=== PATIENT | female | born 1960 | race Caucasian/White ===

== ENCOUNTER 2018-06-18 15:01 | Inpatient (IN) | payer OTHER ==
[2018-06-18 16:01] LABS: ABSOLUTE BASOPHILS # (AUTO) 0.1 10^3/uL (0.0-0.2); ABSOLUTE LYMPHOCYTES (AUTO) 0.7 10^3/uL (0.5-4.7); ABSOLUTE MONOCYTES (AUTO) 0.7 10^3/uL (0.1-1.4); ABSOLUTE NEUT (AUTO) 6.8 10^3/uL (1.7-8.2); BASOPHILS % (AUTO) 0.6 % (0-2); EOSINOPHILS % (AUTO) 0.1 % (0-6); HEMATOCRIT 35.4 % (36.0-47.0); HEMOGLOBIN 12.1 g/dL (12.0-15.5); LYMPHOCYTES % (AUTO) 8.3 % (13-45); MEAN CORPUSCULAR HEMOGLOBIN 29.3 pg (27.0-33.4); MEAN CORPUSCULAR HGB CONC 34.3 g/dL (32.0-36.0); MEAN CORPUSCULAR VOLUME 86 fl (80-97); MONOCYTES % (AUTO) 8.3 % (3-13); PLATELET COUNT 298 10^3/uL (150-450); RED BLOOD COUNT 4.13 10^6/uL (3.72-5.28); RED CELL DISTRIBUTION WIDTH 17.1 % (11.5-14.0); SEGMENTED NEUTROPHILS % (AUTO) 82.7 % (42-78); TOTAL CELLS COUNTED % (AUTO) 100 %; WHITE BLOOD COUNT 8.3 10^3/uL (4.0-10.5)
[2018-06-18 16:18] LABS: ALANINE AMINOTRANSFERASE 58 U/L (9-52); ALBUMIN 3.3 g/dL (3.5-5.0); ALKALINE PHOSPHATASE 118 U/L (38-126); ANION GAP 16 (5-19); ASPARTATE AMINO TRANSFERASE 106 U/L (14-36); BILIRUBIN,DIRECT 0.5 mg/dL (0.0-0.4); BILIRUBIN,TOTAL 0.5 mg/dL (0.2-1.3); BLOOD UREA NITROGEN 18 mg/dL (7-20); CALCIUM 8.2 mg/dL (8.4-10.2); CARBON DIOXIDE 16 mmol/L (22-30); CHLORIDE 111 mmol/L (98-107); GLUCOSE 122 mg/dL (75-110); POTASSIUM 3.4 mmol/L (3.6-5.0); SODIUM 142.8 mmol/L (137-145); TOTAL PROTEIN 6.7 g/dL (6.3-8.2)
[2018-06-18 16:20] LABS: ACETAMINOPHEN < 10 ug/mL (10-30); ALCOHOL < 10 mg/dL (NONE DETECTED)
[2018-06-18 16:30] LABS: NT PRO BNP 336 pg/mL (5-900)
[2018-06-18 16:31] LABS: SALICYLATE 68.3 mg/dL (2.0-20.0)
[2018-06-18 16:32] LABS: TROPONIN I < 0.012 ng/mL
[2018-06-18 16:34] LABS: FREE T4 (FREE THYROXINE) 1.28 ng/dL (0.78-2.19)
[2018-06-18 16:48] LABS: THYROID STIMULATING HORMONE 0.78 uIU/mL (0.47-4.68)
[2018-06-18] MEDS ORDERED: SODIUM BICARBONATE 8.4% INJ 50 MEQ/50 ML DISP.SYRIN ONE (16:57)
--- NOTE | 2018-06-18 17:01 | PSYCHOLOGICAL NOTE ---
Psych Note - Psych Note Date seen by psych provider: 06/18/18 Time seen by psych provider: 16:22 - Chart review at 1620. Evaluation from 1622- 1635. Psych Note: Reason for Consult: Anxiety, Grief, noncompliant with all medications x 3 months Contact Permissions: Unknown. Noted a friend/Volunteer Fire at [facility] Patient is a 57 year old female who presented to the ED today via EMS for nausea and anxiety, was administered Zofran 4MG IV and Benadryl 25MG IV via EMS (friend who is Volunteer at [facility] and helps with taking care of the land), reported she had been living out of her car the past 3 weeks and been off all medications the past 3 months. She reported she quit taking her medications in February 2018. She mentioned the sciatic pain/vertebrate pain (she admitted she was taking a lot of BC Powder to manage the pain, the ringing in her ears was be tter) brought out her emotional pain, she "was holding so much in and did not know, I started spiraling and hit bottom." She reported "I am in touch with reality, I can say my name, add up numbers, recall dates and events and know the president, I am lucid." She acknowledged her son shot and killed himself 4.5 years ago at age 22 on 2014. She commented "that was my only son, I have nothing now." When asked about SI she stated "I have honestly and deeply asked myself that, I don't want to kill myself, I wish God would give me a reason to be alive, I came close, I didn't care, I have never not cared." She admitted "I have thoughts of wanting to join my son, not active SI but passive, like if a train was coming and I was there would I get out of the way I don't know but I would not do something intentional." She identified she was prescribed Citalopram 20MG QD until 4.5 years ago when her son killed himself then it was increased to 40MG QD, Gabapentin 300MG (unknown frequency), Lisinopril and something for under active Thyroid issues (was Synthroid, but did not work, so used something else, thinks it was Thyroxaline). She stated she stopped her medication abruptly in February 2018. She reported she goes to [facility] and [facility] in [place] is pharmacy. She denied previous MH hospitalizations. 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 She stated she has [address] acres [address] land with a cabin that has a brand new bed and a horse trailer so she is not homeless. Patient was alert and oriented to self, person, place, time and situation. Mood was depressed with congruent affect as evidenced by tearful and crying but at appropriate times (talking about the of her son). She denied current SI/HI, stated she often wishes she would join her son, denied active SI, no plan/preparation and no previous attempts. She did not appear to be responding to internal stimuli as evidenced fair eye contact, answering questions appropriately when addressed, staying on topic, carrying on dialogue conversation and being engaged in evaluation. Thought processes were linear. Conversational speech was within normal limits for rate, tone and prosody. Intellectual abilities are estimated to be average. Insight, judgment and impulse control were fair as evidenced by discussing and processing her grief and current situation. Diagnosis: Noncompliant with all medications x 3 months V62.82 (Z63.4) Uncomplicated Bereavement 311 (F32.9) Unspecified Depressive Disorder Medication recommendations made by the psychiatric medical provider, Dr. Jassi MD., includes: Request Thyroid Level Add Effexor 37.5MG kirk for depression/increased energy Add Buspar 5MG twice a day for anxiety/calming effect/depression/sleep Impression/Plan: Recommendation to keep as overnight MH hold for observation, mainly to ensure she tolerated medication well. Starting new psychiatric medications to address depression, anxiety and grief. She denied current SI/HI, past attempts and no observed psychosis. Consulted with Dr. Patel regarding the management and care of patient. ED Physician aware of recommendations and reported patient is being admitted for elevated salicylate levels from taking BC Powders for pain. Please re consult the [facility] Behavioral Health team if needed when patient is ready for discharge. Thank you.
[2018-06-18] MEDS ORDERED: RINGERS SOLUTION,LACTATED 1,000 ML IV ONE (17:11)
--- NOTE | 2018-06-18 17:13 | ER Document Report ---
ED General - General Chief Complaint: Anxiety Stated Complaint: ANXIETY Time Seen by Provider: 06/18/18 15:11 Notes: Patient is a 57-year-old female with history of hypothyroidism, depression, anxiety, hypertension that presents to the emergency department for chief complaint of sciatic pain. Patient was reportedly found walking on the street, partially closed, her feet were covered in dirt, and was brought in by EMS. Patient at this time has pressured speech, and claiming she has back pain rating to her legs, claims a history of sciatica. She states she has been taking her medication for about 3 months, has been living in her car for about 3 weeks. She has been taking BC powders, she states at least 2 packets every 8 hours but sometimes she was taking that more frequently than that every 4 hours for her pain. She has been having tinnitus as a result of this. And some confusion. She denies having any difficulty breathing, chest pain, shortness of breath, abdominal pain, but she has been having nausea and vomiting which she did have when she was taking the BC powders more frequently. Past Medical History: Hypertension, hypothyroidism, depression, anxiety, sciatica Past Surgical History: Denies major surgical history Social History: Denies tobacco, alcohol or drug use. Was a former smoker. Family History: Reviewed and noncontributory for presenting illness Allergies: Reviewed, see documented allergy list. REVIEW OF SYSTEMS: Other than noted above, the 12 point review of systems was reviewed with the patient and were negative, all pertinent findings are included in the HPI. PHYSICAL EXAMINATION: Vital signs reviewed, nursing noted reviewed. GENERAL: Patient is morbidly obese, disheveled, covered in dirt on her feet and legs HEAD: Atraumatic, normocephalic. EYES: Eyes appear normal, extraocular movements intact, sclera anicteric, conjunctiva are normal. ENT: nares patent, oropharynx clear without exudates. Moist mucous membranes. NECK: Normal range of motion, supple without lymphadenopathy LUNGS: Diminished lung sounds throughout, without wheezing, rhonchi or rales., No significant respiratory distress. HEART: Heart rate tachycardic, regular rhythm, no audible murmur. ABDOMEN: Soft, obese, nontender, normoactive bowel sounds. No rebound, guarding, or rigidity. No masses appreciated. EXTREMITIES: Significant bilateral lower extremity edema, to the mid thighs, no significant tenderness to palpation to the feet. NEUROLOGICAL: Patient is somewhat confused, and has a bizarre affect as noted below, moves all extremities spontaneously Motor and sensory grossly intact on exam. PSYCH: Pressured speech, bizarre affect. SKIN: Warm, Dry, normal turgor, venous stasis skin changes noted to the lower extremities bilaterally. Suspected candidal infection under the breast, and abdominal folds and skin of the legs. TRAVEL OUTSIDE OF THE [place] IN LAST 30 DAYS: No Past Medical History - Social History Smoking Status: Never Smoker Family History: Reviewed & Not Pertinent Patient has suicidal ideation: No Patient has homicidal ideation: No - Past Medical History Cardiac Medical History: Reports: Hx Hypercholesterolemia, Hx Hypertension Renal/ Medical History: Denies: Hx Peritoneal Dialysis Psychiatric Medical History: Reports: Hx Depression Physical Exam - Vital signs Vitals: Temp Pulse Resp BP Pulse Ox 99.0 F 160 H 22 H 168/90 H 100 06/18/18 15:38 06/18/18 15:38 06/18/18 15:38 06/18/18 15:38 06/18/18 15:38 Course - Re-evaluation Re-evalutation: Patient seen and examined vital signs reviewed. Laboratory data and imaging were ordered as appropriate for the patient's presenting symptoms and complaint, with consideration of any critical or life threatening conditions that may be associated with their obtained history and exam as noted above. Patient was treated with IV fluid, and started on IV bicarb infusion, Results were reviewed when available and demonstrated severely elevated salicylate level, metabolic acidosis, concerning for chronic salicylate toxicity the patient did have tinnitus, which is consistent with this, and she is somewhat confused, she is protecting her airway, and not lethargic. The patient was re-evaluated and was complaining of some pain, she is given a low dose of fentanyl 25 mcg for her sciatica type pain. Evaluation was most consistent with chronic salicylate toxicity, with high salicylate level, requiring admission to the hospital, with metabolic acidosis Results were discussed with the patient at this point after careful consideration I feel that that patient should be admitted to the hospital. This was discussed with the patient that it is in the best interest for their care to be admitted for further evaluation and management. Patient agreed with this plan of care. A call was placed to the admitted physician, Dr. Kc who graciously accepted the patient onto their service. *Note is created using voice recognition software and may contain spelling, syntax or grammatical errors. Laboratory 06/18/18 06/18/18 06/18/18 15:43 15:43 15:43 WBC 8.3 RBC 4.13 Hgb 12.1 Hct 35.4 L MCV 86 MCH 29.3 MCHC 34.3 RDW 17.1 H Plt Count 298 Seg Neutrophils % 82.7 H Lymphocytes % 8.3 L Monocytes % 8.3 Eosinophils % 0.1 Basophils % 0.6 Absolute Neutrophils 6.8 Absolute Lymphocytes 0.7 Absolute Monocytes 0.7 Absolute Eosinophils 0.0 Absolute Basophils 0.1 Sodium 142.8 Potassium 3.4 L Chloride 111 H Carbon Dioxide 16 L Anion Gap 16 BUN 18 Creatinine 1.19 Est GFR ( Amer) 56 L Est GFR (Non-Af Amer) 46 L Glucose 122 H Calcium 8.2 L Total Bilirubin 0.5 Direct Bilirubin 0.5 H Neonat Total Bilirubin Not Reportable Neonat Direct Bilirubin Not Reportable Neonat Indirect Bili Not Reportable AST 106 H ALT 58 H Alkaline Phosphatase 118 Creatine Kinase Troponin I < 0.012 NT-Pro-B Natriuret Pep 336 Total Protein 6.7 Albumin 3.3 L TSH Free T4 Salicylates 68.3 H* Acetaminophen < 10 L Serum Alcohol < 10 06/18/18 06/18/18 15:43 15:43 WBC RBC Hgb Hct MCV MCH MCHC RDW Plt Count Seg Neutrophils % Lymphocytes % Monocytes % Eosinophils % Basophils % Absolute Neutrophils Absolute Lymphocytes Absolute Monocytes Absolute Eosinophils Absolute Basophils Sodium Potassium Chloride Carbon Dioxide Anion Gap BUN Creatinine Est GFR ( Amer) Est GFR (Non-Af Amer) Glucose Calcium Total Bilirubin Direct Bilirubin Neonat Total Bilirubin Neonat Direct Bilirubin Neonat Indirect Bili AST ALT Alkaline Phosphatase Creatine Kinase 260 H Troponin I NT-Pro-B Natriuret Pep Total Protein Albumin TSH 0.78 Free T4 1.28 Salicylates Acetaminophen Serum Alcohol - Vital Signs Vital signs: Temp Pulse Resp BP Pulse Ox 99.0 F 160 H 22 H 110/54 L 99 06/18/18 15:38 06/18/18 15:38 06/18/18 19:48 06/18/18 19:48 06/18/18 19:48 - Laboratory Result Diagrams: 06/18/18 15:43 06/18/18 19:40 Laboratory results interpreted by me: 06/18/18 06/18/18 06/18/18 15:43 15:43 15:43 Hct 35.4 L RDW 17.1 H Seg Neutrophils % 82.7 H Lymphocytes % 8.3 L Potassium 3.4 L Chloride 111 H Carbon Dioxide 16 L Est GFR ( Amer) 56 L Est GFR (Non-Af Amer) 46 L Glucose 122 H Calcium 8.2 L Direct Bilirubin 0.5 H AST 106 H ALT 58 H Creatine Kinase 260 H Albumin 3.3 L Salicylates 68.3 H* Acetaminophen < 10 L - EKG Interpretation by Me Additional EKG results interpreted by me: EKG demonstrates sinus tachycardia with a ventricular rate of 100 bpm, normal axis, normal intervals, no evidence of acute ischemia in this EKG. Critical Care Note - Critical Care Note Total time excluding time spent on procedures (mins): 35 Comments: Critical care time 5 minutes exclusive from separate billable procedures for a patient requiring complex medical decision making, and high potential for clinical deterioration. In a patient with salicylate toxicity requiring acute management and treatment and admission to the hospital. Time spent obtaining history from patient or surrogate, discussions with consultants, development of treatment plan with patient or surrogate, evaluation of patient's response to treatment, examination of patient, ordering and performing treatments and interventions, ordering and review of laboratory studies, re-evaluation of patient's condition, ordering and review of radiographic studies and review of old charts Discharge - Discharge Clinical Impression: Metabolic acidosis, Toxic metabolic encephalopathy, Hypokalemia Salicylate intoxication Qualifiers: Encounter type: initial encounter Injury intent: accidental or unintentional Qualified Code(s): T39.091A - Poisoning by salicylates, accidental (uninte ntional), initial encounter Condition: Stable Disposition: ADMITTED INPATIENT Admitting Provider: De (Hospitalist) Unit Admitted: [facility]
[2018-06-18] MEDS: DEXTROSE 5%-WATER 1000 ML 1,000 ML with SODIUM BICARBONATE 150 MEQ IV PRN ×2 (17:18)
[2018-06-18] MEDS ORDERED: FENTANYL CITRATE INJ/PF 100 MCG/2 ML AMPUL IV ONE (17:44)
[2018-06-18] MEDS ORDERED: LEVALBUTEROL HCL NEB 1.25 MG/3 ML AMPUL NEB PRN (18:15)
[2018-06-18] MEDS ORDERED: ONDANSETRON 4 MG TAB.RAPDIS PO PRN (18:25)
[2018-06-18] MEDS ORDERED: MAG HYDROX/AL HYDROX/SIMETH SUSP 30 ML UDCUP PO PRN (18:25)
[2018-06-18] MEDS ORDERED: POTASSI CL 20 MEQ/50 ML RIDER 20 MEQ/50 ML RTUPB IV ONE (19:30)
[2018-06-18] MEDS ORDERED: POTASSIUM CHLORIDE 10 MEQ CAPSULE.ER PO ONE (19:37)
[2018-06-18 19:45] LABS: ARTERIAL BLOOD FIO2 ROOM AIR; ARTERIAL BLOOD H2CO3 0.61 mmol/L (1.05-1.35); ARTERIAL BLOOD HCO3 16.9 mmol/L (20-24); ARTERIAL BLOOD O2 SATURATION 98.6 % (94-98); ARTERIAL BLOOD PH 7.54 (7.35-7.45); ARTERIAL BLOOD PO2 112.4 mmHg (80-100); ARTERIAL BLOOD TOTAL CO2 17.5 mmol/L (21-25)
[2018-06-18 19:47] LABS: ARTERIAL BLOOD PCO2 20.3 mmHg (35-45)
--- NOTE | 2018-06-18 19:48 | PDOC H&P ---
History of Present Illness Admission Date/PCP: 06/18/18 17:40 MARILYN RUDD PA-C Patient complains of: salicylate toxicity History of Present Illness: GEOFF ALMEIDA is a 57 year old female who is on line of duty disability from the [employer]. She was found wandering and confused. She has chronic sciatica and has been taking salicylate-containing products long-term. Her salicylate level was 60. She is disheveled and unkempt. She has deteriorated since February. February 14 was the 4-year anniversary of her son's suicide. She states that in the beginning of May she woke up and her legs were numb She could not move them. She had a lot of pain from the sciatica. Her legs were shaking and she felt paralyzed. Her legs would not move. There is nothing that gave her relief. She reports that she had to crab crawl to get into the ambulan ce. She is exhibiting pressured speech and restlessness/agitation. She expresses that she has been overwhelmed. There are times when she feels that she is going to explode from the psychological pressures of her depression. 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 Past Surgical History Past Surgical History: Reports: Herniorrhaphy, Orthopedic Surgery - Right thumb Social History Information Source: Patient Lives with: Alone, Homeless - Possibly homeless Smoking Status: Never Smoker Frequency of Alcohol Use: None Hx Recreational Drug Use: No Drugs: None Hx Prescription Drug Abuse: No - Advance Directive Resuscitation Status: Full Code Family History Family History: CAD, DM, Other - Suicide Parental Family History Reviewed: Yes Children Family History Reviewed: Yes - Son committed suicide Sibling(s) Family History Reviewed.: Yes Review of Systems Constitutional: PRESENT: headache(s), weakness - Especially legs. ABSENT: fever(s) Eyes: ABSENT: visual disturbances Ears: PRESENT: hearing changes - Slightly hard of hearing Nose, Mouth, and Throat: ABSENT: mouth pain, sore throat Cardiovascular: PRESENT: edema. ABSENT: chest pain, palpitations Respiratory: PRESENT: dyspnea. ABSENT: cough, sputum Gastrointestinal: PRESENT: heartburn. ABSENT: abdominal pain, constipation, diarrhea, hematochezia, melena, nausea, vomiting Genitourinary: ABSENT: dysuria, hematuria Musculoskeletal: PRESENT: other - Marked bilateral lower extremity lymphedema Integumentary: PRESENT: erythema - Redness distal legs likely stasis dermatitis from chronic significant lymphedema, lesions - Keratin scaling on lower extremities from chronic severe lymphedema Neurological: PRESENT: numbness - Reports tingling and numbness in her legs, other - Difficult to assess Psychiatric: PRESENT: depression, other - Agitation Endocrine: PRESENT: polyuria - Reports significant urine production. ABSENT: cold intolerance, heat intolerance, polyphagia Hematologic/Lymphatic: ABSENT: easy bruising, lymphadenopathy Allergic/Immunologic: ABSENT: seasonal rhinorrhea Physical Exam Vital Signs: Temp Pulse Resp BP Pulse Ox 99.0 F 160 H 21 H 105/56 L 98 06/18/18 15:38 06/18/18 15:38 06/18/18 18:01 06/18/18 18:01 06/18/18 18:01 General appearance: PRESENT: disheveled, morbidly obese, severe distress - Moderate to severe distress, well-developed Head exam: PRESENT: atraumatic, normocephalic Eye exam: PRESENT: conjunctiva pink, EOMI. ABSENT: scleral icterus Ear exam: PRESENT: normal external ear exam Mouth exam: PRESENT: dry mucosa, tongue midline Neck exam: ABSENT: carotid bruit, JVD, lymphadenopathy, tenderness Respiratory exam: PRESENT: clear to auscultation naz, symmetrical, tachypnea, unlabored. ABSENT: rales, rhonchi, wheezes Cardiovascular exam: PRESENT: RRR, +S1, +S2 GI/Abdominal exam: PRESENT: normal bowel sounds, soft, other - Pendulous abdomen. ABSENT: tenderness Rectal exam: PRESENT: deferred Gentrourinary exam: ABSENT: indwelling catheter Extremities exam: PRESENT: pedal edema - Marked lower extremity chronic lymphedema with associated skin changes Neurological exam: PRESENT: alert, awake, oriented to person, oriented to place, oriented to time, oriented to situation. ABSENT: motor sensory deficit Psychiatric exam: PRESENT: agitated, unusual affect Focused psych exam: PRESENT: pressured speech Skin exam: PRESENT: erythema, rash - Stasis dermatitis, other - Keratin scaling Results Laboratory Results: 06/18/18 15:43 06/18/18 15:43 06/18/18 06/18/18 06/18/18 15:43 15:43 15:43 WBC 8.3 RBC 4.13 Hgb 12.1 Hct 35.4 L MCV 86 MCH 29.3 MCHC 34.3 RDW 17.1 H Plt Count 298 Seg Neutrophils % 82.7 H Lymphocytes % 8.3 L Monocytes % 8.3 Eosinophils % 0.1 Basophils % 0.6 Absolute Neutrophils 6.8 Absolute Lymphocytes 0.7 Absolute Monocytes 0.7 Absolute Eosinophils 0.0 Absolute Basophils 0.1 Sodium 142.8 Potassium 3.4 L Chloride 111 H Carbon Dioxide 16 L Anion Gap 16 BUN 18 Creatinine 1.19 Est GFR ( Amer) 56 L Est GFR (Non-Af Amer) 46 L Glucose 122 H Calcium 8.2 L Total Bilirubin 0.5 AST 106 H ALT 58 H Alkaline Phosphatase 118 Total Protein 6.7 Albumin 3.3 L TSH 0.78 Free T4 1.28 06/18/18 15:43 Troponin I < 0.012 NT-Pro-B Natriuret Pep 336 Assessment and Plan - Diagnosis (1) Salicylate intoxication Qualifiers: Encounter type: initial encounter Injury intent: accidental or unintentional Qualified Code(s): T39.091A - Poisoning by salicylates, accidental (unintentional), initial encounter Is this a current diagnosis for this admission?: Yes Plan: The patient was taking salicylate-containing medications for sciatica with chronic back pain. She developed salicylate toxicity from long-term use. Her salicylate level was 62. She will require admission to the ICU. Bicarbonate drip. Close monitoring of salicylate levels, urine pH and electrolytes. We will titrate the bicarb drip to achieve a urine pH of 7.5-8.0. Once the salicylate level is less than 40 alkalinization can be discontinued. (2) Metabolic acidosis Is this a current diagnosis for this admission?: Yes Plan: Secondary to salicylate toxicity. Bicarb drip and close monitoring of electrolytes. Low serum potassium is expected with the bicarb infusion. (3) Hypokalemia Is this a current diagnosis for this admission?: Yes Plan: Serum potassium on admission was only 3.2. With the use of sodium bicarbonate the serum potassium will drop. I have ordered 20 mEq to be given now and she will likely need aggressive potassium supplementation through the night. (4) Hypertension Qualifiers: Hypertension type: essential hypertension Qualified Code(s): I10 - Essential (primary) hypertension Is this a current diagnosis for this admission?: Yes Plan: I have started losartan 25 mg daily. She does have a history of hypertension but stopped taking medicine months ago. (5) Depression Qualifiers: Depression Type: major depressive disorder Is this a current diagnosis for this admission?: Yes Plan: Please see the psychiatry note. The patient has been extremely depressed since her son committed suicide in 2014 on February 14. The patient began to decline at this anniversary date. On May 15 she decompensated significantly. Psychiatry has recommended starting low-dose Effexor as well as BuSpar. (6) Sciatica Qualifiers: Laterality: bilateral Qualified Code(s): M54.31 - Sciatica, right side; M54.32 - Sciatica, left side Is this a current diagnosis for this admission?: Yes Plan: The patient was taking salicylate-containing medications because of sciatica and leg pain. She was on gabapentin in the past and I have started low-dose gabapentin. She may benefit from duloxetine as it treats depression and chronic pain. For this evening she has IV fentanyl available. Long-term she would benefit from weight loss and physical therapy. (7) Stasis dermatitis of both legs Is this a current diagnosis for this admission?: Yes Plan: For the present we will elevate the legs, treat the keratin scaling and monitor closely. Long-term plans should include weight loss and compression therapy. (8) Lymphedema Is this a current diagnosis for this admission?: Yes Plan: Chronic lymphedema with stasis dermatitis. Improved hygiene, leg elevation and Eucerin to help soften the keratin scaling will be the first steps. No antibiotics are required at this point. At some point, chronic lymphedema therapy with compression would benefit the patient as well. (9) Morbid obesity with BMI of 40.0-44.9, adult Is this a current diagnosis for this admission?: Yes Plan: Long-term the patient will benefit from weight loss. Will help with her cardiac risk factors as well as her chronic sciatica. Recovery from the acute episode takes precedence. - Time Time Spent with patient: 85 minutes Medications reviewed and adjusted accordingly: Yes - Inpatient Certification Based on my medical assessment, after consideration of the patient's comorbidities, presenting symptoms, or acuity I expect that the services needed warrant INPATIENT care.: Yes I certify that my determination is in accordance with my understanding of Medicare's requirements for reasonable and necessary INPATIENT services [42 CFR 412.3e].: Yes Medical Necessity: Need Close Monitoring Due to Risk of Patient Decompensation, Need For IV Fluids, Need For Continuous Telemetry Monitoring, Need for Neurological Checks, Need for Pain Control, Risk of Complication if Not Cared For in Hospital
[2018-06-18 19:51] LABS: VENOUS BLOOD PCO2 25.5 mmHg (35-63); VENOUS BLOOD PH 7.49 (7.30-7.42)
[2018-06-18 20:15] LABS: ANION GAP 13 (5-19); BLOOD UREA NITROGEN 18 mg/dL (7-20); CALCIUM 7.9 mg/dL (8.4-10.2); CARBON DIOXIDE 18 mmol/L (22-30); CHLORIDE 112 mmol/L (98-107); GLUCOSE 117 mg/dL (75-110); POTASSIUM 3.4 mmol/L (3.6-5.0); SODIUM 142.7 mmol/L (137-145)
[2018-06-18 20:19] LABS: APPEARANCE,URINE TURBID; BILIRUBIN,URINE NEGATIVE (NEGATIVE); COLOR,URINE YELLOW; GLUCOSE, URINE NEGATIVE (NEGATIVE); KETONES,URINE TRACE mg/dL (NEGATIVE); LEUKOCYTE ESTERASE,URINE LARGE (NEGATIVE); NITRITE,URINE NEGATIVE (NEGATIVE); PROTEIN,URINE NEGATIVE (NEGATIVE); URINE SPECIFIC GRAVITY 1.012; UROBILINOGEN,URINE NEGATIVE mg/dL (<2.0)
[2018-06-18 20:30] LABS: SALICYLATE 63.8 mg/dL (2.0-20.0)
[2018-06-18] MEDS: HALOPERIDOL LACTATE INJ 5 MG/1 ML VIAL IV PRN (20:30)
[2018-06-18 20:31] LABS: URINE AMPHETAMINES SCREEN NEGATIVE; URINE BARBITURATES SCREEN NEGATIVE; URINE BENZODIAZEPINES SCREEN NEGATIVE; URINE COCAINE SCREEN NEGATIVE; URINE MARIJUANA (THC) SCREEN NEGATIVE; URINE METHADONE SCREEN NEGATIVE; URINE PHENCYCLIDINE SCREEN NEGATIVE
[2018-06-18 21:26] LABS: APPEARANCE,URINE SLIGHTLY-CLOUDY; BILIRUBIN,URINE NEGATIVE (NEGATIVE); COLOR,URINE YELLOW; GLUCOSE, URINE NEGATIVE (NEGATIVE); KETONES,URINE NEGATIVE (NEGATIVE); LEUKOCYTE ESTERASE,URINE NEGATIVE (NEGATIVE); NITRITE,URINE NEGATIVE (NEGATIVE); PROTEIN,URINE NEGATIVE (NEGATIVE); URINE SPECIFIC GRAVITY 1.008; UROBILINOGEN,URINE NEGATIVE mg/dL (<2.0)
[2018-06-18] MEDS: FENTANYL CITRATE INJ/PF 100 MCG/2 ML AMPUL IV PRN (22:00)
[2018-06-18 22:23] LABS: VENOUS BLOOD BASE EXCESS -2.3 mmol/L; VENOUS BLOOD PCO2 26.4 mmHg (35-63); VENOUS BLOOD PH 7.5 (7.30-7.42)
--- NOTE | 2018-06-18 22:30 | Operative Report ---
Nonrecallable Operative Report DATE OF SURGERY: 06/18/18 PREOPERATIVE DIAGNOSIS: 1. Phlebosclerosis. 2. Salicylate overdose POSTOPERATIVE DIAGNOSIS: Same as above OPERATION: 1. Ultrasound-guided central venous puncture. 2. Left IJ central line placement SURGEON: ALISIA LARA ANESTHESIA: Local TISSUE REMOVED OR ALTERED: None COMPLICATIONS: None apparent ESTIMATED BLOOD LOSS: Minimal PROCEDURE: Drains/implants: Left IJ central line at 14 cm. Procedure in detail: After informed consent was obtained from the patient, she was laid in the Trendelenburg position in the intensive care unit. The area of the left neck and chest were prepped and draped in a normal sterile fashion. An ultrasound was used to identify the left internal jugular vein. It was compressible with normal flow. Under direct ultrasonic guidance, the left internal jugular vein was accessed using the supplied needle. Dark venous, n onpulsatile blood was returned in the syringe. The wire was inserted through the needle, into the vein. It passed easily. This was confirmed to be within the lumen of the vein using the ultrasound device. Photodocumentation was obtained. The catheter was then slid over the wire using a modified Seldinger technique. The catheter was sutured to the skin. The catheter was then aspirated and flushed x3 without difficulty. A dressing was placed, and the procedure was concluded. All sponge, instrument, and needle counts were correct x2. Condition: Critical in ICU.
--- NOTE | 2018-06-18 22:38 | EKG REPORT ---
SEVERITY:- OTHERWISE NORMAL ECG - SINUS TACHYCARDIA : Confirmed by: Amira Gallagher 18-Jun-2018 22:36:39
--- NOTE | 2018-06-18 22:49 | RADIOLOGY REPORT (SQ) ---
EXAM DESCRIPTION: XR CHEST 1 VIEW COMPLETED DATE/TME: 06/18/2018 22:04 CLINICAL HISTORY: 57 years, Female, TLC placement COMPARISON: None. NUMBER OF VIEWS: 1 TECHNIQUE: Portable chest LIMITATIONS: None. FINDINGS: Heart size is normal. Central venous catheter with the tip likely in the proximal SVC or brachiocephalic/caval junction. No pneumothorax. Lungs are clear IMPRESSION: Tip of the central line likely in the proximal SVC versus brachiocephalic/caval junction. No pneumothorax copyright 2010 [employer]- All Rights Reserved
[2018-06-18 23:49] LABS: AMORPHOUS SEDIMENT,URINE TRACE /HPF; APPEARANCE,URINE CLEAR; BILIRUBIN,URINE NEGATIVE (NEGATIVE); COLOR,URINE YELLOW; GLUCOSE, URINE NEGATIVE (NEGATIVE); KETONES,URINE NEGATIVE (NEGATIVE); LEUKOCYTE ESTERASE,URINE NEGATIVE (NEGATIVE); NITRITE,URINE NEGATIVE (NEGATIVE); PROTEIN,URINE NEGATIVE (NEGATIVE); URINE SPECIFIC GRAVITY 1.009; UROBILINOGEN,URINE NEGATIVE mg/dL (<2.0)
[2018-06-19] MEDS: BUSPIRONE HCL 10 MG TABLET PO SCH ×3 (00:21→21:36)
[2018-06-19] MEDS: HEPARIN SOD (PORCINE) 5,000 UNIT/ML 1 ML SYRINGE SUBCUT SCH ×4 (00:21→21:36)
[2018-06-19] MEDS: MINERAL OIL/PETROLATUM,WHITE CREAM 114 GM TP SCH ×4 (00:22→17:25)
[2018-06-19 00:54] LABS: VENOUS BLOOD BASE EXCESS -0.7 mmol/L; VENOUS BLOOD HCO3 21.7 mmol/L (20-32); VENOUS BLOOD PCO2 29.8 mmHg (35-63); VENOUS BLOOD PH 7.48 (7.30-7.42)
[2018-06-19 01:01] LABS: APPEARANCE,URINE CLEAR; BILIRUBIN,URINE NEGATIVE (NEGATIVE); COLOR,URINE YELLOW; GLUCOSE, URINE NEGATIVE (NEGATIVE); KETONES,URINE NEGATIVE (NEGATIVE); LEUKOCYTE ESTERASE,URINE NEGATIVE (NEGATIVE); NITRITE,URINE NEGATIVE (NEGATIVE); PROTEIN,URINE NEGATIVE (NEGATIVE); URINE SPECIFIC GRAVITY 1.006; UROBILINOGEN,URINE NEGATIVE mg/dL (<2.0)
[2018-06-19] MEDS ORDERED: SODIUM BICARBONATE 8.4% INJ 50 MEQ/50 ML DISP.SYRIN ONE ×3 (01:10→06:41)
[2018-06-19 01:15] LABS: ANION GAP 10 (5-19); BLOOD UREA NITROGEN 17 mg/dL (7-20); CALCIUM 7.5 mg/dL (8.4-10.2); CARBON DIOXIDE 21 mmol/L (22-30); CHLORIDE 112 mmol/L (98-107); GLUCOSE 104 mg/dL (75-110); SODIUM 142.5 mmol/L (137-145)
[2018-06-19 01:29] LABS: SALICYLATE 58.2 mg/dL (2.0-20.0)
[2018-06-19] MEDS: DEXTROSE 5%-WATER 1000 ML 1,000 ML with SODIUM BICARBONATE 150 MEQ IV PRN ×4 (01:29→06:52)
[2018-06-19] MEDS ORDERED: POTASSI CL 20 MEQ/50 ML RIDER 20 MEQ/50 ML RTUPB IV ONE ×2 (01:35→16:02)
[2018-06-19] MEDS: POTASSIUM CHLORIDE 20 MEQ/50 ML RTU IV SCH ×7 (01:55→18:14)
[2018-06-19 02:44] LABS: APPEARANCE,URINE CLEAR; BILIRUBIN,URINE NEGATIVE (NEGATIVE); COLOR,URINE YELLOW; GLUCOSE, URINE NEGATIVE (NEGATIVE); KETONES,URINE NEGATIVE (NEGATIVE); LEUKOCYTE ESTERASE,URINE NEGATIVE (NEGATIVE); NITRITE,URINE NEGATIVE (NEGATIVE); PROTEIN,URINE NEGATIVE (NEGATIVE); URINE SPECIFIC GRAVITY 1.009; UROBILINOGEN,URINE NEGATIVE mg/dL (<2.0)
[2018-06-19 02:47] LABS: VENOUS BLOOD BASE EXCESS 1.3 mmol/L; VENOUS BLOOD HCO3 24.3 mmol/L (20-32); VENOUS BLOOD PCO2 32.7 mmHg (35-63); VENOUS BLOOD PH 7.49 (7.30-7.42)
[2018-06-19 03:07] LABS: ANION GAP 11 (5-19)
[2018-06-19 04:09] LABS: BLOOD UREA NITROGEN 17 mg/dL (7-20); CALCIUM 7.5 mg/dL (8.4-10.2); CARBON DIOXIDE 22 mmol/L (22-30); CHLORIDE 112 mmol/L (98-107); GLUCOSE 95 mg/dL (75-110); SODIUM 145.1 mmol/L (137-145)
[2018-06-19 05:03] LABS: VENOUS BLOOD BASE EXCESS 1.9 mmol/L; VENOUS BLOOD HCO3 24.4 mmol/L (20-32); VENOUS BLOOD PCO2 31.4 mmHg (35-63); VENOUS BLOOD PH 7.51 (7.30-7.42)
[2018-06-19 05:05] LABS: APPEARANCE,URINE CLEAR; BILIRUBIN,URINE NEGATIVE (NEGATIVE); COLOR,URINE YELLOW; GLUCOSE, URINE NEGATIVE (NEGATIVE); KETONES,URINE NEGATIVE (NEGATIVE); LEUKOCYTE ESTERASE,URINE NEGATIVE (NEGATIVE); NITRITE,URINE NEGATIVE (NEGATIVE); PROTEIN,URINE NEGATIVE (NEGATIVE); UROBILINOGEN,URINE NEGATIVE mg/dL (<2.0)
[2018-06-19 05:29] LABS: ANION GAP 10 (5-19); BLOOD UREA NITROGEN 17 mg/dL (7-20); CALCIUM 7.3 mg/dL (8.4-10.2); CARBON DIOXIDE 24 mmol/L (22-30); CHLORIDE 112 mmol/L (98-107); GLUCOSE 91 mg/dL (75-110); POTASSIUM 3.1 mmol/L (3.6-5.0); SODIUM 146.1 mmol/L (137-145)
[2018-06-19 06:01] LABS: SALICYLATE 54.4 mg/dL (2.0-20.0)
[2018-06-19 06:41] LABS: VENOUS BLOOD BASE EXCESS 4.8 mmol/L; VENOUS BLOOD HCO3 27.2 mmol/L (20-32); VENOUS BLOOD PCO2 32.6 mmHg (35-63); VENOUS BLOOD PH 7.54 (7.30-7.42)
[2018-06-19 06:44] LABS: ABSOLUTE LYMPHOCYTES (AUTO) 1.6 10^3/uL (0.5-4.7); ABSOLUTE MONOCYTES (AUTO) 0.5 10^3/uL (0.1-1.4); ABSOLUTE NEUT (AUTO) 2.3 10^3/uL (1.7-8.2); HEMATOCRIT 29.4 % (36.0-47.0); TOTAL CELLS COUNTED % (AUTO) 100 %
[2018-06-19 06:48] LABS: APPEARANCE,URINE CLEAR; BILIRUBIN,URINE NEGATIVE (NEGATIVE); COLOR,URINE YELLOW; GLUCOSE, URINE NEGATIVE (NEGATIVE); KETONES,URINE NEGATIVE (NEGATIVE); LEUKOCYTE ESTERASE,URINE NEGATIVE (NEGATIVE); NITRITE,URINE NEGATIVE (NEGATIVE); PROTEIN,URINE NEGATIVE (NEGATIVE); URINE SPECIFIC GRAVITY 1.017; UROBILINOGEN,URINE NEGATIVE mg/dL (<2.0)
[2018-06-19 06:52] LABS: BASOPHILS % (AUTO) 0.3 % (0-2); EOSINOPHILS % (AUTO) 0.7 % (0-6); HEMOGLOBIN 10.1 g/dL (12.0-15.5); LYMPHOCYTES % (AUTO) 35.4 % (13-45); MEAN CORPUSCULAR HEMOGLOBIN 29.1 pg (27.0-33.4); MEAN CORPUSCULAR HGB CONC 34.2 g/dL (32.0-36.0); MEAN CORPUSCULAR VOLUME 85 fl (80-97); MONOCYTES % (AUTO) 11.4 % (3-13); PLATELET COUNT 244 10^3/uL (150-450); RED BLOOD COUNT 3.46 10^6/uL (3.72-5.28); RED CELL DISTRIBUTION WIDTH 16.4 % (11.5-14.0); SEGMENTED NEUTROPHILS % (AUTO) 52.2 % (42-78); WHITE BLOOD COUNT 4.4 10^3/uL (4.0-10.5)
[2018-06-19] MEDS: GABAPENTIN 100 MG CAPSULE PO SCH ×3 (06:57→21:36)
[2018-06-19] MEDS: PANTOPRAZOLE SODIUM 40 MG TABLET.DR PO SCH ×2 (06:57→16:19)
[2018-06-19 07:03] LABS: ANION GAP 8 (5-19); BLOOD UREA NITROGEN 16 mg/dL (7-20); CALCIUM 7.2 mg/dL (8.4-10.2); CARBON DIOXIDE 26 mmol/L (22-30); CHLORIDE 111 mmol/L (98-107); GLUCOSE 113 mg/dL (75-110); POTASSIUM 3.2 mmol/L (3.6-5.0)
[2018-06-19 07:14] LABS: SALICYLATE 51.4 mg/dL (2.0-20.0)
[2018-06-19 08:16] LABS: VENOUS BLOOD BASE EXCESS 4.6 mmol/L; VENOUS BLOOD HCO3 27.5 mmol/L (20-32); VENOUS BLOOD PCO2 34.5 mmHg (35-63); VENOUS BLOOD PH 7.52 (7.30-7.42)
[2018-06-19 08:19] LABS: APPEARANCE,URINE CLEAR; BILIRUBIN,URINE NEGATIVE (NEGATIVE); COLOR,URINE YELLOW; GLUCOSE, URINE NEGATIVE (NEGATIVE); KETONES,URINE TRACE mg/dL (NEGATIVE); LEUKOCYTE ESTERASE,URINE NEGATIVE (NEGATIVE); NITRITE,URINE NEGATIVE (NEGATIVE); PROTEIN,URINE NEGATIVE (NEGATIVE); URINE SPECIFIC GRAVITY 1.018; UROBILINOGEN,URINE NEGATIVE mg/dL (<2.0)
[2018-06-19 09:40] LABS: ANION GAP 7 (5-19); BLOOD UREA NITROGEN 17 mg/dL (7-20); CALCIUM 7.1 mg/dL (8.4-10.2); CARBON DIOXIDE 27 mmol/L (22-30); CHLORIDE 110 mmol/L (98-107); GLUCOSE 120 mg/dL (75-110); POTASSIUM 3.2 mmol/L (3.6-5.0); SODIUM 143.7 mmol/L (137-145)
--- NOTE | 2018-06-19 09:42 | EKG REPORT ---
SEVERITY:- NORMAL ECG - SINUS RHYTHM : Confirmed on behalf of: Amira Gallagher 19-Jun-2018 09:42:17
[2018-06-19 09:51] LABS: ARTERIAL BLOOD H2CO3 0.79 mmol/L (1.05-1.35); ARTERIAL BLOOD HCO3 27.6 mmol/L (20-24); ARTERIAL BLOOD O2 SATURATION 98.7 % (94-98); ARTERIAL BLOOD PCO2 26.4 mmHg (35-45); ARTERIAL BLOOD PO2 106.9 mmHg (80-100); ARTERIAL BLOOD TOTAL CO2 28.4 mmol/L (21-25)
[2018-06-19 09:54] LABS: ARTERIAL BLOOD FIO2 ROOM AIR
[2018-06-19 09:59] LABS: SALICYLATE 48.4 mg/dL (2.0-20.0)
[2018-06-19 10:00] LABS: ARTERIAL BLOOD PH 7.64 (7.35-7.45)
[2018-06-19 10:21] LABS: VENOUS BLOOD BASE EXCESS 6.9 mmol/L; VENOUS BLOOD HCO3 28.9 mmol/L (20-32); VENOUS BLOOD PCO2 32.2 mmHg (35-63); VENOUS BLOOD PH 7.57 (7.30-7.42)
[2018-06-19 10:27] LABS: APPEARANCE,URINE CLEAR; BILIRUBIN,URINE NEGATIVE (NEGATIVE); COLOR,URINE YELLOW; GLUCOSE, URINE NEGATIVE (NEGATIVE); KETONES,URINE TRACE mg/dL (NEGATIVE); LEUKOCYTE ESTERASE,URINE NEGATIVE (NEGATIVE); NITRITE,URINE NEGATIVE (NEGATIVE); PROTEIN,URINE NEGATIVE (NEGATIVE); URINE SPECIFIC GRAVITY 1.017; UROBILINOGEN,URINE NEGATIVE mg/dL (<2.0)
[2018-06-19 10:35] LABS: ANION GAP 8 (5-19); BLOOD UREA NITROGEN 16 mg/dL (7-20); CALCIUM 7.1 mg/dL (8.4-10.2); CARBON DIOXIDE 27 mmol/L (22-30); CHLORIDE 109 mmol/L (98-107); GLUCOSE 129 mg/dL (75-110); POTASSIUM 3.3 mmol/L (3.6-5.0); SODIUM 143.6 mmol/L (137-145)
[2018-06-19] MEDS: LOSARTAN POTASSIUM 25 MG TABLET PO SCH (10:41)
[2018-06-19] MEDS: FENTANYL CITRATE INJ/PF 100 MCG/2 ML AMPUL IV PRN (10:42)
[2018-06-19] MEDS: VENLAFAXINE HCL 37.5 MG CAP.SR.24H PO SCH (10:45)
[2018-06-19 10:47] LABS: SALICYLATE 45.6 mg/dL (2.0-20.0)
[2018-06-19] MEDS ORDERED: DEXTROSE 5%-WATER 1000 ML 1,000 ML with SODIUM BICARBONATE 150 MEQ IV PRN ×2 (11:30)
[2018-06-19 12:23] LABS: VENOUS BLOOD BASE EXCESS 5.8 mmol/L; VENOUS BLOOD HCO3 28.3 mmol/L (20-32); VENOUS BLOOD PCO2 33.4 mmHg (35-63); VENOUS BLOOD PH 7.55 (7.30-7.42)
[2018-06-19 12:32] LABS: APPEARANCE,URINE CLEAR; BILIRUBIN,URINE NEGATIVE (NEGATIVE); COLOR,URINE YELLOW; GLUCOSE, URINE NEGATIVE (NEGATIVE); KETONES,URINE NEGATIVE (NEGATIVE); LEUKOCYTE ESTERASE,URINE NEGATIVE (NEGATIVE); NITRITE,URINE NEGATIVE (NEGATIVE); PROTEIN,URINE NEGATIVE (NEGATIVE); URINE SPECIFIC GRAVITY 1.018; UROBILINOGEN,URINE NEGATIVE mg/dL (<2.0)
[2018-06-19 12:48] LABS: ANION GAP 6 (5-19); BLOOD UREA NITROGEN 17 mg/dL (7-20); CALCIUM 7.1 mg/dL (8.4-10.2); CARBON DIOXIDE 29 mmol/L (22-30); CHLORIDE 108 mmol/L (98-107); GLUCOSE 121 mg/dL (75-110); POTASSIUM 3.6 mmol/L (3.6-5.0)
[2018-06-19 13:03] LABS: SALICYLATE 41.6 mg/dL (2.0-20.0)
[2018-06-19 14:16] LABS: VENOUS BLOOD PCO2 36.2 mmHg (35-63); VENOUS BLOOD PH 7.52 (7.30-7.42)
[2018-06-19 14:34] LABS: APPEARANCE,URINE CLEAR; BILIRUBIN,URINE NEGATIVE (NEGATIVE); COLOR,URINE YELLOW; GLUCOSE, URINE NEGATIVE (NEGATIVE); KETONES,URINE NEGATIVE (NEGATIVE); LEUKOCYTE ESTERASE,URINE NEGATIVE (NEGATIVE); NITRITE,URINE NEGATIVE (NEGATIVE); PROTEIN,URINE NEGATIVE (NEGATIVE); URINE SPECIFIC GRAVITY 1.019; UROBILINOGEN,URINE NEGATIVE mg/dL (<2.0)
--- NOTE | 2018-06-19 14:36 | PDOC PROGRESS REPORT ---
Subjective Progress Note for:: 06/19/18 Subjective:: This is 57 years old female patient with past medical history of hypertension, hyperlipidemia, hypothyroidism, morbid obesity, depression and sciatica brought to his chief complaint of altered mental status. Reportedly patient was found wandering and confused. She has history of chronic sciatica for which she has been taking Goody powders which contains salicylate. Toxicology results shows markedly elevated salicylate level. Patient admitted to ICU and started on bicarb and potassium replacement. Her salicylate level is trending down. This morning ABGs done in 2 through spiritual 7.64 PCO2 of 36.4, PO2 of 106 and bicarb of 27.6. I seen patient resting in bed comfortably. She is awake alert and oriented. Reason For Visit: SALICYLATE TOXICITY Physical Exam Vital Signs: Temp Pulse Resp BP Pulse Ox 99.9 F 88 16 120/58 L 90 L 06/19/18 14:00 06/19/18 14:00 06/19/18 14:00 06/19/18 14:00 06/19/18 14:00 Intake & Output 06/18/18 06/19/18 06/20/18 06:59 06:59 06:59 Intake Total 3011 1163 Output Total 725 820 Balance 2286 343 Weight 140.3 kg General appearance: PRESENT: no acute distress Head exam: PRESENT: atraumatic Eye exam: PRESENT: conjunctiva pink Neck exam: ABSENT: carotid bruit, JVD, lymphadenopathy, thyromegaly Respiratory exam: PRESENT: clear to auscultation naz. ABSENT: rales, rhonchi, wheezes Cardiovascular exam: PRESENT: RRR. ABSENT: diastolic murmur, rubs, systolic murmur Neurological exam: PRESENT: alert, awake, oriented to time, oriented to situation Results Laboratory Results: 06/19/18 06:28 06/18/18 06/18/18 06/18/18 15:43 15:43 15:43 WBC 8.3 RBC 4.13 Hgb 12.1 Hct 35.4 L MCV 86 MCH 29.3 MCHC 34.3 RDW 17.1 H Plt Count 298 Seg Neutrophils % 82.7 H Lymphocytes % 8.3 L Monocytes % 8.3 Eosinophils % 0.1 Basophils % 0.6 Absolute Neutrophils 6.8 Absolute Lymphocytes 0.7 Absolute Monocytes 0.7 Absolute Eosinophils 0.0 Absolute Basophils 0.1 Carbonic Acid HCO3/H2CO3 Ratio ABG pH ABG pCO2 ABG pO2 ABG HCO3 ABG O2 Saturation ABG Base Excess VBG pH VBG pCO2 VBG HCO3 VBG Base Excess FiO2 Sodium 142.8 Potassium 3.4 L Chloride 111 H Carbon Dioxide 16 L Anion Gap 16 BUN 18 Creatinine 1.19 Est GFR ( Amer) 56 L Est GFR (Non-Af Amer) 46 L Glucose 122 H Calcium 8.2 L Magnesium Total Bilirubin 0.5 AST 106 H ALT 58 H Alkaline Phosphatase 118 Total Protein 6.7 Albumin 3.3 L TSH 0.78 Free T4 1.28 Urine Color Urine Appearance Urine pH Ur Specific [place] Urine Protein Urine Glucose (UA) Urine Ketones Urine Blood Urine Nitrite Ur Leukocyte Esterase Urine WBC (Auto) Urine RBC (Auto) 06/18/18 06/18/18 06/18/18 18:39 19:40 19:40 WBC RBC Hgb Hct MCV MCH MCHC RDW Plt Count Seg Neutrophils % Lymphocytes % Monocytes % Eosinophils % Basophils % Absolute Neutrophils Absolute Lymphocytes Absolute Monocytes Absolute Eosinophils Absolute Basophils Carbonic Acid 0.61 L HCO3/H2CO3 Ratio 27:1 ABG pH 7.54 H ABG pCO2 20.3 L* ABG pO2 112.4 H ABG HCO3 16.9 L ABG O2 Saturation 98.6 H ABG Base Excess -4.0 VBG pH 7.49 H VBG pCO2 25.5 L VBG HCO3 19.0 L VBG Base Excess -3.0 FiO2 ROOM AIR Sodium 142.7 Potassium 3.4 L Chloride 112 H Carbon Dioxide 18 L Anion Gap 13 BUN 18 Creatinine 1.20 Est GFR ( Amer) 56 L Est GFR (Non-Af Amer) 46 L Glucose 117 H Calcium 7.9 L Magnesium Total Bilirubin AST ALT Alkaline Phosphatase Total Protein Albumin TSH Free T4 Urine Color Urine Appearance Urine pH Ur Specific [place] Urine Protein Urine Glucose (UA) Urine Ketones Urine Blood Urine Nitrite Ur Leukocyte Esterase Urine WBC (Auto) Urine RBC (Auto) 06/18/18 06/18/18 06/18/18 20:06 21:13 22:10 WBC RBC Hgb Hct MCV MCH MCHC RDW Plt Count Seg Neutrophils % Lymphocytes % Monocytes % Eosinophils % Basophils % Absolute Neutrophils Absolute Lymphocytes Absolute Monocytes Absolute Eosinophils Absolute Basophils Carbonic Acid HCO3/H2CO3 Ratio ABG pH ABG pCO2 ABG pO2 ABG HCO3 ABG O2 Saturation ABG Base Excess VBG pH 7.50 H VBG pCO2 26.4 L VBG HCO3 20.0 VBG Base Excess -2.3 FiO2 Sodium Potassium Chloride Carbon Dioxide Anion Gap BUN Creatinine Est GFR ( Amer) Est GFR (Non-Af Amer) Glucose Calcium Magnesium Total Bilirubin AST ALT Alkaline Phosphatase Total Protein Albumin TSH Free T4 Urine Color YELLOW YELLOW Urine Appearance TURBID SLIGHTLY-CLOUDY Urine pH 5.0 5.0 Ur Specific [place] 1.012 1.008 Urine Protein NEGATIVE NEGATIVE Urine Glucose (UA) NEGATIVE NEGATIVE Urine Ketones TRACE H NEGATIVE Urine Blood LARGE H LARGE H Urine Nitrite NEGATIVE NEGATIVE Ur Leukocyte Esterase LARGE H NEGATIVE Urine WBC (Auto) 62 1 Urine RBC (Auto) 30 12 06/18/18 06/19/18 06/19/18 22:19 00:00 00:00 WBC RBC Hgb Hct MCV MCH MCHC RDW Plt Count Seg Neutrophils % Lymphocytes % Monocytes % Eosinophils % Basophils % Absolute Neutrophils Absolute Lymphocytes Absolute Monocytes Absolute Eosinophils Absolute Basophils Carbonic Acid HCO3/H2CO3 Ratio ABG pH ABG pCO2 ABG pO2 ABG HCO3 ABG O2 Saturation ABG Base Excess VBG pH VBG pCO2 VBG HCO3 VBG Base Excess FiO2 Sodium 142.5 Potassium 3.0 L* Chloride 112 H Carbon Dioxide 21 L Anion Gap 10 BUN 17 Creatinine 1.10 Est GFR ( Amer) > 60 Est GFR (Non-Af Amer) 51 L Glucose 104 Calcium 7.5 L Magnesium Total Bilirubin AST ALT Alkaline Phosphatase Total Protein Albumin TSH Free T4 Urine Color YELLOW YELLOW Urine Appearance CLEAR CLEAR Urine pH 5.0 5.0 Ur Specific [place] 1.009 1.006 Urine Protein NEGATIVE NEGATIVE Urine Glucose (UA) NEGATIVE NEGATIVE Urine Ketones NEGATIVE NEGATIVE Urine Blood MODERATE H MODERATE H Urine Nitrite NEGATIVE NEGATIVE Ur Leukocyte Esterase NEGATIVE NEGATIVE Urine WBC (Auto) 1 0 Urine RBC (Auto) 14 9 06/19/18 06/19/18 06/19/18 00:00 02:30 02:30 WBC RBC Hgb Hct MCV MCH MCHC RDW Plt Count Seg Neutrophils % Lymphocytes % Monocytes % Eosinophils % Basophils % Absolute Neutrophils Absolute Lymphocytes Absolute Monocytes Absolute Eosinophils Absolute Basophils Carbonic Acid HCO3/H2CO3 Ratio ABG pH ABG pCO2 ABG pO2 ABG HCO3 ABG O2 Saturation ABG Base Excess VBG pH 7.48 H VBG pCO2 29.8 L VBG HCO3 21.7 VBG Base Excess -0.7 FiO2 Sodium 145.1 H Potassium 3.0 L* Chloride 112 H Carbon Dioxide 22 Anion Gap 11 BUN 17 Creatinine 1.02 Est GFR ( Amer) > 60 Est GFR (Non-Af Amer) 55 L Glucose 95 Calcium 7.5 L Magnesium Total Bilirubin AST ALT Alkaline Phosphatase Total Protein Albumin TSH Free T4 Urine Color YELLOW Urine Appearance CLEAR Urine pH 5.0 Ur Specific [place] 1.009 Urine Protein NEGATIVE Urine Glucose (UA) NEGATIVE Urine Ketones NEGATIVE Urine Blood MODERATE H Urine Nitrite NEGATIVE Ur Leukocyte Esterase NEGATIVE Urine WBC (Auto) 0 Urine RBC (Auto) 8 06/19/18 06/19/18 06/19/18 02:30 04:30 04:30 WBC RBC Hgb Hct MCV MCH MCHC RDW Plt Count Seg Neutrophils % Lymphocytes % Monocytes % Eosinophils % Basophils % Absolute Neutrophils Absolute Lymphocytes Absolute Monocytes Absolute Eosinophils Absolute Basophils Carbonic Acid HCO3/H2CO3 Ratio ABG pH ABG pCO2 ABG pO2 ABG HCO3 ABG O2 Saturation ABG Base Excess VBG pH 7.49 H VBG pCO2 32.7 L VBG HCO3 24.3 VBG Base Excess 1.3 FiO2 Sodium 146.1 H Potassium 3.1 L Chloride 112 H Carbon Dioxide 24 Anion Gap 10 BUN 17 Creatinine 1.16 Est GFR ( Amer) 58 L Est GFR (Non-Af Amer) 48 L Glucose 91 Calcium 7.3 L Magnesium 2.4 H Total Bilirubin AST ALT Alkaline Phosphatase Total Protein Albumin TSH Free T4 Urine Color YELLOW Urine Appearance CLEAR Urine pH 5.0 Ur Specific [place] 1.010 Urine Protein NEGATIVE Urine Glucose (UA) NEGATIVE Urine Ketones NEGATIVE Urine Blood MODERATE H Urine Nitrite NEGATIVE Ur Leukocyte Esterase NEGATIVE Urine WBC (Auto) 0 Urine RBC (Auto) 13 06/19/18 06/19/18 06/19/18 04:30 06:28 06:28 WBC 4.4 RBC 3.46 L Hgb 10.1 L Hct 29.4 L MCV 85 MCH 29.1 MCHC 34.2 RDW 16.4 H Plt Count 244 Seg Neutrophils % 52.2 Lymphocytes % 35.4 Monocytes % 11.4 Eosinophils % 0.7 Basophils % 0.3 Absolute Neutrophils 2.3 Absolute Lymphocytes 1.6 Absolute Monocytes 0.5 Absolute Eosinophils 0.0 Absolute Basophils 0.0 Carbonic Acid HCO3/H2CO3 Ratio ABG pH ABG pCO2 ABG pO2 ABG HCO3 ABG O2 Saturation ABG Base Excess VBG pH 7.51 H VBG pCO2 31.4 L VBG HCO3 24.4 VBG Base Excess 1.9 FiO2 Sodium 145.0 Potassium 3.2 L Chloride 111 H Carbon Dioxide 26 Anion Gap 8 BUN 16 Creatinine 1.10 Est GFR ( Amer) > 60 Est GFR (Non-Af Amer) 51 L Glucose 113 H Calcium 7.2 L Magnesium Total Bilirubin AST ALT Alkaline Phosphatase Total Protein Albumin TSH Free T4 Urine Color Urine Appearance Urine pH Ur Specific [place] Urine Protein Urine Glucose (UA) Urine Ketones Urine Blood Urine Nitrite Ur Leukocyte Esterase Urine WBC (Auto) Urine RBC (Auto) 06/19/18 06/19/18 06/19/18 06:28 06:28 07:58 WBC RBC Hgb Hct MCV MCH MCHC RDW Plt Count Seg Neutrophils % Lymphocytes % Monocytes % Eosinophils % Basophils % Absolute Neutrophils Absolute Lymphocytes Absolute Monocytes Absolute Eosinophils Absolute Basophils Carbonic Acid HCO3/H2CO3 Ratio ABG pH ABG pCO2 ABG pO2 ABG HCO3 ABG O2 Saturation ABG Base Excess VBG pH 7.54 H VBG pCO2 32.6 L VBG HCO3 27.2 VBG Base Excess 4.8 FiO2 Sodium 143.7 Potassium 3.2 L Chloride 110 H Carbon Dioxide 27 Anion Gap 7 BUN 17 Creatinine 1.12 Est GFR ( Amer) > 60 Est GFR (Non-Af Amer) 50 L Glucose 120 H Calcium 7.1 L Magnesium Total Bilirubin AST ALT Alkaline Phosphatase Total Protein Albumin TSH Free T4 Urine Color YELLOW Urine Appearance CLEAR Urine pH 5.0 Ur Specific [place] 1.017 Urine Protein NEGATIVE Urine Glucose (UA) NEGATIVE Urine Ketones NEGATIVE Urine Blood MODERATE H Urine Nitrite NEGATIVE Ur Leukocyte Esterase NEGATIVE Urine WBC (Auto) 2 Urine RBC (Auto) 28 06/19/18 06/19/18 06/19/18 07:58 07:58 09:40 WBC RBC Hgb Hct MCV MCH MCHC RDW Plt Count Seg Neutrophils % Lymphocytes % Monocytes % Eosinophils % Basophils % Absolute Neutrophils Absolute Lymphocytes Absolute Monocytes Absolute Eosinophils Absolute Basophils Carbonic Acid 0.79 L HCO3/H2CO3 Ratio 34:1 ABG pH 7.64 H* ABG pCO2 26.4 L ABG pO2 106.9 H ABG HCO3 27.6 H ABG O2 Saturation 98.7 H ABG Base Excess 7.0 VBG pH 7.52 H VBG pCO2 34.5 L VBG HCO3 27.5 VBG Base Excess 4.6 FiO2 ROOM AIR Sodium Potassium Chloride Carbon Dioxide Anion Gap BUN Creatinine Est GFR ( Amer) Est GFR (Non-Af Amer) Glucose Calcium Magnesium Total Bilirubin AST ALT Alkaline Phosphatase Total Protein Albumin TSH Free T4 Urine Color YELLOW Urine Appearance CLEAR Urine pH 6.0 Ur Specific [place] 1.018 Urine Protein NEGATIVE Urine Glucose (UA) NEGATIVE Urine Ketones TRACE H Urine Blood MODERATE H Urine Nitrite NEGATIVE Ur Leukocyte Esterase NEGATIVE Urine WBC (Auto) 1 Urine RBC (Auto) 41 06/19/18 06/19/18 06/19/18 10:04 10:04 10:04 WBC RBC Hgb Hct MCV MCH MCHC RDW Plt Count Seg Neutrophils % Lymphocytes % Monocytes % Eosinophils % Basophils % Absolute Neutrophils Absolute Lymphocytes Absolute Monocytes Absolute Eosinophils Absolute Basophils Carbonic Acid HCO3/H2CO3 Ratio ABG pH ABG pCO2 ABG pO2 ABG HCO3 ABG O2 Saturation ABG Base Excess VBG pH 7.57 H VBG pCO2 32.2 L VBG HCO3 28.9 VBG Base Excess 6.9 FiO2 Sodium 143.6 Potassium 3.3 L Chloride 109 H Carbon Dioxide 27 Anion Gap 8 BUN 16 Creatinine 1.10 Est GFR ( Amer) > 60 Est GFR (Non-Af Amer) 51 L Glucose 129 H Calcium 7.1 L Magnesium Total Bilirubin AST ALT Alkaline Phosphatase Total Protein Albumin TSH Free T4 Urine Color YELLOW Urine Appearance CLEAR Urine pH 6.0 Ur Specific [place] 1.017 Urine Protein NEGATIVE Urine Glucose (UA) NEGATIVE Urine Ketones TRACE H Urine Blood MODERATE H Urine Nitrite NEGATIVE Ur Leukocyte Esterase NEGATIVE Urine WBC (Auto) 1 Urine RBC (Auto) 37 06/19/18 06/19/18 06/19/18 12:02 12:02 12:02 WBC RBC Hgb Hct MCV MCH MCHC RDW Plt Count Seg Neutrophils % Lymphocytes % Monocytes % Eosinophils % Basophils % Absolute Neutrophils Absolute Lymphocytes Absolute Monocytes Absolute Eosinophils Absolute Basophils Carbonic Acid HCO3/H2CO3 Ratio ABG pH ABG pCO2 ABG pO2 ABG HCO3 ABG O2 Saturation ABG Base Excess VBG pH 7.55 H VBG pCO2 33.4 L VBG HCO3 28.3 VBG Base Excess 5.8 FiO2 Sodium 143.0 Potassium 3.6 Chloride 108 H Carbon Dioxide 29 Anion Gap 6 BUN 17 Creatinine 1.02 Est GFR ( Amer) > 60 Est GFR (Non-Af Amer) 55 L Glucose 121 H Calcium 7.1 L Magnesium Total Bilirubin AST ALT Alkaline Phosphatase Total Protein Albumin TSH Free T4 Urine Color YELLOW Urine Appearance CLEAR Urine pH 7.0 Ur Specific [place] 1.018 Urine Protein NEGATIVE Urine Glucose (UA) NEGATIVE Urine Ketones NEGATIVE Urine Blood SMALL H Urine Nitrite NEGATIVE Ur Leukocyte Esterase NEGATIVE Urine WBC (Auto) 2 Urine RBC (Auto) 41 06/19/18 14:00 WBC RBC Hgb Hct MCV MCH MCHC RDW Plt Count Seg Neutrophils % Lymphocytes % Monocytes % Eosinophils % Basophils % Absolute Neutrophils Absolute Lymphocytes Absolute Monocytes Absolute Eosinophils Absolute Basophils Carbonic Acid HCO3/H2CO3 Ratio ABG pH ABG pCO2 ABG pO2 ABG HCO3 ABG O2 Saturation ABG Base Excess VBG pH 7.52 H VBG pCO2 36.2 VBG HCO3 29.0 VBG Base Excess 6.0 FiO2 Sodium Potassium Chloride Carbon Dioxide Anion Gap BUN Creatinine Est GFR ( Amer) Est GFR (Non-Af Amer) Glucose Calcium Magnesium Total Bilirubin AST ALT Alkaline Phosphatase Total Protein Albumin TSH Free T4 Urine Color Urine Appearance Urine pH Ur Specific [place] Urine Protein Urine Glucose (UA) Urine Ketones Urine Blood Urine Nitrite Ur Leukocyte Esterase Urine WBC (Auto) Urine RBC (Auto) 06/18/18 06/18/18 15:43 15:43 Creatine Kinase 260 H Troponin I < 0.012 NT-Pro-B Natriuret Pep 336 Impressions: Chest X-Ray 06/18/18 22:04 IMPRESSION: Tip of the central line likely in the proximal SVC versus brachiocephalic/caval junction. No pneumothorax copyright 2011 [email or web address] All Rights Reserved Assessment and Plan - Diagnosis (1) Respiratory alkalosis Is this a current diagnosis for this admission?: Yes Plan: I will taper down the rate of bicarb drip. Repeat ABG in a.m. (2) Metabolic acidosis Is this a current diagnosis for this admission?: Yes Plan: Corrected. (3) Salicylate toxicity Is this a current diagnosis for this admission?: Yes Plan: This is unintentional chronic toxicity due to taking Goody powder for chronic sciatica. We will continue the bicarb drip at the lower rate. (4) Hypokalemia Is this a current diagnosis for this admission?: Yes Plan: Resolved (5) Hypothyroidism Qualifiers: Hypothyroidism type: acquired Qualified Code(s): E03.9 - Hypothyroidism, unspecified Is this a current diagnosis for this admission?: Yes Plan: Continue Synthroid (6) Morbid obesity with BMI of 50.0-59.9, adult Is this a current diagnosis for this admission?: Yes Plan: Lifestyle modification advised. (7) Depression Is this a current diagnosis for this admission?: Yes Plan: Patient reports this she has been depressed since she lost her son due to suicide about 4 years ago. Patient needs outpatient psychiatric follow-up. (8) Lymphedema Is this a current diagnosis for this admission?: Yes Plan: Stable
[2018-06-19 14:39] LABS: ANION GAP 8 (5-19); BLOOD UREA NITROGEN 16 mg/dL (7-20); CARBON DIOXIDE 28 mmol/L (22-30); CHLORIDE 106 mmol/L (98-107); GLUCOSE 136 mg/dL (75-110); POTASSIUM 3.1 mmol/L (3.6-5.0); SODIUM 141.7 mmol/L (137-145)
[2018-06-19] MEDS: NORMAL SALINE 1000 ML 1,000 ML IV PRN ×2 (14:45→23:48)
[2018-06-19 15:08] LABS: SALICYLATE 38.5 mg/dL (2.0-20.0)
[2018-06-19 16:19] LABS: VENOUS BLOOD BASE EXCESS 5.7 mmol/L; VENOUS BLOOD HCO3 28.2 mmol/L (20-32); VENOUS BLOOD PH 7.55 (7.30-7.42)
[2018-06-19 16:32] LABS: APPEARANCE,URINE CLEAR; BILIRUBIN,URINE NEGATIVE (NEGATIVE); COLOR,URINE YELLOW; GLUCOSE, URINE NEGATIVE (NEGATIVE); KETONES,URINE NEGATIVE (NEGATIVE); LEUKOCYTE ESTERASE,URINE NEGATIVE (NEGATIVE); NITRITE,URINE NEGATIVE (NEGATIVE); PROTEIN,URINE NEGATIVE (NEGATIVE)
[2018-06-19 16:35] LABS: ANION GAP 7 (5-19); BLOOD UREA NITROGEN 17 mg/dL (7-20); CARBON DIOXIDE 28 mmol/L (22-30); CHLORIDE 107 mmol/L (98-107); GLUCOSE 96 mg/dL (75-110); POTASSIUM 3.2 mmol/L (3.6-5.0); SODIUM 141.7 mmol/L (137-145)
[2018-06-19 16:48] LABS: SALICYLATE 36.3 mg/dL (2.0-20.0)
[2018-06-19 18:25] LABS: VENOUS BLOOD BASE EXCESS 3.9 mmol/L; VENOUS BLOOD HCO3 27.7 mmol/L (20-32); VENOUS BLOOD PCO2 38.8 mmHg (35-63); VENOUS BLOOD PH 7.47 (7.30-7.42)
[2018-06-19 18:31] LABS: APPEARANCE,URINE CLEAR; BILIRUBIN,URINE NEGATIVE (NEGATIVE); COLOR,URINE YELLOW; GLUCOSE, URINE NEGATIVE (NEGATIVE); KETONES,URINE NEGATIVE (NEGATIVE); LEUKOCYTE ESTERASE,URINE NEGATIVE (NEGATIVE); NITRITE,URINE NEGATIVE (NEGATIVE); PROTEIN,URINE NEGATIVE (NEGATIVE); URINE SPECIFIC GRAVITY 1.018; UROBILINOGEN,URINE NEGATIVE mg/dL (<2.0)
[2018-06-19 19:08] LABS: ANION GAP 7 (5-19); BLOOD UREA NITROGEN 17 mg/dL (7-20); CARBON DIOXIDE 28 mmol/L (22-30); CHLORIDE 107 mmol/L (98-107); GLUCOSE 82 mg/dL (75-110); POTASSIUM 3.4 mmol/L (3.6-5.0); SODIUM 141.7 mmol/L (137-145)
[2018-06-19 19:19] LABS: CALCIUM 6.6 mg/dL (8.4-10.2); SALICYLATE 34.1 mg/dL (2.0-20.0)
[2018-06-19 23:25] LABS: ANION GAP 8 (5-19); BLOOD UREA NITROGEN 16 mg/dL (7-20); CARBON DIOXIDE 26 mmol/L (22-30); CHLORIDE 108 mmol/L (98-107); GLUCOSE 72 mg/dL (75-110); POTASSIUM 3.7 mmol/L (3.6-5.0); SODIUM 141.5 mmol/L (137-145)
[2018-06-19 23:38] LABS: CALCIUM 6.6 mg/dL (8.4-10.2)
[2018-06-20] MEDS: MINERAL OIL/PETROLATUM,WHITE CREAM 114 GM TP SCH ×5 (00:03→21:05)
[2018-06-20] MEDS ORDERED: CALCIUM GLUCONATE 1,000 MG in DEXTROSE 5%-WATER 50 ML IV ONE (00:40)
[2018-06-20] MEDS ORDERED: CALCIUM GLUCONATE 1000 MG/10 ML INJ IV ONE (00:40)
[2018-06-20] MEDS: FENTANYL CITRATE INJ/PF 100 MCG/2 ML AMPUL IV PRN ×3 (01:22→14:58)
[2018-06-20 06:03] LABS: ABSOLUTE EOSINOPHILS # (AUTO) 0.1 10^3/uL (0.0-0.6); ABSOLUTE LYMPHOCYTES (AUTO) 2.4 10^3/uL (0.5-4.7); ABSOLUTE MONOCYTES (AUTO) 0.6 10^3/uL (0.1-1.4); ABSOLUTE NEUT (AUTO) 2.2 10^3/uL (1.7-8.2); BASOPHILS % (AUTO) 0.5 % (0-2); EOSINOPHILS % (AUTO) 1.8 % (0-6); LYMPHOCYTES % (AUTO) 44.9 % (13-45); MEAN CORPUSCULAR HEMOGLOBIN 29.1 pg (27.0-33.4); MEAN CORPUSCULAR HGB CONC 33.5 g/dL (32.0-36.0); MEAN CORPUSCULAR VOLUME 87 fl (80-97); MONOCYTES % (AUTO) 10.6 % (3-13); PLATELET COUNT 246 10^3/uL (150-450); RED BLOOD COUNT 3.45 10^6/uL (3.72-5.28); RED CELL DISTRIBUTION WIDTH 17.2 % (11.5-14.0); SEGMENTED NEUTROPHILS % (AUTO) 42.2 % (42-78); TOTAL CELLS COUNTED % (AUTO) 100 %; WHITE BLOOD COUNT 5.2 10^3/uL (4.0-10.5)
[2018-06-20 06:10] LABS: APPEARANCE,URINE CLEAR; ARTERIAL BLOOD BASE EXCESS -0.4 mmol/L; ARTERIAL BLOOD H2CO3 0.89 mmol/L (1.05-1.35); ARTERIAL BLOOD O2 SATURATION 98.2 % (94-98); ARTERIAL BLOOD PCO2 29.5 mmHg (35-45); ARTERIAL BLOOD PH 7.49 (7.35-7.45); ARTERIAL BLOOD PO2 104.9 mmHg (80-100); ARTERIAL BLOOD TOTAL CO2 22.9 mmol/L (21-25); BILIRUBIN,URINE NEGATIVE (NEGATIVE); COLOR,URINE YELLOW; GLUCOSE, URINE NEGATIVE (NEGATIVE); KETONES,URINE NEGATIVE (NEGATIVE); LEUKOCYTE ESTERASE,URINE NEGATIVE (NEGATIVE); NITRITE,URINE NEGATIVE (NEGATIVE); PROTEIN,URINE NEGATIVE (NEGATIVE); URINE SPECIFIC GRAVITY 1.013; UROBILINOGEN,URINE NEGATIVE mg/dL (<2.0)
[2018-06-20] MEDS: GABAPENTIN 100 MG CAPSULE PO SCH ×3 (06:10→21:11)
[2018-06-20] MEDS: HEPARIN SOD (PORCINE) 5,000 UNIT/ML 1 ML SYRINGE SUBCUT SCH ×3 (06:10→21:11)
[2018-06-20] MEDS: PANTOPRAZOLE SODIUM 40 MG TABLET.DR PO SCH (06:10)
[2018-06-20 06:19] LABS: ANION GAP 6 (5-19); BLOOD UREA NITROGEN 15 mg/dL (7-20); CALCIUM 7.5 mg/dL (8.4-10.2); CARBON DIOXIDE 27 mmol/L (22-30); CHLORIDE 110 mmol/L (98-107); POTASSIUM 3.7 mmol/L (3.6-5.0); SODIUM 143.2 mmol/L (137-145)
[2018-06-20 06:31] LABS: ARTERIAL BLOOD FIO2 RA
[2018-06-20 06:47] LABS: GLUCOSE 67 mg/dL (75-110)
[2018-06-20 06:48] LABS: SALICYLATE 24.3 mg/dL (2.0-20.0)
[2018-06-20] MEDS: NORMAL SALINE 1000 ML 1,000 ML IV PRN ×2 (08:56→20:15)
[2018-06-20] MEDS: LOSARTAN POTASSIUM 25 MG TABLET PO SCH (09:00)
[2018-06-20] MEDS: VENLAFAXINE HCL 37.5 MG CAP.SR.24H PO SCH (09:00)
[2018-06-20] MEDS: BUSPIRONE HCL 10 MG TABLET PO SCH ×2 (09:00→21:11)
--- NOTE | 2018-06-20 16:09 | PDOC PROGRESS REPORT ---
Subjective Progress Note for:: 06/20/18 Subjective:: I seen patient resting in bed comfortably. She is awake alert and oriented. She reports that her tinnitus and hearing loss has been improving. Her blood salicylate level dropped to 24. I discontinued her bicarb drip. She is downgraded to medical floor. Reason For Visit: SALICYLATE TOXICITY Physical Exam Vital Signs: Temp Pulse Resp BP Pulse Ox 99.3 F 75 14 130/69 H 95 06/20/18 08:00 06/20/18 08:00 06/20/18 14:03 06/20/18 14:03 06/20/18 14:03 Intake & Output 06/19/18 06/20/18 06/21/18 06:59 06:59 06:59 Intake Total 3011 3093 1873 Output Total 725 1810 275 Balance 2286 1283 1598 Weight 140.3 kg 144.6 kg 144.6 kg General appearance: PRESENT: morbidly obese Eye exam: PRESENT: conjunctiva pink Neck exam: ABSENT: carotid bruit, JVD, lymphadenopathy, thyromegaly Respiratory exam: PRESENT: clear to auscultation naz. ABSENT: rales, rhonchi, wheezes Cardiovascular exam: PRESENT: RRR. ABSENT: diastolic murmur, rubs, systolic murmur GI/Abdominal exam: PRESENT: normal bowel sounds, soft. ABSENT: distended, guarding, mass, organolmegaly, rebound, tenderness Neurological exam: PRESENT: alert, awake, oriented to time, oriented to situation Results Laboratory Results: 06/20/18 05:25 06/20/18 05:25 06/19/18 06/19/18 06/19/18 16:06 16:06 16:06 WBC RBC Hgb Hct MCV MCH MCHC RDW Plt Count Seg Neutrophils % Lymphocytes % Monocytes % Eosinophils % Basophils % Absolute Neutrophils Absolute Lymphocytes Absolute Monocytes Absolute Eosinophils Absolute Basophils Carbonic Acid HCO3/H2CO3 Ratio ABG pH ABG pCO2 ABG pO2 ABG HCO3 ABG O2 Saturation ABG Base Excess VBG pH 7.55 H VBG pCO2 33.0 L VBG HCO3 28.2 VBG Base Excess 5.7 FiO2 Sodium 141.7 Potassium 3.2 L Chloride 107 Carbon Dioxide 28 Anion Gap 7 BUN 17 Creatinine 1.11 Est GFR ( Amer) > 60 Est GFR (Non-Af Amer) 50 L Glucose 96 Calcium 7.0 L* Ionized Calcium [place] Urine Color YELLOW Urine Appearance CLEAR Urine pH 6.0 Ur Specific [place] 1.020 Urine Protein NEGATIVE Urine Glucose (UA) NEGATIVE Urine Ketones NEGATIVE Urine Blood SMALL H Urine Nitrite NEGATIVE Ur Leukocyte Esterase NEGATIVE Urine WBC (Auto) 10 Urine RBC (Auto) 44 06/19/18 06/19/18 06/19/18 18:08 18:08 18:08 WBC RBC Hgb Hct MCV MCH MCHC RDW Plt Count Seg Neutrophils % Lymphocytes % Monocytes % Eosinophils % Basophils % Absolute Neutrophils Absolute Lymphocytes Absolute Monocytes Absolute Eosinophils Absolute Basophils Carbonic Acid HCO3/H2CO3 Ratio ABG pH ABG pCO2 ABG pO2 ABG HCO3 ABG O2 Saturation ABG Base Excess VBG pH 7.47 H VBG pCO2 38.8 VBG HCO3 27.7 VBG Base Excess 3.9 FiO2 Sodium 141.7 Potassium 3.4 L Chloride 107 Carbon Dioxide 28 Anion Gap 7 BUN 17 Creatinine 1.00 Est GFR ( Amer) > 60 Est GFR (Non-Af Amer) 57 L Glucose 82 Calcium 6.6 L* Ionized Calcium [place] Urine Color YELLOW Urine Appearance CLEAR Urine pH 7.0 Ur Specific [place] 1.018 Urine Protein NEGATIVE Urine Glucose (UA) NEGATIVE Urine Ketones NEGATIVE Urine Blood SMALL H Urine Nitrite NEGATIVE Ur Leukocyte Esterase NEGATIVE Urine WBC (Auto) 1 Urine RBC (Auto) 35 06/19/18 06/19/18 06/19/18 19:48 21:21 23:22 WBC RBC Hgb Hct MCV MCH MCHC RDW Plt Count Seg Neutrophils % Lymphocytes % Monocytes % Eosinophils % Basophils % Absolute Neutrophils Absolute Lymphocytes Absolute Monocytes Absolute Eosinophils Absolute Basophils Carbonic Acid HCO3/H2CO3 Ratio ABG pH ABG pCO2 ABG pO2 ABG HCO3 ABG O2 Saturation ABG Base Excess VBG pH VBG pCO2 VBG HCO3 VBG Base Excess FiO2 Sodium 141.5 Potassium 3.7 3.5 L Chloride 108 H Carbon Dioxide 26 Anion Gap 8 BUN 16 Creatinine 1.07 Est GFR ( Amer) > 60 Est GFR (Non-Af Amer) 52 L Glucose 72 L Calcium 6.6 L* Ionized Calcium [place] 0.96 L Urine Color Urine Appearance Urine pH Ur Specific [place] Urine Protein Urine Glucose (UA) Urine Ketones Urine Blood Urine Nitrite Ur Leukocyte Esterase Urine WBC (Auto) Urine RBC (Auto) 06/20/18 06/20/18 06/20/18 05:25 05:25 05:25 WBC 5.2 RBC 3.45 L Hgb 10.0 L Hct 30.0 L MCV 87 MCH 29.1 MCHC 33.5 RDW 17.2 H Plt Count 246 Seg Neutrophils % 42.2 Lymphocytes % 44.9 Monocytes % 10.6 Eosinophils % 1.8 Basophils % 0.5 Absolute Neutrophils 2.2 Absolute Lymphocytes 2.4 Absolute Monocytes 0.6 Absolute Eosinophils 0.1 Absolute Basophils 0.0 Carbonic Acid 0.89 L HCO3/H2CO3 Ratio 24:1 ABG pH 7.49 H ABG pCO2 29.5 L ABG pO2 104.9 H ABG HCO3 22.0 ABG O2 Saturation 98.2 H ABG Base Excess -0.4 VBG pH VBG pCO2 VBG HCO3 VBG Base Excess FiO2 RA Sodium 143.2 Potassium 3.7 Chloride 110 H Carbon Dioxide 27 Anion Gap 6 BUN 15 Creatinine 1.08 Est GFR ( Amer) > 60 Est GFR (Non-Af Amer) 52 L Glucose 67 L Calcium 7.5 L Ionized Calcium [place] Urine Color Urine Appearance Urine pH Ur Specific [place] Urine Protein Urine Glucose (UA) Urine Ketones Urine Blood Urine Nitrite Ur Leukocyte Esterase Urine WBC (Auto) Urine RBC (Auto) 06/20/18 05:25 WBC RBC Hgb Hct MCV MCH MCHC RDW Plt Count Seg Neutrophils % Lymphocytes % Monocytes % Eosinophils % Basophils % Absolute Neutrophils Absolute Lymphocytes Absolute Monocytes Absolute Eosinophils Absolute Basophils Carbonic Acid HCO3/H2CO3 Ratio ABG pH ABG pCO2 ABG pO2 ABG HCO3 ABG O2 Saturation ABG Base Excess VBG pH VBG pCO2 VBG HCO3 VBG Base Excess FiO2 Sodium Potassium Chloride Carbon Dioxide Anion Gap BUN Creatinine Est GFR ( Amer) Est GFR (Non-Af Amer) Glucose Calcium Ionized Calcium [place] Urine Color YELLOW Urine Appearance CLEAR Urine pH 6.0 Ur Specific [place] 1.013 Urine Protein NEGATIVE Urine Glucose (UA) NEGATIVE Urine Ketones NEGATIVE Urine Blood MODERATE H Urine Nitrite NEGATIVE Ur Leukocyte Esterase NEGATIVE Urine WBC (Auto) 1 Urine RBC (Auto) 17 06/18/18 06/18/18 15:43 15:43 Creatine Kinase 260 H Troponin I < 0.012 NT-Pro-B Natriuret Pep 336 Impressions: Chest X-Ray 06/18/18 22:04 IMPRESSION: Tip of the central line likely in the proximal SVC versus brachiocephalic/caval junction. No pneumothorax copyright 2010 [employer]- All Rights Reserved Assessment and Plan - Diagnosis (1) Respiratory alkalosis Is this a current diagnosis for this admission?: Yes Plan: Improving (2) Metabolic acidosis Is this a current diagnosis for this admission?: Yes Plan: Resolving (3) Salicylate toxicity Is this a current diagnosis for this admission?: Yes Plan: Resolving (4) Hypokalemia Is this a current diagnosis for this admission?: Yes (5) Hypothyroidism Qualifiers: Hypothyroidism type: acquired Qualified Code(s): E03.9 - Hypothyroidism, unspecified Is this a current diagnosis for this admission?: Yes Plan: Continue Synthroid (6) Morbid obesity with BMI of 50.0-59.9, adult Is this a current diagnosis for this admission?: Yes Plan: Lifestyle modification advised. (7) Depression Is this a current diagnosis for this admission?: Yes Plan: Patient reports this she has been depressed since she lost her son due to suicide about 4 years ago. Patient needs outpatient psychiatric follow-up. (8) Lymphedema Is this a current diagnosis for this admission?: Yes Plan: Stable
[2018-06-21] MEDS: HEPARIN SOD (PORCINE) 5,000 UNIT/ML 1 ML SYRINGE SUBCUT SCH ×3 (05:04→22:08)
[2018-06-21] MEDS: GABAPENTIN 100 MG CAPSULE PO SCH ×3 (05:04→22:07)
[2018-06-21] MEDS: NORMAL SALINE 1000 ML 1,000 ML IV PRN ×2 (05:04→17:46)
[2018-06-21 05:54] LABS: ABSOLUTE EOSINOPHILS # (AUTO) 0.1 10^3/uL (0.0-0.6); ABSOLUTE LYMPHOCYTES (AUTO) 1.7 10^3/uL (0.5-4.7); ABSOLUTE MONOCYTES (AUTO) 0.5 10^3/uL (0.1-1.4); ABSOLUTE NEUT (AUTO) 2.4 10^3/uL (1.7-8.2); BASOPHILS % (AUTO) 0.4 % (0-2); HEMATOCRIT 30.2 % (36.0-47.0); HEMOGLOBIN 10.2 g/dL (12.0-15.5); LYMPHOCYTES % (AUTO) 36.6 % (13-45); MEAN CORPUSCULAR HEMOGLOBIN 29.4 pg (27.0-33.4); MEAN CORPUSCULAR HGB CONC 33.7 g/dL (32.0-36.0); MEAN CORPUSCULAR VOLUME 87 fl (80-97); MONOCYTES % (AUTO) 10.7 % (3-13); PLATELET COUNT 231 10^3/uL (150-450); RED BLOOD COUNT 3.46 10^6/uL (3.72-5.28); RED CELL DISTRIBUTION WIDTH 17.2 % (11.5-14.0); SEGMENTED NEUTROPHILS % (AUTO) 50.3 % (42-78); TOTAL CELLS COUNTED % (AUTO) 100 %; WHITE BLOOD COUNT 4.7 10^3/uL (4.0-10.5)
[2018-06-21] MEDS: FENTANYL CITRATE INJ/PF 100 MCG/2 ML AMPUL IV PRN ×3 (09:15→22:24)
[2018-06-21] MEDS: BUSPIRONE HCL 10 MG TABLET PO SCH ×2 (09:16→22:07)
[2018-06-21] MEDS: LOSARTAN POTASSIUM 25 MG TABLET PO SCH (09:16)
[2018-06-21] MEDS: VENLAFAXINE HCL 37.5 MG CAP.SR.24H PO SCH (09:16)
[2018-06-21] MEDS: MINERAL OIL/PETROLATUM,WHITE CREAM 114 GM TP SCH ×3 (09:16→17:22)
--- NOTE | 2018-06-21 15:15 | PDOC PROGRESS REPORT ---
Subjective Progress Note for:: 06/21/18 Subjective:: Patient seen resting in bed comfortably. She is not in pain or distress. She is eating well and she tolerates well. No nausea vomiting or fever. Reason For Visit: SALICYLATE TOXICITY Physical Exam Vital Signs: Temp Pulse Resp BP Pulse Ox 98.8 F 77 16 109/39 L 98 06/21/18 11:38 06/21/18 11:38 06/21/18 11:38 06/21/18 11:38 06/21/18 11:38 Intake & Output 06/20/18 06/21/18 06/22/18 06:59 06:59 06:59 Intake Total 3093 4235 266 Output Total 1810 935 300 Balance 1283 3300 -34 Weight 144.6 kg 148.4 kg General appearance: PRESENT: morbidly obese Head exam: PRESENT: atraumatic, normocephalic Eye exam: PRESENT: conjunctiva pink Neck exam: ABSENT: carotid bruit, JVD, lymphadenopathy, thyromegaly Respiratory exam: PRESENT: clear to auscultation naz. ABSENT: rales, rhonchi, wheezes Cardiovascular exam: PRESENT: RRR. ABSENT: diastolic murmur, rubs, systolic murmur GI/Abdominal exam: PRESENT: normal bowel sounds, soft. ABSENT: distended, guarding, mass, organolmegaly, rebound, tenderness Neurological exam: PRESENT: alert, altered Results Laboratory Results: 06/21/18 05:14 06/20/18 05:25 06/21/18 05:14 WBC 4.7 RBC 3.46 L Hgb 10.2 L Hct 30.2 L MCV 87 MCH 29.4 MCHC 33.7 RDW 17.2 H Plt Count 231 Seg Neutrophils % 50.3 Lymphocytes % 36.6 Monocytes % 10.7 Eosinophils % 2.0 Basophils % 0.4 Absolute Neutrophils 2.4 Absolute Lymphocytes 1.7 Absolute Monocytes 0.5 Absolute Eosinophils 0.1 Absolute Basophils 0.0 06/18/18 06/18/18 15:43 15:43 Creatine Kinase 260 H Troponin I < 0.012 NT-Pro-B Natriuret Pep 336 Impressions: Chest X-Ray 06/18/18 22:04 IMPRESSION: Tip of the central line likely in the proximal SVC versus brachiocephalic/caval junction. No pneumothorax copyright 2011 [employer]- All Rights Reserved Assessment and Plan - Diagnosis (1) Respiratory alkalosis Is this a current diagnosis for this admission?: Yes Plan: Improving (2) Metabolic acidosis Is this a current diagnosis for this admission?: Yes Plan: Resolving (3) Salicylate toxicity Is this a current diagnosis for this admission?: Yes Plan: Resolving (4) Hypokalemia Is this a current diagnosis for this admission?: Yes Plan: Resolved (5) Hypothyroidism Qualifiers: Hypothyroidism type: acquired Qualified Code(s): E03.9 - Hypothyroidism, unspecified Is this a current diagnosis for this admission?: Yes Plan: Continue Synthroid (6) Morbid obesity with BMI of 50.0-59.9, adult Is this a current diagnosis for this admission?: Yes Plan: Lifestyle modification advised. (7) Depression Is this a current diagnosis for this admission?: Yes Plan: Patient reports this she has been depressed since she lost her son due to suicide about 4 years ago. Patient needs outpatient psychiatric follow-up. (8) Lymphedema Is this a current diagnosis for this admission?: Yes
[2018-06-22] MEDS: FENTANYL CITRATE INJ/PF 100 MCG/2 ML AMPUL IV PRN ×3 (04:49→23:05)
[2018-06-22] MEDS: HEPARIN SOD (PORCINE) 5,000 UNIT/ML 1 ML SYRINGE SUBCUT SCH ×3 (05:03→22:42)
[2018-06-22] MEDS: GABAPENTIN 100 MG CAPSULE PO SCH ×3 (05:03→22:42)
[2018-06-22] MEDS: NORMAL SALINE 1000 ML 1,000 ML IV PRN ×2 (05:22→16:12)
[2018-06-22] MEDS: MINERAL OIL/PETROLATUM,WHITE CREAM 114 GM TP SCH ×5 (05:59→22:41)
[2018-06-22] MEDS: LOSARTAN POTASSIUM 25 MG TABLET PO SCH (11:05)
[2018-06-22] MEDS: VENLAFAXINE HCL 37.5 MG CAP.SR.24H PO SCH (11:06)
[2018-06-22] MEDS: BUSPIRONE HCL 10 MG TABLET PO SCH ×2 (11:06→22:41)
--- NOTE | 2018-06-22 14:35 | PDOC PROGRESS REPORT ---
Subjective Progress Note for:: 06/22/18 Subjective:: I seen patient resting in bed comfortably. She complains of sciatica pain on her right gluteal area. Otherwise patient is afebrile no nausea vomiting. She is eating well and tolerates well her hearing has much improved. Since patient is deconditioned and debilitated she qualifies for less than 30 days rehab placement. Patient has been working with a physical therapist who recommended correction facility placement. Reason For Visit: SALICYLATE TOXICITY Physical Exam Vital Signs: Temp Pulse Resp BP Pulse Ox 98.8 F 76 16 115/59 L 98 06/22/18 08:29 06/22/18 12:20 06/22/18 12:20 06/22/18 08:29 06/22/18 12:20 Intake & Output 06/21/18 06/22/18 06/23/18 06:59 06:59 06:59 Intake Total 4235 2835 360 Output Total 935 301 800 Balance 3300 2534 -440 Weight 148.4 kg 132.7 kg General appearance: PRESENT: no acute distress Eye exam: PRESENT: conjunctiva pink Neck exam: ABSENT: carotid bruit, JVD, lymphadenopathy, thyromegaly Respiratory exam: PRESENT: clear to auscultation naz. ABSENT: rales, rhonchi, wheezes Cardiovascular exam: PRESENT: RRR. ABSENT: diastolic murmur, rubs, systolic murmur GI/Abdominal exam: PRESENT: normal bowel sounds, soft. ABSENT: distended, gu arding, mass, organolmegaly, rebound, tenderness Neurological exam: PRESENT: alert, awake, oriented to time, oriented to situation Results Laboratory Results: 06/21/18 05:14 06/20/18 05:25 06/18/18 06/18/18 15:43 15:43 Creatine Kinase 260 H Troponin I < 0.012 NT-Pro-B Natriuret Pep 336 Impressions: Chest X-Ray 06/18/18 22:04 IMPRESSION: Tip of the central line likely in the proximal SVC versus brachiocephalic/caval junction. No pneumothorax copyright 2010 [employer]- All Rights Reserved Assessment and Plan - Diagnosis (1) Debility and deconditioning Is this a current diagnosis for this admission?: Yes Plan: Patient qualifies for less than 30 days rehab placement. (2) Respiratory alkalosis Is this a current diagnosis for this admission?: Yes (3) Metabolic acidosis Is this a current diagnosis for this admission?: Yes Plan: Resolving (4) Salicylate toxicity Is this a current diagnosis for this admission?: Yes Plan: Resolving (5) Hypokalemia Is this a current diagnosis for this admission?: Yes Plan: Resolved (6) Hypothyroidism Qualifiers: Hypothyroidism type: acquired Qualified Code(s): E03.9 - Hypothyroidism, unspecified Is this a current diagnosis for this admission?: Yes Plan: Continue Synthroid (7) Morbid obesity with BMI of 50.0-59.9, adult Is this a current diagnosis for this admission?: Yes Plan: Lifestyle modification advised. (8) Depression Is this a current diagnosis for this admission?: Yes Plan: Patient reports this she has been depressed since she lost her son due to suicide about 4 years ago. Patient needs outpatient psychiatric follow-up. (9) Lymphedema Is this a current diagnosis for this admission?: Yes Plan: Stable
[2018-06-22] MEDS: HALOPERIDOL LACTATE INJ 5 MG/1 ML VIAL IV PRN (23:12)
[2018-06-22] MEDS ORDERED: HALOPERIDOL LACTATE INJ 5 MG/1 ML VIAL ONE (23:21)
[2018-06-22] MEDS ORDERED: HALOPERIDOL LACTATE INJ 5 MG/1 ML VIAL IV ONE (23:45)
[2018-06-22] MEDS: ACETAMINOPHEN 325 MG TABLET PO PRN (23:51)
[2018-06-23] MEDS: GABAPENTIN 100 MG CAPSULE PO SCH ×3 (06:36→22:58)
[2018-06-23] MEDS: HEPARIN SOD (PORCINE) 5,000 UNIT/ML 1 ML SYRINGE SUBCUT SCH ×3 (06:37→22:58)
[2018-06-23] MEDS: VENLAFAXINE HCL 37.5 MG CAP.SR.24H PO SCH (10:31)
[2018-06-23] MEDS: BUSPIRONE HCL 10 MG TABLET PO SCH ×2 (10:31→22:58)
[2018-06-23] MEDS: LOSARTAN POTASSIUM 25 MG TABLET PO SCH (10:31)
[2018-06-23] MEDS: MINERAL OIL/PETROLATUM,WHITE CREAM 114 GM TP SCH ×4 (10:32→22:58)
[2018-06-23] MEDS: NORMAL SALINE 1000 ML 1,000 ML IV PRN ×2 (10:33→22:57)
[2018-06-23] MEDS: FENTANYL CITRATE INJ/PF 100 MCG/2 ML AMPUL IV PRN ×2 (12:58→17:46)
--- NOTE | 2018-06-23 14:33 | PDOC PROGRESS REPORT ---
Subjective Progress Note for:: 06/23/18 Subjective:: Patient seen resting in bed comfortably she is awake alert oriented. She complains of pain on her right hip when she participate with physical therapy. Patient has been started on fentanyl patch and oxycodone. Reason For Visit: SALICYLATE TOXICITY Physical Exam Vital Signs: Temp Pulse Resp BP Pulse Ox 98.4 F 72 16 119/58 L 98 06/23/18 11:58 06/23/18 11:58 06/23/18 11:58 06/23/18 11:58 06/23/18 11:58 Intake & Output 06/22/18 06/23/18 06/24/18 06:59 06:59 06:59 Intake Total 2835 2830 Output Total 301 2470 Balance 2534 360 Weight 132.7 kg 133.5 kg General appearance: PRESENT: morbidly obese Respiratory exam: PRESENT: clear to auscultation naz. ABSENT: rales, rhonchi, w heezes Cardiovascular exam: PRESENT: RRR. ABSENT: diastolic murmur, rubs, systolic murmur Neurological exam: PRESENT: alert, awake, oriented to time, oriented to situation Results Laboratory Results: 06/21/18 05:14 06/20/18 05:25 06/18/18 06/18/18 15:43 15:43 Creatine Kinase 260 H Troponin I < 0.012 NT-Pro-B Natriuret Pep 336 Impressions: Chest X-Ray 06/18/18 22:04 IMPRESSION: Tip of the central line likely in the proximal SVC versus brachiocephalic/caval junction. No pneumothorax copyright 2011 [employer]- All Rights Reserved Assessment and Plan - Diagnosis (1) Debility and deconditioning Is this a current diagnosis for this admission?: Yes Plan: Patient qualifies for less than 30 days rehab placement. (2) Respiratory alkalosis Is this a current diagnosis for this admission?: Yes Plan: Improving (3) Metabolic acidosis Is this a current diagnosis for this admission?: Yes Plan: Resolving (4) Salicylate toxicity Is this a current diagnosis for this admission?: Yes Plan: Resolving (5) Hypokalemia Is this a current diagnosis for this admission?: Yes Plan: Resolved (6) Hypothyroidism Qualifiers: Hypothyroidism type: acquired Qualified Code(s): E03.9 - Hypothyroidism, unspecified Is this a current diagnosis for this admission?: Yes Plan: Continue Synthroid (7) Morbid obesity with BMI of 50.0-59.9, adult Is this a current diagnosis for this admission?: Yes Plan: Lifestyle modification advised. (8) Depression Is this a current diagnosis for this admission?: Yes Plan: Patient reports this she has been depressed since she lost her son due to suicide about 4 years ago. Patient needs outpatient psychiatric follow-up. (9) Lymphedema Is this a current diagnosis for this admission?: Yes Plan: Stable
[2018-06-23] MEDS ORDERED: FENTANYL 75 MCG/HR PATCH.TD72 TD SCH (15:00)
[2018-06-23] MEDS: OXYCODONE HCL IR 5 MG TABLET PO PRN (17:46)
[2018-06-23] MEDS ORDERED: FENTANYL 50 MCG/HR PATCH.TD72 TD SCH (22:00)
[2018-06-24] MEDS: OXYCODONE HCL IR 5 MG TABLET PO PRN ×3 (00:24→21:51)
[2018-06-24] MEDS: FENTANYL CITRATE INJ/PF 100 MCG/2 ML AMPUL IV PRN ×2 (00:25→04:54)
[2018-06-24] MEDS: GABAPENTIN 100 MG CAPSULE PO SCH ×3 (05:01→21:51)
[2018-06-24] MEDS: HEPARIN SOD (PORCINE) 5,000 UNIT/ML 1 ML SYRINGE SUBCUT SCH ×3 (05:01→21:53)
[2018-06-24] MEDS: KETOROLAC TROMETHAMINE INJ/PF 30 MG/1 ML SDV IV PRN ×2 (05:34→20:46)
[2018-06-24] MEDS: HALOPERIDOL LACTATE INJ 5 MG/1 ML VIAL IV PRN ×2 (05:34→20:53)
[2018-06-24 06:40] LABS: ARTERIAL BLOOD BASE EXCESS 2.6 mmol/L; ARTERIAL BLOOD H2CO3 1.28 mmol/L (1.05-1.35); ARTERIAL BLOOD HCO3 27.3 mmol/L (20-24); ARTERIAL BLOOD O2 SATURATION 96.4 % (94-98); ARTERIAL BLOOD PCO2 42.5 mmHg (35-45); ARTERIAL BLOOD PH 7.43 (7.35-7.45); ARTERIAL BLOOD PO2 83.2 mmHg (80-100); ARTERIAL BLOOD TOTAL CO2 28.6 mmol/L (21-25)
[2018-06-24 06:50] LABS: ARTERIAL BLOOD FIO2 21%
[2018-06-24] MEDS: VENLAFAXINE HCL 37.5 MG CAP.SR.24H PO SCH (09:44)
[2018-06-24] MEDS: LOSARTAN POTASSIUM 25 MG TABLET PO SCH (09:44)
[2018-06-24] MEDS: MINERAL OIL/PETROLATUM,WHITE CREAM 114 GM TP SCH ×4 (09:45→21:53)
[2018-06-24] MEDS: BUSPIRONE HCL 10 MG TABLET PO SCH ×2 (09:45→21:51)
[2018-06-24] MEDS: NORMAL SALINE 1000 ML 1,000 ML IV PRN ×2 (13:44→18:37)
--- NOTE | 2018-06-24 14:32 | PDOC PROGRESS REPORT ---
Subjective Progress Note for:: 06/24/18 Subjective:: No acute event overnight. Patient reports this her pain well controlled with fentanyl patch and as needed Percocet. Reason For Visit: SALICYLATE TOXICITY Physical Exam Vital Signs: Temp Pulse Resp BP Pulse Ox 98.3 F 84 16 128/62 H 90 L 06/24/18 12:00 06/24/18 12:00 06/24/18 12:00 06/24/18 12:00 06/24/18 12:00 Intake & Output 06/23/18 06/24/18 06/25/18 06:59 06:59 06:59 Intake Total 2830 2662 1000 Output Total 2470 870 Balance 360 1792 1000 Weight 133.5 kg 133.4 kg General appearance: PRESENT: no acute distress Respiratory exam: PRESENT: clear to auscultation naz. ABSENT: rales, rhonchi, wheezes Cardiovascular exam: PRESENT: RRR. ABSENT: diastolic murmur, rubs, systolic murmur Neurological exam: PRESENT: alert, awake, oriented to time, oriented to situation Results Laboratory Results: 06/21/18 05:14 06/20/18 05:25 06/24/18 06:25 Carbonic Acid 1.28 HCO3/H2CO3 Ratio 21:1 ABG pH 7.43 ABG pCO2 42.5 ABG pO2 83.2 ABG HCO3 27.3 H ABG O2 Saturation 96.4 ABG Base Excess 2.6 FiO2 21% 06/18/18 06/18/18 15:43 15:43 Creatine Kinase 260 H Troponin I < 0.012 NT-Pro-B Natriuret Pep 336 Impressions: Chest X-Ray 06/18/18 22:04 IMPRESSION: Tip of the central line likely in the proximal SVC versus brachiocephalic/caval junction. No pneumothorax copyright 2010 [employer]- All Rights Reserved Assessment and Plan - Diagnosis (1) Debility and deconditioning Is this a current diagnosis for this admission?: Yes Plan: Patient qualifies for less than 30 days rehab placement. (2) Respiratory alkalosis Is this a current diagnosis for this admission?: Yes Plan: Improving (3) Metabolic acidosis Is this a current diagnosis for this admission?: Yes Plan: Resolving (4) Salicylate toxicity Is this a current diagnosis for this admission?: Yes Plan: Resolving (5) Hypokalemia Is this a current diagnosis for this admission?: Yes Plan: Resolved (6) Hypothyroidism Qualifiers: Hypothyroidism type: acquired Qualified Code(s): E03.9 - Hypothyroidism, unspecified Is this a current diagnosis for this admission?: Yes Plan: Continue Synthroid (7) Morbid obesity with BMI of 50.0-59.9, adult Is this a current diagnosis for this admission?: Yes Plan: Lifestyle modification advised. (8) Depression Is this a current diagnosis for this admission?: Yes Plan: Patient reports this she has been depressed since she lost her son due to suicide about 4 years ago. Patient needs outpatient psychiatric follow-up. (9) Lymphedema Is this a current diagnosis for this admission?: Yes Plan: Stable
[2018-06-25] MEDS: FENTANYL CITRATE INJ/PF 100 MCG/2 ML AMPUL IV PRN ×3 (01:36→16:53)
[2018-06-25] MEDS: HALOPERIDOL LACTATE INJ 5 MG/1 ML VIAL IV PRN (02:56)
[2018-06-25] MEDS: NORMAL SALINE 1000 ML 1,000 ML IV PRN ×2 (06:12→16:55)
[2018-06-25] MEDS: OXYCODONE HCL IR 5 MG TABLET PO PRN ×3 (06:14→18:00)
[2018-06-25] MEDS: GABAPENTIN 100 MG CAPSULE PO SCH ×3 (06:15→22:19)
[2018-06-25] MEDS: HEPARIN SOD (PORCINE) 5,000 UNIT/ML 1 ML SYRINGE SUBCUT SCH ×3 (06:15→22:21)
[2018-06-25] MEDS: BUSPIRONE HCL 10 MG TABLET PO SCH ×2 (09:54→22:19)
[2018-06-25] MEDS: VENLAFAXINE HCL 37.5 MG CAP.SR.24H PO SCH (09:54)
[2018-06-25] MEDS: LOSARTAN POTASSIUM 25 MG TABLET PO SCH (09:55)
[2018-06-25] MEDS: MINERAL OIL/PETROLATUM,WHITE CREAM 114 GM TP SCH ×4 (09:56→22:19)
[2018-06-25] MEDS ORDERED: FENTANYL 50 MCG/HR PATCH.TD72 TD SCH (10:00)
--- NOTE | 2018-06-25 10:01 | PDOC PROGRESS REPORT ---
Subjective Progress Note for:: 06/25/18 Subjective:: Patient seen lying in bed supine. She reports this her pain is controlled and she rates it at 1-2 out of 10. Reason For Visit: SALICYLATE TOXICITY Physical Exam Vital Signs: Temp Pulse Resp BP Pulse Ox 99.6 F 87 17 127/66 H 95 06/25/18 07:41 06/25/18 07:41 06/25/18 07:41 06/25/18 07:41 06/25/18 07:41 Intake & Output 06/24/18 06/25/18 06/26/18 06:59 06:59 06:59 Intake Total 2662 3742 Output Total 870 950 Balance 1792 2792 Weight 133.4 kg 133.5 kg General appearance: PRESENT: morbidly obese Neck exam: ABSENT: carotid bruit, JVD, lymphadenopathy, thyromegaly Respiratory exam: PRESENT: clear to auscultation naz. ABSENT: rales, rhonchi, wheezes Cardiovascular exam: PRESENT: RRR. ABSENT: diastolic murmur, rubs, systolic murmur GI/Abdominal exam: PRESENT: normal bowel sounds, soft. ABSENT: distended, guarding, mass, organolmegaly, rebound, tenderness Neurological exam: PRESENT: alert, awake, oriented to time, oriented to situation Results Laboratory Results: 06/21/18 05:14 06/20/18 05:25 06/18/18 06/18/18 15:43 15:43 Creatine Kinase 260 H Troponin I < 0.012 NT-Pro-B Natriuret Pep 336 Impressions: Chest X-Ray 06/18/18 22:04 IMPRESSION: Tip of the central line likely in the proximal SVC versus brachiocephalic/caval junction. No pneumothorax copyright 2010 [employer]- All Rights Reserved Assessment and Plan - Diagnosis (1) Debility and deconditioning Is this a current diagnosis for this admission?: Yes Plan: Patient qualifies for less than 30 days rehab placement. (2) Respiratory alkalosis Is this a current diagnosis for this admission?: Yes Plan: Improving (3) Metabolic acidosis Is this a current diagnosis for this admission?: Yes Plan: Resolving (4) Salicylate toxicity Is this a current diagnosis for this admission?: Yes Plan: Resolving (5) Hypokalemia Is this a current diagnosis for this admission?: Yes Plan: Resolved (6) Hypothyroidism Qualifiers: Hypothyroidism type: acquired Qualified Code(s): E03.9 - Hypothyroidism, unspecified Is this a current diagnosis for this admission?: Yes Plan: Continue Synthroid (7) Morbid obesity with BMI of 50.0-59.9, adult Is this a current diagnosis for this admission?: Yes Plan: Lifestyle modification advised. (8) Depression Is this a current diagnosis for this admission?: Yes Plan: Patient reports this she has been depressed since she lost her son due to suicide about 4 years ago. Patient needs outpatient psychiatric follow-up. (9) Lymphedema Is this a current diagnosis for this admission?: Yes Plan: Stable
[2018-06-25] MEDS ORDERED: FENTANYL 75 MCG/HR PATCH.TD72 TD SCH (11:00)
[2018-06-25] MEDS: ACETAMINOPHEN 325 MG TABLET PO PRN (18:50)
[2018-06-25] MEDS: KETOROLAC TROMETHAMINE INJ/PF 30 MG/1 ML SDV IV PRN (19:57)
[2018-06-25] MEDS: FENTANYL 75 MCG/HR PATCH.TD72 TD SCH (22:19)
[2018-06-26] MEDS: OXYCODONE HCL IR 5 MG TABLET PO PRN ×3 (00:03→22:49)
[2018-06-26] MEDS: ACETAMINOPHEN 325 MG TABLET PO PRN ×2 (02:36→16:39)
[2018-06-26] MEDS: KETOROLAC TROMETHAMINE INJ/PF 30 MG/1 ML SDV IV PRN ×2 (02:36→19:31)
[2018-06-26] MEDS: NORMAL SALINE 1000 ML 1,000 ML IV PRN (02:39)
[2018-06-26] MEDS: HEPARIN SOD (PORCINE) 5,000 UNIT/ML 1 ML SYRINGE SUBCUT SCH ×3 (06:33→23:46)
[2018-06-26] MEDS: GABAPENTIN 100 MG CAPSULE PO SCH ×3 (06:33→22:49)
[2018-06-26] MEDS: LOSARTAN POTASSIUM 25 MG TABLET PO SCH (09:21)
[2018-06-26] MEDS: BUSPIRONE HCL 10 MG TABLET PO SCH ×2 (09:21→22:49)
[2018-06-26] MEDS: VENLAFAXINE HCL 37.5 MG CAP.SR.24H PO SCH (09:21)
[2018-06-26] MEDS: MINERAL OIL/PETROLATUM,WHITE CREAM 114 GM TP SCH ×4 (09:22→22:50)
--- NOTE | 2018-06-26 13:46 | PDOC PROGRESS REPORT ---
Subjective Subjective:: This is 57 years old female patient with past medical history of hypertension, hyperlipidemia, hypothyroidism, morbid obesity, depression and sciatica brought to his chief complaint of altered mental status. Reportedly patient was found wandering and confused. She has history of chronic sciatica for which she has been taking Goody powders which contains salicylate. Toxicology results shows markedly elevated salicylate level. Patient admitted to ICU and started on bicarb and potassium replacement. Her salicylate level is trending down. Her salicylate level gradually tapered down to 40. At this point her bicarb drip discontinued and later patient downgraded to medical floor. Currently patient is out of metabolic acidosis. Her tinnitus and decreased hearing has improved markedly. This patient is debilitated and deconditioned this she qualifies for less than 30 days Reason For Visit: SALICYLATE TOXICITY Physical Exam Vital Signs: Temp Pulse Resp BP Pulse Ox 100.6 F H 85 20 145/73 H 95 06/26/18 11:20 06/26/18 11:20 06/26/18 11:20 06/26/18 11:20 06/26/18 11:20 Intake & Output 06/25/18 06/26/18 06/27/18 06:59 06:59 06:59 Intake Total 3742 2353 0 Output Total 950 2300 150 Balance 2792 53 -150 Weight 133.5 kg 134.2 kg General appearance: PRESENT: no acute distress Eye exam: PRESENT: conjunctiva pink Neck exam: ABSENT: carotid bruit, JVD, lymphadenopathy, thyromegaly Respiratory exam: PRESENT: clear to auscultation naz. ABSENT: rales, rhonchi, wheezes Cardiovascular exam: PRESENT: RRR. ABSENT: diastolic murmur, rubs, systolic murmur GI/Abdominal exam: PRESENT: normal bowel sounds, soft. ABSENT: distended, guarding, mass, organolmegaly, rebound, tenderness Neurological exam: PRESENT: alert, awake, oriented to time, oriented to situation Results Laboratory Results: 06/21/18 05:14 06/20/18 05:25 06/18/18 06/18/18 15:43 15:43 Creatine Kinase 260 H Troponin I < 0.012 NT-Pro-B Natriuret Pep 336 Impressions: Chest X-Ray 06/18/18 22:04 IMPRESSION: Tip of the central line likely in the proximal SVC versus brachiocephalic/caval junction. No pneumothorax copyright 2010 [employer]- All Rights Reserved Assessment and Plan - Diagnosis (1) Debility and deconditioning Is this a current diagnosis for this admission?: Yes Plan: Patient qualifies for less than 30 days rehab placement. (2) Respiratory alkalosis Is this a current diagnosis for this admission?: Yes Plan: Improving (3) Metabolic acidosis Is this a current diagnosis for this admission?: Yes Plan: Resolving (4) Salicylate toxicity Is this a current diagnosis for this admission?: Yes Plan: Resolving (5) Hypokalemia Is this a current diagnosis for this admission?: Yes Plan: Resolved (6) Hypothyroidism Qualifiers: Hypothyroidism type: acquired Qualified Code(s): E03.9 - Hypothyroidism, unspecified Is this a current diagnosis for this admission?: Yes Plan: Continue Synthroid (7) Morbid obesity with BMI of 50.0-59.9, adult Is this a current diagnosis for this admission?: Yes Plan: Lifestyle modification advised. (8) Depression Is this a current diagnosis for this admission?: Yes Plan: Patient reports this she has been depressed since she lost her son due to suicide about 4 years ago. Patient needs outpatient psychiatric follow-up. (9) Lymphedema Is this a current diagnosis for this admission?: Yes Plan: Stable
[2018-06-27] MEDS: HEPARIN SOD (PORCINE) 5,000 UNIT/ML 1 ML SYRINGE SUBCUT SCH ×3 (06:37→22:13)
[2018-06-27] MEDS: GABAPENTIN 100 MG CAPSULE PO SCH ×3 (06:37→22:13)
[2018-06-27] MEDS: ACETAMINOPHEN 325 MG TABLET PO PRN ×2 (08:19→22:14)
[2018-06-27] MEDS: NORMAL SALINE 1000 ML 1,000 ML IV PRN ×2 (08:22→17:41)
[2018-06-27] MEDS: KETOROLAC TROMETHAMINE INJ/PF 30 MG/1 ML SDV IV PRN (08:26)
[2018-06-27] MEDS: BUSPIRONE HCL 10 MG TABLET PO SCH ×2 (10:21→22:13)
[2018-06-27] MEDS: LOSARTAN POTASSIUM 25 MG TABLET PO SCH (10:21)
[2018-06-27] MEDS: VENLAFAXINE HCL 37.5 MG CAP.SR.24H PO SCH (10:21)
[2018-06-27] MEDS: MINERAL OIL/PETROLATUM,WHITE CREAM 114 GM TP SCH ×4 (11:35→22:13)
[2018-06-27 15:20] LABS: AMORPHOUS SEDIMENT,URINE TRACE /HPF; APPEARANCE,URINE TURBID; BILIRUBIN,URINE NEGATIVE (NEGATIVE); COLOR,URINE AMBER; GLUCOSE, URINE NEGATIVE (NEGATIVE); KETONES,URINE NEGATIVE (NEGATIVE); LEUKOCYTE ESTERASE,URINE LARGE (NEGATIVE); NITRITE,URINE NEGATIVE (NEGATIVE); PROTEIN,URINE 100 mg/dL (NEGATIVE); UROBILINOGEN,URINE NEGATIVE mg/dL (<2.0)
--- NOTE | 2018-06-27 16:42 | PDOC PROGRESS REPORT ---
Subjective Progress Note for:: 06/27/18 Subjective:: No adverse events overnight. No new complaints. Vital signs been stable. Eating and drinking without difficulty. She says that she has some pain when she works with physical therapy but that she was able to sit up on the edge of the bed for the first time recently. Reason For Visit: SALICYLATE TOXICITY Physical Exam Vital Signs: Temp Pulse Resp BP Pulse Ox 98.7 F 81 16 104/51 L 97 06/27/18 15:10 06/27/18 15:10 06/27/18 15:10 06/27/18 15:10 06/27/18 15:10 Intake & Output 06/26/18 06/27/18 06/28/18 06:59 06:59 06:59 Intake Total 2353 1780 120 Output Total 2300 750 400 Balance 53 1030 -280 Weight 134.2 kg 132.8 kg General appearance: PRESENT: no acute distress, cooperative, disheveled, morbidly obese Respiratory exam: PRESENT: clear to auscultation naz, symmetrical, unlabored. ABSENT: accessory muscle use, crackles, prolonged expiratory phas, rhonchi, tachypnea, wheezes Cardiovascular exam: PRESENT: RRR, +S1, +S2 Pulses: PRESENT: normal carotid pulses Vascular exam: PRESENT: normal capillary refill GI/Abdominal exam: PRESENT: normal bowel sounds, soft. ABSENT: distended, guarding, rebound, tenderness Extremities exam: ABSENT: clubbing, pedal edema Musculoskeletal exam: PRESENT: normal inspection. ABSENT: deformity Neurological exam: PRESENT: alert, awake, oriented to person, oriented to place, oriented to time, oriented to situation Psychiatric exam: PRESENT: appropriate affect, normal mood Skin exam: PRESENT: dry, warm Results Laboratory Results: 06/21/18 05:14 06/20/18 05:25 06/27/18 14:45 Urine Color ROBERT Urine Appearance TURBID Urine pH 9.0 Ur Specific [place] 1.010 Urine Protein 100 H Urine Glucose (UA) NEGATIVE Urine Ketones NEGATIVE Urine Blood LARGE H Urine Nitrite NEGATIVE Ur Leukocyte Esterase LARGE H Urine WBC (Auto) >182 Urine RBC (Auto) >182 06/18/18 06/18/18 15:43 15:43 Creatine Kinase 260 H Troponin I < 0.012 NT-Pro-B Natriuret Pep 336 Impressions: Chest X-Ray 06/18/18 22:04 IMPRESSION: Tip of the central line likely in the proximal SVC versus brachiocephalic/caval junction. No pneumothorax copyright 2011 [employer]- All Rights Reserved Assessment and Plan - Diagnosis (1) Salicylate toxicity Is this a current diagnosis for this admission?: Yes Plan: Resolved (2) Debility and deconditioning Is this a current diagnosis for this admission?: Yes Plan: She will be getting physical therapy. Currently awaiting insurance authorization for SNF placement. (3) Morbid obesity with BMI of 40.0-44.9, adult Is this a current diagnosis for this admission?: Yes Plan: Strongly encouraged lifestyle modification - Time Time Spent with patient: 15-24 minutes
[2018-06-27] MEDS: OXYCODONE HCL IR 5 MG TABLET PO PRN (22:13)
[2018-06-28] MEDS: OXYCODONE HCL IR 5 MG TABLET PO PRN ×2 (04:16→18:49)
[2018-06-28] MEDS: NORMAL SALINE 1000 ML 1,000 ML IV PRN ×3 (04:17→22:38)
[2018-06-28] MEDS: HEPARIN SOD (PORCINE) 5,000 UNIT/ML 1 ML SYRINGE SUBCUT SCH ×3 (05:21→22:37)
[2018-06-28] MEDS: KETOROLAC TROMETHAMINE INJ/PF 30 MG/1 ML SDV IV PRN (05:21)
[2018-06-28] MEDS: GABAPENTIN 100 MG CAPSULE PO SCH ×3 (05:21→22:37)
[2018-06-28 06:57] LABS: ABSOLUTE EOSINOPHILS # (AUTO) 0.1 10^3/uL (0.0-0.6); ABSOLUTE LYMPHOCYTES (AUTO) 1.4 10^3/uL (0.5-4.7); ABSOLUTE MONOCYTES (AUTO) 0.7 10^3/uL (0.1-1.4); ABSOLUTE NEUT (AUTO) 5.9 10^3/uL (1.7-8.2); BASOPHILS % (AUTO) 0.5 % (0-2); EOSINOPHILS % (AUTO) 1.2 % (0-6); HEMATOCRIT 32.2 % (36.0-47.0); HEMOGLOBIN 10.7 g/dL (12.0-15.5); LYMPHOCYTES % (AUTO) 17.1 % (13-45); MEAN CORPUSCULAR HEMOGLOBIN 28.9 pg (27.0-33.4); MEAN CORPUSCULAR HGB CONC 33.3 g/dL (32.0-36.0); MEAN CORPUSCULAR VOLUME 87 fl (80-97); MONOCYTES % (AUTO) 9.1 % (3-13); PLATELET COUNT 193 10^3/uL (150-450); RED BLOOD COUNT 3.71 10^6/uL (3.72-5.28); RED CELL DISTRIBUTION WIDTH 16.6 % (11.5-14.0); SEGMENTED NEUTROPHILS % (AUTO) 72.1 % (42-78); TOTAL CELLS COUNTED % (AUTO) 100 %; WHITE BLOOD COUNT 8.2 10^3/uL (4.0-10.5)
[2018-06-28 07:16] LABS: ALANINE AMINOTRANSFERASE 28 U/L (9-52); ALBUMIN 2.6 g/dL (3.5-5.0); ALKALINE PHOSPHATASE 74 U/L (38-126); ANION GAP 7 (5-19); ASPARTATE AMINO TRANSFERASE 42 U/L (14-36); BILIRUBIN,DIRECT 0.3 mg/dL (0.0-0.4); BILIRUBIN,TOTAL 0.6 mg/dL (0.2-1.3); BLOOD UREA NITROGEN 14 mg/dL (7-20); CALCIUM 8.9 mg/dL (8.4-10.2); CARBON DIOXIDE 27 mmol/L (22-30); CHLORIDE 108 mmol/L (98-107); GLUCOSE 92 mg/dL (75-110); POTASSIUM 3.9 mmol/L (3.6-5.0); SODIUM 141.8 mmol/L (137-145); TOTAL PROTEIN 5.6 g/dL (6.3-8.2)
[2018-06-28] MEDS: BUSPIRONE HCL 10 MG TABLET PO SCH ×2 (09:44→22:36)
[2018-06-28] MEDS: ACETAMINOPHEN 325 MG TABLET PO PRN ×2 (09:44→22:37)
[2018-06-28] MEDS: LOSARTAN POTASSIUM 25 MG TABLET PO SCH (09:44)
[2018-06-28] MEDS: VENLAFAXINE HCL 37.5 MG CAP.SR.24H PO SCH (09:44)
[2018-06-28] MEDS: MINERAL OIL/PETROLATUM,WHITE CREAM 114 GM TP SCH ×4 (09:45→22:37)
--- NOTE | 2018-06-28 17:54 | PDOC PROGRESS REPORT ---
Subjective Progress Note for:: 06/28/18 Subjective:: No adverse events overnight. No new complaints. Vital signs been stable. She always looks comfortable whenever I come into the room, but she also then begins to perseverate on her pain and that is why she cannot do as much with physical therapy. She cannot localize her pain, saying that she "hurts all over." She does not want to be turned in bed, saying that she is comfortable laying flat on her back. Reason For Visit: SALICYLATE TOXICITY Physical Exam Vital Signs: Temp Pulse Resp BP Pulse Ox 98.3 F 70 16 135/94 H 97 06/28/18 15:44 06/28/18 15:44 06/28/18 15:44 06/28/18 15:44 06/28/18 15:44 Intake & Output 06/27/18 06/28/18 06/29/18 06:59 06:59 06:59 Intake Total 1780 2592 923 Output Total 750 3325 Balance 1030 -733 923 Weight 132.8 kg 130.1 kg General appearance: PRESENT: no acute distress, cooperative, disheveled, morbidly obese Respiratory exam: PRESENT: clear to auscultation naz, symmetrical, unlabored. ABSENT: accessory muscle use, crackles, prolonged expiratory phas, rhonchi, tachypnea, wheezes Cardiovascular exam: PRESENT: RRR, +S1, +S2 Pulses: PRESENT: normal carotid pulses Vascular exam: PRESENT: normal capillary refill GI/Abdominal exam: PRESENT: normal bowel sounds, soft. ABSENT: distended, guarding, rebound, tenderness Extremities exam: ABSENT: clubbing, pedal edema Musculoskeletal exam: PRESENT: normal inspection. ABSENT: deformity Neurological exam: PRESENT: alert, awake, oriented to person, oriented to place, oriented to time, oriented to situation Psychiatric exam: PRESENT: appropriate affect, normal mood Skin exam: PRESENT: dry, warm Results Laboratory Results: 06/28/18 06:16 06/28/18 06:16 06/28/18 06/28/18 06:16 06:16 WBC 8.2 RBC 3.71 L Hgb 10.7 L Hct 32.2 L MCV 87 MCH 28.9 MCHC 33.3 RDW 16.6 H Plt Count 193 Seg Neutrophils % 72.1 Lymphocytes % 17.1 Monocytes % 9.1 Eosinophils % 1.2 Basophils % 0.5 Absolute Neutrophils 5.9 Absolute Lymphocytes 1.4 Absolute Monocytes 0.7 Absolute Eosinophils 0.1 Absolute Basophils 0.0 Sodium 141.8 Potassium 3.9 Chloride 108 H Carbon Dioxide 27 Anion Gap 7 BUN 14 Creatinine 0.67 Est GFR ( Amer) > 60 Est GFR (Non-Af Amer) > 60 Glucose 92 Calcium 8.9 Total Bilirubin 0.6 AST 42 H ALT 28 Alkaline Phosphatase 74 Total Protein 5.6 L Albumin 2.6 L 06/18/18 06/18/18 15:43 15:43 Creatine Kinase 260 H Troponin I < 0.012 NT-Pro-B Natriuret Pep 336 Impressions: Chest X-Ray 06/18/18 22:04 IMPRESSION: Tip of the central line likely in the proximal SVC versus brachiocephalic/caval junction. No pneumothorax copyright 2011 [employer]- All Rights Reserved Assessment and Plan - Diagnosis (1) Salicylate toxicity Is this a current diagnosis for this admission?: Yes Plan: Resolved. Her last check level 1 week ago was nearly normal and she has not had any salicylates during that time. (2) Debility and deconditioning Is this a current diagnosis for this admission?: Yes Plan: She will continue getting physical therapy while here. Currently awaiting insurance authorization for SNF placement. I am told that this is likely to happen tomorrow. (3) Morbid obesity with BMI of 40.0-44.9, adult Is this a current diagnosis for this admission?: Yes Plan: Strongly encouraged lifestyle modification, mainly focusing on dietary intervention and increasing her physical activity capability. - Time Time Spent with patient: 15-24 minutes
[2018-06-28] MEDS: FENTANYL 75 MCG/HR PATCH.TD72 TD SCH (22:36)
[2018-06-29] MEDS: OXYCODONE HCL IR 5 MG TABLET PO PRN ×3 (01:17→17:56)
[2018-06-29] MEDS: HEPARIN SOD (PORCINE) 5,000 UNIT/ML 1 ML SYRINGE SUBCUT SCH ×2 (05:05→13:00)
[2018-06-29] MEDS: ACETAMINOPHEN 325 MG TABLET PO PRN ×3 (05:07→19:55)
[2018-06-29] MEDS: GABAPENTIN 100 MG CAPSULE PO SCH ×2 (05:07→13:00)
[2018-06-29] MEDS: BUSPIRONE HCL 10 MG TABLET PO SCH (10:21)
[2018-06-29] MEDS: VENLAFAXINE HCL 37.5 MG CAP.SR.24H PO SCH (10:21)
[2018-06-29] MEDS: NORMAL SALINE 1000 ML 1,000 ML IV PRN (10:22)
[2018-06-29] MEDS: LOSARTAN POTASSIUM 25 MG TABLET PO SCH (10:22)
[2018-06-29] MEDS: MINERAL OIL/PETROLATUM,WHITE CREAM 114 GM TP SCH ×3 (10:23→19:50)
[2018-06-29 12:50] VITALS: BP 147/65
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
[2018-06-29] MEDS ORDERED: LORAZEPAM 1 MG TABLET ONE (20:15)
[2018-06-29] MEDS ORDERED: LORAZEPAM 1 MG TABLET PO ONE (20:30)
== END 2018-06-29 20:25 | DRG 918 ==
LOC: ER 15:01 → EH 17:40 → ICU 20:13 → 4S 06-21 11:26
PROVIDERS: ADMIT Hospitalist; ATTEND Hospitalist
PROC: 02HV33Z Insertion of Infusion Device into Superior Vena Cava, Percutaneous Approach (ICD-10-PCS; principal; 2018-06-18)
PROC: B548ZZA Ultrasonography of Superior Vena Cava, Guidance (ICD-10-PCS; 2018-06-18)
PROC: 3E0F73Z Introduction of Anti-inflammatory into Respiratory Tract, Via Natural or Artificial Opening (ICD-10-PCS; 2018-06-21)
DX: T39.091A Poisoning by salicylates, accidental (unintentional), initial encounter (principal); E87.2 Acidosis; E87.3 Alkalosis; Z68.41 Body mass index [BMI] 40.0-44.9, adult; Y92.9 Unspecified place or not applicable; E66.01 Morbid (severe) obesity due to excess calories; E78.5 Hyperlipidemia, unspecified; I11.0 Hypertensive heart disease with heart failure; E03.9 Hypothyroidism, unspecified; F32.9 Major depressive disorder, single episode, unspecified; I87.2 Venous insufficiency (chronic) (peripheral); E87.6 Hypokalemia; I10 Essential (primary) hypertension; M54.32 Sciatica, left side; M54.31 Sciatica, right side; I87.8 Other specified disorders of veins; Z60.2 Problems related to living alone; Z83.3 Family history of diabetes mellitus; Z82.49 Family history of ischemic heart disease and other diseases of the circulatory system
CPT/HCPCS: 36415; 36600; 71045; 80048; 80053; 80307; 81001; 82040; 82330; 82550; 82803; 83735; 83880; 84132; 84439; 84443; 84484; 85025; 93005; 93010; 99291; A9270-GY; C1751; J0610; J1630; J1644; J1885; J3010; J3480; J3490; J7030; J7060; J7120

== ENCOUNTER 2018-07-29 14:16 | Inpatient (IN) | payer OTHER ==
[~2018-07-29 14:16] MED LIST: GLYCOPYRROLATE 1 MG/5 ML VIAL ONE; NEOSTIGMINE METHYLSULFATE 10 MG/10 ML VIAL ONE; ROCURONIUM BROMIDE INJ 50 MG/5 ML VIAL IV ONE
[2018-07-29 15:34] LABS: INTERNATIONAL RATION (INR) 1.07; PROTHROMBIN TIME 14.4 SEC (11.4-15.4)
[2018-07-29 15:37] LABS: HEMATOCRIT 32.3 % (36.0-47.0); HEMOGLOBIN 10.7 g/dL (12.0-15.5); MEAN CORPUSCULAR HEMOGLOBIN 28.4 pg (27.0-33.4); MEAN CORPUSCULAR VOLUME 86 fl (80-97); PLATELET COUNT 491 10^3/uL (150-450); RED BLOOD COUNT 3.75 10^6/uL (3.72-5.28); RED CELL DISTRIBUTION WIDTH 18.7 % (11.5-14.0); WHITE BLOOD COUNT 28.6 10^3/uL (4.0-10.5)
[2018-07-29 15:40] LABS: ALANINE AMINOTRANSFERASE 8 U/L (9-52); ALBUMIN 3.4 g/dL (3.5-5.0); ALKALINE PHOSPHATASE 297 U/L (38-126); ANION GAP 14 (5-19); ASPARTATE AMINO TRANSFERASE 75 U/L (14-36); BILIRUBIN,DIRECT 0.9 mg/dL (0.0-0.4); BILIRUBIN,TOTAL 1.3 mg/dL (0.2-1.3); BLOOD UREA NITROGEN 37 mg/dL (7-20); CARBON DIOXIDE 22 mmol/L (22-30); CHLORIDE 96 mmol/L (98-107); GLUCOSE 110 mg/dL (75-110); POTASSIUM 5.2 mmol/L (3.6-5.0); SODIUM 132.1 mmol/L (137-145); TOTAL PROTEIN 8.5 g/dL (6.3-8.2)
[2018-07-29 15:42] LABS: ACETAMINOPHEN < 10 ug/mL (10-30); SALICYLATE < 1.0 mg/dL (2.0-20.0)
[2018-07-29 15:46] LABS: CALCIUM 12.9 mg/dL (8.4-10.2)
[2018-07-29 15:56] LABS: ABSOLUTE LYMPHOCYTES# (MANUAL) 5.7 10^3/uL (0.5-4.7); BASOPHILS % (MANUAL) 0 % (0-2); EOSINOPHILS % (MANUAL) 1 % (0-6); LYMPHOCYTES % (MANUAL) 20 % (13-45); MONOCYTES % (MANUAL) 7 % (3-13); SEGMENTED NEUTROPHILS % (MAN) 72 % (42-78); TOTAL CELLS COUNTED 100
[2018-07-29 15:57] LABS: ANISOCYTOSIS 2+; PLATELET COMMENT ADEQUATE; POLYCHROMASIA 1+; TOXIC GRANULATION 2+
[2018-07-29] MEDS ORDERED: VANCOMYCIN HCL INJ 1000 MG VIAL IV ONE (16:01)
[2018-07-29] MEDS ORDERED: PIPERACILLIN/TAZOBACTAM 3.375 GM VIAL IV ONE (16:01)
[2018-07-29] MEDS: NORMAL SALINE 1000 ML 1,000 ML IV PRN ×3 (16:07→21:45)
--- NOTE | 2018-07-29 16:09 | RADIOLOGY REPORT (SQ) ---
EXAM DESCRIPTION: CHEST SINGLE VIEW COMPLETED DATE/TIME: 07/29/2018 3:58 pm REASON FOR STUDY: altered mental status COMPARISON: 06/18/2018 EXAM PARAMETERS: NUMBER OF VIEWS: One view. TECHNIQUE: Single frontal radiographic view of the chest acquired. RADIATION DOSE: NA LIMITATIONS: None. FINDINGS: LUNGS AND PLEURA: No opacities, masses or pneumothorax. No pleural effusion. MEDIASTINUM AND HILAR STRUCTURES: No masses. Contour normal. HEART AND VASCULAR STRUCTURES: Heart normal in size. Normal vasculature. BONES: No acute findings. HARDWARE: None in the chest. OTHER: No other significant finding. IMPRESSION: NO ACUTE RADIOGRAPHIC FINDING IN THE CHEST. TECHNICAL DOCUMENTATION: JOB ID: [id number] [employer]- All Rights Reserved Reading location - IP/workstation name: [email or web address]
--- NOTE | 2018-07-29 16:12 | RADIOLOGY REPORT (SQ) ---
EXAM DESCRIPTION: FOOT BILATERAL 3 VIEWS COMPLETED DATE/TIME: 07/29/2018 3:58 pm REASON FOR STUDY: ulcerations over lateral feet COMPARISON: None. NUMBER OF VIEWS: Four views TECHNIQUE: AP, lateral, oblique and Noriega radiographic images acquired of the right and left foot. LIMITATIONS: Suboptimal patient positioning. FINDINGS: MINERALIZATION: Normal. BONES: There is a minimally displaced comminuted fracture of the base of the proximal phalanx of the right 5th digit with possible intra-articular extension. No additional fracture is seen. Mild bilat eral 1st MTP joint space narrowing with dorsal osteophytes. Dorsal is osseous overgrowth of the mid feet. No erosions of the left foot. Possible small erosions of the posterior calcaneus seen on the Noriega view. JOINTS: No effusions. SOFT TISSUES: Soft tissue defect overlying the posterior right calcaneus. Soft tissue irregularity w ith localized foci of gas overlying the plantar surface of the proximal 5th metatarsal. Bilateral di ffuse soft tissue swelling. No dissecting subcutaneous gas. No radiopaque foreign body. OTHER: No other significant finding. IMPRESSION: 1. Suboptimal exam due to patient positioning. Age indeterminate minimally displaced fracture of the proximal phalanx of the right 5th digit. 2. Possible osseous erosions of the posterior right calcaneus underlying the patient's known soft tis malachi ulcer concerning for active osteitis. 3. Soft tissue ulcer overlying the proximal left 5th metatarsal without definite radiographic finding s to suggest active osteitis. TECHNICAL DOCUMENTATION: JOB ID: [id number] [employer]- All Rights Reserved Reading location - IP/workstation name: [email or web address]
[2018-07-29] MEDS ORDERED: NORMAL SALINE 1000 ML 1,000 ML IV ONE (16:20)
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
--- NOTE | 2018-07-29 16:32 | ER Document Report ---
ED General - General Stated Complaint: POSSIBLE SEPSIS Time Seen by Provider: 07/29/18 15:12 TRAVEL OUTSIDE OF THE [place] IN LAST 30 DAYS: No - HPI Notes: Patient is a 57-year-old female brought to the emergency department for evalu ation. She was recently hospitalized, sent to a rehab facility, but demanded to be discharged. She states that since then she is been living in her van. She is been unable to walk. She admits she has been urinating and soiling on herself, unable to move out of it. She comes in to the emergency department for evaluation. On initial arrival, per nursing she was extremely disheveled, with maggots in all of her wounds, on bilateral feet and particularly her left buttock. At the time of my examination she has been cleaned, wounds have been cleaned to the best of our ability here in the ED. The patient has severe sciatica, has had chronic difficulty with sensation to bilateral lower extrem ities. She states that unless we stretch her leg, "aggravating her sciatica", she really is not having significant pain. She has been trying to keep herself nourished with Ensure drinks. No known fevers. - Related Data Allergies/Adverse Reactions: No Known Drug Allergies Allergy (Verified 06/19/18 04:03) Past Medical History - General Information source: Patient - Social History Smoking Status: Never Smoker Family History: Reviewed & Not Pertinent - Past Medical History Cardiac Medical History: Reports: Hx Hypercholesterolemia, Hx Hypertension Endocrine Medical History: Reports: Hx Hypothyroidism Renal/ Medical History: Denies: Hx Peritoneal Dialysis Musculoskeletal Medical History: Reports Other - Sciatica Psychiatric Medical History: Reports: Hx Depression Past Surgical History: Reports: Hx Herniorrhaphy, Hx Orthopedic Surgery - Right thumb Review of Systems - Review of Systems Constitutional: See HPI EENT: No symptoms reported Cardiovascular: No symptoms reported Respiratory: No symptoms reported Gastrointestinal: No symptoms reported Genitourinary: No symptoms reported Musculoskeletal: See HPI Skin: See HPI Neurological/Psychological: No symptoms reported Physical Exam - Vital signs Vitals: Temp Pulse Resp BP Pulse Ox 98.8 F 133 H 22 H 137/83 H 97 07/29/18 15:00 07/29/18 15:00 07/29/18 15:00 07/29/18 15:00 07/29/18 15:00 Notes: Initial vital signs reveal a temp of 98.3, blood pressure 114/67, heart rate 137, 97% on room air - Notes Notes: This is a morbidly obese 57-year-old female who appears her stated age in no acute distress. Head is normocephalic and atraumatic. Pupils are equal round, reactive to light. Oral mucosa is moist. Heart is tachycardic with normal S1- S2. Lungs are clear to oscillation bilaterally. Abdomen is obese, soft, nontender. Lower extremities reveals chronic skin changes and lymphedema. She has significant skin breakdown with necrotic and gangrenous appearing tissue to the lateral aspects of both feet. I believe I can visualize the calcaneus on the right. She has a further extensive wound over her left buttock, approximately 20 cm long by 4 cm wide and 6 to 8 cm deep. She has maggots in all wounds. Patient is awake and alert, has severe pain on any sort of movement of the lower extremities. Moves bilateral upper extremity spontaneously. Sensation is intact to the upper extremities, markedly diminished to lower. Course - Re-evaluation Re-evalutation: 07/29/18 16:36 Patient presents to the emergency department for evaluation. Her wounds were thoroughly cleansed here. She was placed on a front desk monitor. Laboratory investigations were obtained, as well as images of her chest and bilateral feet. Foot x-ray shows most likely signs of osteomyelitis. Laboratory investigations reveal a marked leukocytosis, elevated lactic. She does have severe sepsis. She is medicated here with Zosyn and vancomycin. She is given IV fluids. I consulted Dr. Valle, who asked that she have a Sheest catheter placed, kept n.p.o., and he will take her to the OR. I spoke with Dr. Soriano, he will admit the patient for further care. - Vital Signs Vital signs: Temp Pulse Resp BP Pulse Ox 98.6 F 133 H 24 H 128/83 H 100 07/29/18 17:01 07/29/18 15:00 07/29/18 19:01 07/29/18 19:01 07/29/18 19:01 - Laboratory Result Diagrams: 07/29/18 13:50 07/29/18 13:50 Laboratory results interpreted by me: 07/29/18 07/29/18 07/29/18 13:50 13:50 13:50 WBC 28.6 H Hgb 10.7 L Hct 32.3 L RDW 18.7 H Plt Count 491 H Abs Neuts (Manual) 20.6 H Abs Lymphs (Manual) 5.7 H Abs Monocytes (Manual) 2.0 H ESR 116 H VBG pH VBG pCO2 Sodium 132.1 L Potassium 5.2 H Chloride 96 L BUN 37 H Est GFR (Non-Af Amer) 58 L Lactic Acid Calcium 12.9 H* Direct Bilirubin 0.9 H AST 75 H ALT 8 L Alkaline Phosphatase 297 H C-Reactive Protein Total Protein 8.5 H Albumin 3.4 L TSH Urine Blood Ur Leukocyte Esterase Salicylates < 1.0 L Acetaminophen < 10 L 07/29/18 07/29/18 07/29/18 13:50 13:50 15:30 WBC Hgb Hct RDW Plt Count Abs Neuts (Manual) Abs Lymphs (Manual) Abs Monocytes (Manual) ESR VBG pH VBG pCO2 Sodium Potassium Chloride BUN Est GFR (Non-Af Amer) Lactic Acid 4.2 H Calcium Direct Bilirubin AST ALT Alkaline Phosphatase C-Reactive Protein 70.6 H Total Protein Albumin TSH 6.16 H Urine Blood Ur Leukocyte Esterase Salicylates Acetaminophen 07/29/18 07/29/18 16:22 16:22 WBC Hgb Hct RDW Plt Count Abs Neuts (Manual) Abs Lymphs (Manual) Abs Monocytes (Manual) ESR VBG pH 7.51 H VBG pCO2 32.6 L Sodium Potassium Chloride BUN Est GFR (Non-Af Amer) Lactic Acid Calcium Direct Bilirubin AST ALT Alkaline Phosphatase C-Reactive Protein Total Protein Albumin TSH Urine Blood MODERATE H Ur Leukocyte Esterase LARGE H Salicylates Acetaminophen - Diagnostic Test Radiology reviewed: Reports reviewed Radiology results interpreted by me: 07/29/18 16:37 Chest X-Ray 07/29/18 15:16 IMPRESSION: NO ACUTE RADIOGRAPHIC FINDING IN THE CHEST. Foot X-Ray 07/29/18 15:30 IMPRESSION: 1. Suboptimal exam due to patient positioning. Age indeterminate minimally displaced fracture of the proximal phalanx of the right 5th digit. 2. Possible osseous erosions of the posterior right calcaneus underlying the patient's known soft tissue ulcer concerning for active osteitis. 3. Soft tissue ulcer overlying the proximal left 5th metatarsal without definite radiographic findings to suggest active osteitis. Discharge - Discharge Clinical Impression: Acute osteomyelitis of right calcaneus, Osteomyelitis of fifth toe of left foot, Severe sepsis Decubitus ulcer of left buttock Qualifiers: Pressure injury stage: stage 4 Qualified Code(s): L89.324 - Pressure ulcer of left buttock, stage 4 Condition: Stable Disposition: ADMITTED INPATIENT Admitting Provider: Christie (Hospitalist) Unit Admitted: [facility]
[2018-07-29 16:48] LABS: VENOUS BLOOD HCO3 25.4 mmol/L (20-32); VENOUS BLOOD PCO2 32.6 mmHg (35-63); VENOUS BLOOD PH 7.51 (7.30-7.42)
[2018-07-29 16:55] LABS: APPEARANCE,URINE CLOUDY; BILIRUBIN,URINE NEGATIVE (NEGATIVE); COLOR,URINE AMBER; GLUCOSE, URINE NEGATIVE (NEGATIVE); KETONES,URINE NEGATIVE (NEGATIVE); LEUKOCYTE ESTERASE,URINE LARGE (NEGATIVE); NITRITE,URINE NEGATIVE (NEGATIVE); PROTEIN,URINE NEGATIVE (NEGATIVE); URINE SPECIFIC GRAVITY 1.011; UROBILINOGEN,URINE NEGATIVE mg/dL (<2.0)
[2018-07-29] MEDS ORDERED: MORPHINE SULFATE 10 MG/ML INJ IV PRN ×2 (17:08→20:19)
[2018-07-29] MEDS ORDERED: PROMETHAZINE HCL 25 MG TABLET PO PRN (17:12)
[2018-07-29] MEDS ORDERED: ACETAMINOPHEN 325 MG TABLET PO PRN (17:12)
[2018-07-29] MEDS ORDERED: TEMAZEPAM 7.5 MG CAPSULE PO PRN (17:12)
[2018-07-29] MEDS ORDERED: ONDANSETRON HCL INJ/PF 4 MG/2 ML SDV IV PRN (17:12)
[2018-07-29] MEDS ORDERED: IPRATROPIUM/ALBUTEROL 0.5-2.5 MG/3 ML AMPUL NEB PRN (17:12)
[2018-07-29] MEDS ORDERED: VANCOMYCIN HCL 0 MG in DEXTROSE 5%-WATER 250 ML IV NR (17:15)
[2018-07-29] MEDS ORDERED: FOLIC ACID/VITAMIN B COMP W-C CAPSULE PO ONE (17:30)
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
--- NOTE | 2018-07-29 17:45 | EKG REPORT ---
SEVERITY:- ABNORMAL ECG - SINUS TACHYCARDIA 119/MIN. PROBABLE INFERIOR INFARCT, OLD : Confirmed by: Celestine Hale MD 29-Jul-2018 17:44:16
[2018-07-29] MEDS ORDERED: MIDAZOLAM 2 MG/2 ML INJ ONE (19:19)
[2018-07-29] MEDS ORDERED: FENTANYL CITRATE INJ/PF 250 MCG/5 ML AMPULE ONE (19:19)
[2018-07-29] MEDS ORDERED: PROPOFOL INJ 200 MG/20 ML VIAL IV ONE (19:20)
[2018-07-29 19:32] LABS: URINE AMPHETAMINES SCREEN NEGATIVE; URINE BARBITURATES SCREEN NEGATIVE; URINE BENZODIAZEPINES SCREEN NEGATIVE; URINE COCAINE SCREEN NEGATIVE; URINE MARIJUANA (THC) SCREEN NEGATIVE; URINE METHADONE SCREEN NEGATIVE; URINE PHENCYCLIDINE SCREEN NEGATIVE
[2018-07-29] MEDS ORDERED: ONDANSETRON HCL INJ/PF 4 MG/2 ML SDV ONE (19:35)
[2018-07-29] MEDS ORDERED: PROMETHAZINE HCL INJ 25 MG/1 ML VIAL IV PRN (20:19)
[2018-07-29] MEDS ORDERED: MEPERIDINE HCL/PF INJ 25 MG/1 ML DISP.SYRIN IV PRN (20:19)
[2018-07-29] MEDS ORDERED: FENTANYL CITRATE INJ/PF 100 MCG/2 ML AMPUL IV PRN ×3 (20:19)
[2018-07-29] MEDS ORDERED: DIPHENHYDRAMINE HCL 50 MG/ML VIAL IV PRN (20:19)
[2018-07-29] MEDS ORDERED: HYDROMORPHONE HCL INJ/PF 2 MG/ML AMPULE ONE (20:29)
--- NOTE | 2018-07-29 21:15 | Operative Report ---
Operative Report DATE OF SURGERY: 07/29/18 PREOPERATIVE DIAGNOSIS: 1. Sepsis. 2. Morbid obesity. 3. Diabetes mellitus. 4. Necrotic stage IV decubiti of the left posterior thigh, left foot, and right foot POSTOPERATIVE DIAGNOSIS: Same with osteomyelitis of the right fifth toe, right heel OPERATION: 1. Toe trimming of 10 toes. 2. Extensive debridement right foot plantar surface necrotic skin, necrotic subcutaneous tissue, necrotic fascia; approximately 25 g of tissue removed. 3. Extensive debridement left foot plantar surface including skin, subcutaneous tissue, and fascia, approximately 25 g. 4. Extensive debridement of left thigh decubitus stage IV including skin and subcutaneous tissue SURGEON: KESHIA ZHANG ANESTHESIA: GA TISSUE REMOVED OR ALTERED: See below; skin, subcutaneous tissue, fascia COMPLICATIONS: None ESTIMATED BLOOD LOSS: 200 cc INTRAOPERATIVE FINDINGS: See below PROCEDURE: Patient was moved from the bed to the main operating room, general anesthesia was induced. Legs were prepped and draped in sterile fashion. Surgical plan surgical timeout were conducted The findings were significant for necrotic plantar wounds, stage IV decubiti. Right foot debrided first. Heavy scissors were used to trim the hypertrophic toenails 1 through 5; using knife, scissors, and curette, approximately tissue was removed from the plantar surface of the right foot including the right heel, lateral aspect of the right foot, lateral aspect, as well as the base of the right fifth metatarsal. There is fascia which was sharply debrided with heavy scissors as well. Approximately 25 g of tissue was removed. Pulse lavage irrigation was performed approximately 1/2 L. Electrocautery used to control bleeding. This was a thorough but not complete debridement of all nonviable tissue. The identical procedures performed on the left side. Approximately 25 to 30 g of tissue removed from the plantar surface, heel, and lateral aspect of the foot. All 5 toenails were also debrided. Instruments used including knife, scissors. The level of dissection was taken down to the fascial fascia the plantar surface of the foot. Cautery was used to control bleeding. Xeroform 4 x 4's and Kerlix used to dress both feet. The patient was then rolled in the right lateral decubitus position left posterior thigh exposed, prepped with Betadine, and then sharply debrided of skin, subcutaneous tissue down to a depth of 5 cm; approximately 10 g of fat and skin were excisionally debrided with scissors, #10 blade. Wound irrigated pulse lavaged with a liter of saline, bleeders cauterized and Kerlix dressing packed into the wound. Patient was rolled back in the supine position, rolled onto the stretcher, and then extubated She was taken recovery in stable condition in condition.
[2018-07-29] MEDS ORDERED: VANCOMYCIN HCL INJ 1000 MG VIAL ONE ×2 (22:52→22:59)
[2018-07-29] MEDS: GABAPENTIN 100 MG CAPSULE PO SCH (22:55)
[2018-07-29] MEDS: BUSPIRONE HCL 10 MG TABLET PO SCH (22:55)
[2018-07-29] MEDS: VANCOMYCIN HCL 1,500 MG in DEXTROSE 5%-WATER 250 ML IV SCH (22:58)
[2018-07-29] MEDS ORDERED: PIPERACILLIN/TAZOBACTAM 4.5 GM VIAL IV ONE (23:23)
[2018-07-29] MEDS ORDERED: FOLIC ACID/VITAMIN B COMP W-C CAPSULE ONE (23:23)
[2018-07-29] MEDS: PIPERACILLIN SODIUM/TAZOBACTAM 4.5 GM in NORMAL SALINE 100 ML IV SCH (23:33)
[2018-07-30] MEDS: PIPERACILLIN SODIUM/TAZOBACTAM 4.5 GM in NORMAL SALINE 100 ML IV SCH ×4 (01:07→17:20)
[2018-07-30] MEDS ORDERED: PIPERACILLIN/TAZOBACTAM 4.5 GM VIAL IV ONE (01:25)
[2018-07-30] MEDS: PANTOPRAZOLE SODIUM 40 MG TABLET.DR PO SCH ×2 (05:52→17:02)
[2018-07-30] MEDS: HEPARIN SOD (PORCINE) 5,000 UNIT/ML 1 ML SYRINGE SUBCUT SCH ×3 (05:52→21:11)
[2018-07-30] MEDS: GABAPENTIN 100 MG CAPSULE PO SCH ×3 (05:52→21:10)
[2018-07-30 06:12] LABS: HEMATOCRIT 28.9 % (36.0-47.0); HEMOGLOBIN 9.5 g/dL (12.0-15.5); MEAN CORPUSCULAR HEMOGLOBIN 28.3 pg (27.0-33.4); MEAN CORPUSCULAR HGB CONC 32.7 g/dL (32.0-36.0); MEAN CORPUSCULAR VOLUME 87 fl (80-97); PLATELET COUNT 303 10^3/uL (150-450); RED BLOOD COUNT 3.34 10^6/uL (3.72-5.28); RED CELL DISTRIBUTION WIDTH 17.8 % (11.5-14.0); WHITE BLOOD COUNT 23.4 10^3/uL (4.0-10.5)
[2018-07-30 06:20] LABS: ANION GAP 7 (5-19); BLOOD UREA NITROGEN 31 mg/dL (7-20); CARBON DIOXIDE 24 mmol/L (22-30); CHLORIDE 104 mmol/L (98-107); GLUCOSE 75 mg/dL (75-110); PHOSPHORUS 3.5 mg/dL (2.5-4.5); POTASSIUM 4.4 mmol/L (3.6-5.0); SODIUM 134.5 mmol/L (137-145)
[2018-07-30 07:00] LABS: ABSOLUTE LYMPHOCYTES# (MANUAL) 1.9 10^3/uL (0.5-4.7); ABSOLUTE MONOCYTES # (MANUAL) 0.7 10^3/uL (0.1-1.4); BAND NEUTROPHILS % (MANUAL) 2 % (3-5); BASOPHILS % (MANUAL) 0 % (0-2); EOSINOPHILS % (MANUAL) 1 % (0-6); LYMPHOCYTES % (MANUAL) 8 % (13-45); METAMYELOCYTES % (MANUAL) 1 % (0); MONOCYTES % (MANUAL) 3 % (3-13); PLATELET COMMENT ADEQUATE; SEGMENTED NEUTROPHILS % (MAN) 85 % (42-78); TOTAL CELLS COUNTED 100
[2018-07-30 07:02] LABS: TOXIC GRANULATION 2+
[2018-07-30 07:03] LABS: ANISOCYTOSIS 2+; POIKILOCYTOSIS SLIGHT
[2018-07-30] MEDS ORDERED: DOCUSATE SODIUM 100 MG/10 ML UDC PO SCH (10:00)
[2018-07-30] MEDS: VENLAFAXINE HCL 37.5 MG CAP.SR.24H PO SCH (10:24)
[2018-07-30] MEDS: BUSPIRONE HCL 10 MG TABLET PO SCH ×2 (10:24→21:10)
[2018-07-30] MEDS: NORMAL SALINE 1000 ML 1,000 ML IV PRN (10:27)
[2018-07-30] MEDS: VANCOMYCIN HCL 1,000 MG in DEXTROSE 5%-WATER 250 ML IV SCH ×2 (11:26→21:27)
--- NOTE | 2018-07-30 12:54 | PDOC PROGRESS REPORT ---
Subjective Progress Note for:: 07/30/18 Subjective:: Patient sleeping Reason For Visit: SEPSIS Physical Exam Vital Signs: Temp Pulse Resp BP Pulse Ox 98.0 F 103 H 18 110/61 97 07/30/18 08:22 07/30/18 08:22 07/30/18 08:22 07/30/18 08:22 07/30/18 08:22 Intake & Output 07/29/18 07/30/18 07/31/18 06:59 06:59 06:59 Intake Total 6367 200 Output Total 975 600 Balance 5392 -400 Weight 129.7 kg Musculoskeletal exam: PRESENT: other - Minimal bloody drainage from the feet dressing; minimal drainage from left posterior thigh dressing Results Laboratory Results: 07/30/18 05:03 07/30/18 05:03 07/29/18 07/29/18 07/29/18 13:50 13:50 13:50 WBC 28.6 H RBC 3.75 Hgb 10.7 L Hct 32.3 L MCV 86 MCH 28.4 MCHC 33.0 RDW 18.7 H Plt Count 491 H Seg Neutrophils % Not Reportable Lymphocytes % Not Reportable Monocytes % Not Reportable Eosinophils % Not Reportable Basophils % Not Reportable Absolute Neutrophils Not Reportable Absolute Lymphocytes Not Reportable Absolute Monocytes Not Reportable Absolute Eosinophils Not Reportable Absolute Basophils Not Reportable VBG pH VBG pCO2 VBG HCO3 VBG Base Excess Sodium 132.1 L Potassium 5.2 H Chloride 96 L Carbon Dioxide 22 Anion Gap 14 BUN 37 H Creatinine 0.98 Est GFR ( Amer) > 60 Est GFR (Non-Af Amer) 58 L Glucose 110 Lactic Acid Calcium 12.9 H* Phosphorus Magnesium Total Bilirubin 1.3 AST 75 H ALT 8 L Alkaline Phosphatase 297 H Ammonia C-Reactive Protein 70.6 H Total Protein 8.5 H Albumin 3.4 L TSH PTH Intact Urine Color Urine Appearance Urine pH Ur Specific [place] Urine Protein Urine Glucose (UA) Urine Ketones Urine Blood Urine Nitrite Ur Leukocyte Esterase Urine WBC (Auto) Urine RBC (Auto) 07/29/18 07/29/18 07/29/18 13:50 15:30 16:22 WBC RBC Hgb Hct MCV MCH MCHC RDW Plt Count Seg Neutrophils % Lymphocytes % Monocytes % Eosinophils % Basophils % Absolute Neutrophils Absolute Lymphocytes Absolute Monocytes Absolute Eosinophils Absolute Basophils VBG pH 7.51 H VBG pCO2 32.6 L VBG HCO3 25.4 VBG Base Excess 3.0 Sodium Potassium Chloride Carbon Dioxide Anion Gap BUN Creatinine Est GFR ( Amer) Est GFR (Non-Af Amer) Glucose Lactic Acid 4.2 H Calcium Phosphorus Magnesium Total Bilirubin AST ALT Alkaline Phosphatase Ammonia C-Reactive Protein Total Protein Albumin TSH 6.16 H PTH Intact Urine Color Urine Appearance Urine pH Ur Specific [place] Urine Protein Urine Glucose (UA) Urine Ketones Urine Blood Urine Nitrite Ur Leukocyte Esterase Urine WBC (Auto) Urine RBC (Auto) 07/29/18 07/29/18 07/29/18 16:22 18:07 18:07 WBC RBC Hgb Hct MCV MCH MCHC RDW Plt Count Seg Neutrophils % Lymphocytes % Monocytes % Eosinophils % Basophils % Absolute Neutrophils Absolute Lymphocytes Absolute Monocytes Absolute Eosinophils Absolute Basophils VBG pH VBG pCO2 VBG HCO3 VBG Base Excess Sodium Potassium Chloride Carbon Dioxide Anion Gap BUN Creatinine Est GFR ( Amer) Est GFR (Non-Af Amer) Glucose Lactic Acid 3.1 H Calcium Phosphorus Magnesium Total Bilirubin AST ALT Alkaline Phosphatase Ammonia C-Reactive Protein Total Protein Albumin TSH PTH Intact 6.2 L Urine Color ROBERT Urine Appearance CLOUDY Urine pH 6.0 Ur Specific [place] 1.011 Urine Protein NEGATIVE Urine Glucose (UA) NEGATIVE Urine Ketones NEGATIVE Urine Blood MODERATE H Urine Nitrite NEGATIVE Ur Leukocyte Esterase LARGE H Urine WBC (Auto) >182 Urine RBC (Auto) 10 07/29/18 07/29/18 07/30/18 18:07 22:48 05:03 WBC RBC Hgb Hct MCV MCH MCHC RDW Plt Count Seg Neutrophils % Lymphocytes % Monocytes % Eosinophils % Basophils % Absolute Neutrophils Absolute Lymphocytes Absolute Monocytes Absolute Eosinophils Absolute Basophils VBG pH VBG pCO2 VBG HCO3 VBG Base Excess Sodium Potassium Chloride Carbon Dioxide Anion Gap BUN Creatinine Est GFR ( Amer) Est GFR (Non-Af Amer) Glucose Lactic Acid 1.7 1.5 Calcium Phosphorus Magnesium Total Bilirubin AST ALT Alkaline Phosphatase Ammonia < 8.7 L C-Reactive Protein Total Protein Albumin TSH PTH Intact Urine Color Urine Appearance Urine pH Ur Specific [place] Urine Protein Urine Glucose (UA) Urine Ketones Urine Blood Urine Nitrite Ur Leukocyte Esterase Urine WBC (Auto) Urine RBC (Auto) 07/30/18 07/30/18 05:03 05:03 WBC 23.4 H RBC 3.34 L Hgb 9.5 L Hct 28.9 L MCV 87 MCH 28.3 MCHC 32.7 RDW 17.8 H Plt Count 303 Seg Neutrophils % Not Reportable Lymphocytes % Not Reportable Monocytes % Not Reportable Eosinophils % Not Reportable Basophils % Not Reportable Absolute Neutrophils Not Reportable Absolute Lymphocytes Not Reportable Absolute Monocytes Not Reportable Absolute Eosinophils Not Reportable Absolute Basophils Not Reportable VBG pH VBG pCO2 VBG HCO3 VBG Base Excess Sodium 134.5 L Potassium 4.4 Chloride 104 Carbon Dioxide 24 Anion Gap 7 BUN 31 H Creatinine 0.88 Est GFR ( Amer) > 60 Est GFR (Non-Af Amer) > 60 Glucose 75 Lactic Acid Calcium 11.0 H Phosphorus 3.5 Magnesium 2.4 H Total Bilirubin AST ALT Alkaline Phosphatase Ammonia C-Reactive Protein Total Protein Albumin TSH PTH Intact Urine Color Urine Appearance Urine pH Ur Specific [place] Urine Protein Urine Glucose (UA) Urine Ketones Urine Blood Urine Nitrite Ur Leukocyte Esterase Urine WBC (Auto) Urine RBC (Auto) Impressions: Chest X-Ray 07/29/18 15:16 IMPRESSION: NO ACUTE RADIOGRAPHIC FINDING IN THE CHEST. Foot X-Ray 07/29/18 15:30 IMPRESSION: 1. Suboptimal exam due to patient positioning. Age indeterminate minimally di splaced fracture of the proximal phalanx of the right 5th digit. 2. Possible osseous erosions of the posterior right calcaneus underlying the patient's known soft tissue ulcer concerning for active osteitis. 3. Soft tissue ulcer overlying the proximal left 5th metatarsal without definite radiographic findings to suggest active osteitis. Assessment & Plan - Diagnosis (1) Decubitus ulcer, stage IV Is this a current diagnosis for this admission?: Yes Plan: Impression: Patient is 1 day status post extensive debridement of left posterior thigh, bilateral feet stage IV decubiti, hemodynamically stable. Persisting leukocytosis. Cultures pending. On broad-spectrum intravenous antibiotics. Recommendations: 1. I discussed dressing changes with nursing staff; orders written 2. We will reinspect wounds tomorrow morning. 3. This is a pathetic situation; 57-year-old morbidly obese white female with multiple acute and chronic medical problems who is homeless, and immobile. The likelihood of healing of the feet is extremely low, especially the right foot with exposed tendon and right fifth metatarsal head, and fifth toe cartilage exposure. (2) Morbid obesity Is this a current diagnosis for this admission?: Yes (3) Sepsis Qualifiers: Sepsis type: sepsis due to unspecified organism Qualified Code(s): A41.9 - Sepsis, unspecified organism Is this a current diagnosis for this admission?: Yes (4) Infestation by insect Is this a current diagnosis for this admission?: Yes (6) Depression Qualifiers: Depression Type: major depressive disorder Is this a current diagnosis for this admission?: Yes (7) Hypertension Qualifiers: Hypertension type: essential hypertension Qualified Code(s): I10 - Essential (primary) hypertension Is this a current diagnosis for this admission?: Yes
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
[2018-07-30] MEDS: MORPHINE SULFATE 10 MG/ML INJ IV PRN (14:04)
[2018-07-30] MEDS ORDERED: NORMAL SALINE 1000 ML 1,000 ML with POTASSIUM CHLORIDE 20 MEQ, MAGNESIUM SULFATE 8 MEQ,... IV PRN ×5 (17:00)
[2018-07-30] MEDS: FOLIC ACID/VITAMIN B COMP W-C CAPSULE PO SCH (17:02)
[2018-07-31] MEDS: PIPERACILLIN SODIUM/TAZOBACTAM 4.5 GM in NORMAL SALINE 100 ML IV SCH ×4 (00:47→18:43)
[2018-07-31] MEDS: PANTOPRAZOLE SODIUM 40 MG TABLET.DR PO SCH ×2 (05:34→16:26)
[2018-07-31] MEDS: HEPARIN SOD (PORCINE) 5,000 UNIT/ML 1 ML SYRINGE SUBCUT SCH ×3 (05:34→22:42)
[2018-07-31] MEDS: GABAPENTIN 100 MG CAPSULE PO SCH ×3 (05:35→22:43)
[2018-07-31 05:46] LABS: MEAN CORPUSCULAR HEMOGLOBIN 28.4 pg (27.0-33.4); MEAN CORPUSCULAR HGB CONC 32.5 g/dL (32.0-36.0); MEAN CORPUSCULAR VOLUME 87 fl (80-97); PLATELET COUNT 276 10^3/uL (150-450); RED BLOOD COUNT 2.75 10^6/uL (3.72-5.28); RED CELL DISTRIBUTION WIDTH 18.4 % (11.5-14.0); WHITE BLOOD COUNT 14.4 10^3/uL (4.0-10.5)
[2018-07-31 05:53] LABS: HEMOGLOBIN 7.8 g/dL (12.0-15.5)
[2018-07-31 06:04] LABS: ABSOLUTE LYMPHOCYTES# (MANUAL) 1.3 10^3/uL (0.5-4.7); ABSOLUTE MONOCYTES # (MANUAL) 0.3 10^3/uL (0.1-1.4); BAND NEUTROPHILS % (MANUAL) 1 % (3-5); BASOPHILS % (MANUAL) 0 % (0-2); EOSINOPHILS % (MANUAL) 3 % (0-6); LYMPHOCYTES % (MANUAL) 9 % (13-45); MONOCYTES % (MANUAL) 2 % (3-13); SEGMENTED NEUTROPHILS % (MAN) 82 % (42-78); TOTAL CELLS COUNTED 100
[2018-07-31 06:05] LABS: TOXIC GRANULATION 1+
[2018-07-31 06:06] LABS: ANISOCYTOSIS 2+; HYPOCHROMASIA SLIGHT; PLATELET COMMENT ADEQUATE; POLYCHROMASIA SLIGHT
[2018-07-31 06:09] LABS: METAMYELOCYTES % (MANUAL) 3 % (0)
[2018-07-31 06:11] LABS: ANION GAP 6 (5-19); BLOOD UREA NITROGEN 18 mg/dL (7-20); CALCIUM 9.9 mg/dL (8.4-10.2); CARBON DIOXIDE 23 mmol/L (22-30); CHLORIDE 107 mmol/L (98-107); GLUCOSE 84 mg/dL (75-110); PHOSPHORUS 2.8 mg/dL (2.5-4.5)
[2018-07-31 06:20] LABS: POTASSIUM 3.3 mmol/L (3.6-5.0)
[2018-07-31] MEDS ORDERED: POTASSIUM CHLORIDE 10 MEQ CAPSULE.ER PO ONE (08:00)
[2018-07-31] MEDS ORDERED: FUROSEMIDE INJ/PF 20 MG/2 ML SDV IV PRN (09:07)
[2018-07-31] MEDS ORDERED: DIPHENHYDRAMINE HCL 50 MG/ML VIAL IV PRN (09:15)
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
[2018-07-31] MEDS: MORPHINE SULFATE 10 MG/ML INJ IV PRN ×2 (10:36→14:52)
[2018-07-31] MEDS: VANCOMYCIN HCL 1,000 MG in DEXTROSE 5%-WATER 250 ML IV SCH (10:41)
[2018-07-31] MEDS: BUSPIRONE HCL 10 MG TABLET PO SCH ×2 (10:41→22:43)
[2018-07-31] MEDS: VENLAFAXINE HCL 37.5 MG CAP.SR.24H PO SCH (10:42)
--- NOTE | 2018-07-31 10:42 | PDOC PROGRESS REPORT ---
Subjective Progress Note for:: 07/31/18 Subjective:: pains long ulcer sites on both feet and left hip Reason For Visit: SEPSIS Physical Exam Vital Signs: Temp Pulse Resp BP Pulse Ox 98.0 F 114 H 16 140/67 H 96 07/31/18 05:05 07/31/18 09:13 07/31/18 09:13 07/31/18 05:05 07/31/18 09:13 Intake & Output 07/30/18 07/31/18 08/01/18 06:59 06:59 06:59 Intake Total 6367 2900 Output Total 975 1500 Balance 5392 1400 Weight 129.7 kg 129.9 kg Exam: Deep Right heel ulcer with small area of necrosis Left foot ulcer along lateral foot extending to heel area with some aeas of necrosis, no abscess. Left hip deep ulcer with small area of necrosis. Most of the wound looks clean Results Laboratory Results: 07/31/18 04:48 07/31/18 04:48 07/31/18 07/31/18 07/31/18 04:48 04:48 07:24 WBC 14.4 H RBC 2.75 L Hgb 7.8 L Hct 24.0 L MCV 87 MCH 28.4 MCHC 32.5 RDW 18.4 H Plt Count 276 Seg Neutrophils % Not Reportable Lymphocytes % Not Reportable Monocytes % Not Reportable Eosinophils % Not Reportable Basophils % Not Reportable Absolute Neutrophils Not Reportable Absolute Lymphocytes Not Reportable Absolute Monocytes Not Reportable Absolute Eosinophils Not Reportable Absolute Basophils Not Reportable Sodium 136.0 L Potassium 3.3 L D Chloride 107 Carbon Dioxide 23 Anion Gap 6 BUN 18 Creatinine 0.77 Est GFR ( Amer) > 60 Est GFR (Non-Af Amer) > 60 Glucose 84 Calcium 9.9 Phosphorus 2.8 Magnesium 2.2 Blood Type O POSITIVE Antibody Screen NEGATIVE Impressions: Chest X-Ray 07/29/18 15:16 IMPRESSION: NO ACUTE RADIOGRAPHIC FINDING IN THE CHEST. Foot X-Ray 07/29/18 15:30 IMPRESSION: 1. Suboptimal exam due to patient positioning. Age indeterminate minimally displaced fracture of the proximal phalanx of the right 5th digit. 2. Possible osseous erosions of the posterior right calcaneus underlying the patient's known soft tissue ulcer concerning for active osteitis. 3. Soft tissue ulcer overlying the proximal left 5th metatarsal without definite radiographic findings to suggest active osteitis. Assessment & Plan - Time Time Spent with patient: 15-24 minutes - Inpatient Certification Medical Necessity: Need for Pain Control, Need for IV Antibiotics, Need for Surgery, Risk of Complication if Not Cared For in Hospital - Plan Summary Plan Summary: Needs extensive nursing care and PT Continue wet to dry dressings 2x/day Continue IV antibiotics Will likely need wound [facility] tx for all 3 wounds Need Rehab
[2018-07-31] MEDS: DOCUSATE SODIUM 100 MG CAPSULE PO SCH (10:43)
[2018-07-31 13:37] LABS: HEPATITIS A AB IGM Negative (Negative); HEPATITIS B CORE AB IGM Negative (Negative); HEPATITS B SURFACE ANTIGEN Negative (Negative)
[2018-07-31 13:53] LABS: PATH REVIEW PATHOLOGIST REVIEWED
[2018-07-31 14:00] LABS: HEPATITIS C VIRUS ANTIBODY 0.2 s/co ratio (0.0-0.9)
[2018-07-31 14:18] LABS: FREE T4 (FREE THYROXINE) 1.97 ng/dL (0.78-2.19)
[2018-07-31 14:46] LABS: FREE T3 2.58 pg/mL (2.77-5.27)
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
[2018-07-31] MEDS: FOLIC ACID/VITAMIN B COMP W-C CAPSULE PO SCH (16:26)
--- NOTE | 2018-07-31 16:48 | RADIOLOGY REPORT (SQ) ---
EXAM DESCRIPTION: PICC INSERTION; FLUORO/CV PLACEMENT; U/S GUIDE FOR VASCULAR ACCESS COMPLETED DATE/TIME: 07/31/2018 4:09 pm REASON FOR STUDY: prison antiobic theorpy; IV ABX COMPARISON: AP chest 07/29/2018 FLUOROSCOPY TIME: 28 seconds 2 no fluoroscopic and 1 ultrasound images saved to PACS. TECHNIQUE: Fluoroscopic and ultrasound guided PICC placement. LIMITATIONS: None. PROCEDURE: After written consent and assessment were obtained, the patient was brought into the fluo roscopy room and placed supine on the table. Ultrasound evaluation of potential access sites were per formed. After successfully identifying a patent left basilic vein, the left arm was prepped and drape d in a sterile fashion along with the ultrasound probe. The entry site was anesthetized with 1% lidoc sarita. A 21 gauge 7 cm needle was advanced through the skin and into the basilic vein under live ultra sound guidance. An ultrasound image was saved to PACS confirming access site. A .018 guide wire was then inserted through the needle and into the venous system. The needle was then removed and an 11 b lade scalpel was used to make a 1cm skin incision. A 5 fr peel-away sheath was advanced over the wir e and into the venous system. A measurement was then made using the existing wire and live fluoroscop ic guidance. The wire was then removed and trimmed. The PICC was advanced through the peel-away sheat h and into the venous system. The peel-away sheath was removed and the catheter was adhered to the pa tients arm with a stat lock. The catheter was then aspirated and flushed and a sterile bandage was pl aced over the access site. A fluoroscopic spot image was saved to PACS confirming the catheter tip w ithin the superior vena cava. IMPRESSION: SUCCESSFUL PLACEMENT OF A 5 FR DUAL LUMEN 28 CM PICC IN THE LEFT BASILIC VEIN. COMMENT: Patient medication list reviewed: Yes- Quality ID# [id number]:Eligible professional attests to doc umenting in the medical record they obtained, updated, or reviewed the patient's current medications. . Quality ID 145: Final reports for procedures using fluoroscopy that document radiation exposure [place], or exposure time and number of fluorographic images (if radiation exposure indices are not avail able) Quality ID #76: The patient was prepped and draped using maximum sterile barrier technique including cap, mask, sterile gown, sterile gloves, a large sterile sheet, hand hygiene, and 2% Chlorhexidine fo r cutaneous antisepsis. When ultrasound is used, sterile ultrasound techniques are followed requiring sterile gel and sterile probes. TECHNICAL DOCUMENTATION: JOB ID: [id number] [employer]- All Rights Reserved rev-07/01 Reading location - IP/workstation name: [facility] - [facility]
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
--- NOTE | 2018-07-31 16:48 | RADIOLOGY REPORT (SQ) ---
EXAM DESCRIPTION: PICC INSERTION; FLUORO/CV PLACEMENT; U/S GUIDE FOR VASCULAR ACCESS COMPLETED DATE/TIME: 07/31/2018 4:09 pm REASON FOR STUDY: jail antiobic theorpy; IV ABX COMPARISON: AP chest 07/29/2018 FLUOROSCOPY TIME: 28 seconds 2 no fluoroscopic and 1 ultrasound images saved to PACS. TECHNIQUE: Fluoroscopic and ultrasound guided PICC placement. LIMITATIONS: None. PROCEDURE: After written consent and assessment were obtained, the patient was brought into the fluo roscopy room and placed supine on the table. Ultrasound evaluation of potential access sites were per formed. After successfully identifying a patent left basilic vein, the left arm was prepped and drape d in a sterile fashion along with the ultrasound probe. The entry site was anesthetized with 1% lidoc sarita. A 21 gauge 7 cm needle was advanced through the skin and into the basilic vein under live ultra sound guidance. An ultrasound image was saved to PACS confirming access site. A .018 guide wire was then inserted through the needle and into the venous system. The needle was then removed and an 11 b lade scalpel was used to make a 1cm skin incision. A 5 fr peel-away sheath was advanced over the wir e and into the venous system. A measurement was then made using the existing wire and live fluoroscop ic guidance. The wire was then removed and trimmed. The PICC was advanced through the peel-away sheat h and into the venous system. The peel-away sheath was removed and the catheter was adhered to the pa tients arm with a stat lock. The catheter was then aspirated and flushed and a sterile bandage was pl aced over the access site. A fluoroscopic spot image was saved to PACS confirming the catheter tip w ithin the superior vena cava. IMPRESSION: SUCCESSFUL PLACEMENT OF A 5 FR DUAL LUMEN 28 CM PICC IN THE LEFT BASILIC VEIN. COMMENT: Patient medication list reviewed: Yes- Quality ID# [id number]:Eligible professional attests to doc umenting in the medical record they obtained, updated, or reviewed the patient's current medications. . Quality ID 145: Final reports for procedures using fluoroscopy that document radiation exposure [place], or exposure time and number of fluorographic images (if radiation exposure indices are not avail able) Quality ID #76: The patient was prepped and draped using maximum sterile barrier technique including cap, mask, sterile gown, sterile gloves, a large sterile sheet, hand hygiene, and 2% Chlorhexidine fo r cutaneous antisepsis. When ultrasound is used, sterile ultrasound techniques are followed requiring sterile gel and sterile probes. TECHNICAL DOCUMENTATION: JOB ID: [id number] [employer]- All Rights Reserved rev-07/01 Reading location - IP/workstation name: [facility] CITYRyland
[2018-07-31] MEDS ORDERED: NORMAL SALINE 10 ML SDV (AFTER EACH USE) IV PRN (17:00)
[2018-07-31 17:54] LABS: HEMATOCRIT 27.1 % (36.0-47.0); MEAN CORPUSCULAR HEMOGLOBIN 28.4 pg (27.0-33.4); MEAN CORPUSCULAR HGB CONC 33.3 g/dL (32.0-36.0); MEAN CORPUSCULAR VOLUME 85 fl (80-97); PLATELET COUNT 309 10^3/uL (150-450); RED BLOOD COUNT 3.17 10^6/uL (3.72-5.28); RED CELL DISTRIBUTION WIDTH 17.9 % (11.5-14.0); WHITE BLOOD COUNT 17.2 10^3/uL (4.0-10.5)
[2018-07-31 18:12] LABS: ABSOLUTE LYMPHOCYTES# (MANUAL) 1.7 10^3/uL (0.5-4.7); ABSOLUTE MONOCYTES # (MANUAL) 1.4 10^3/uL (0.1-1.4); BAND NEUTROPHILS % (MANUAL) 2 % (3-5); BASOPHILS % (MANUAL) 0 % (0-2); EOSINOPHILS % (MANUAL) 1 % (0-6); LYMPHOCYTES % (MANUAL) 9 % (13-45); MONOCYTES % (MANUAL) 8 % (3-13); SEGMENTED NEUTROPHILS % (MAN) 79 % (42-78); TOTAL CELLS COUNTED 100
[2018-07-31 18:14] LABS: ANISOCYTOSIS 1+; PLATELET COMMENT ADEQUATE; POLYCHROMASIA 1+; TOXIC GRANULATION SLIGHT
[2018-07-31] MEDS: NORMAL SALINE 10 ML SDV (SCHEDULED) IV SCH (22:42)
[2018-08-01] MEDS: VANCOMYCIN HCL 1,500 MG in DEXTROSE 5%-WATER 250 ML IV SCH (00:19)
[2018-08-01] MEDS: PIPERACILLIN SODIUM/TAZOBACTAM 4.5 GM in NORMAL SALINE 100 ML IV SCH ×5 (00:31→23:36)
[2018-08-01] MEDS: NORMAL SALINE 1000 ML 1,000 ML IV PRN ×3 (00:34→21:58)
[2018-08-01] MEDS: HEPARIN SOD (PORCINE) 5,000 UNIT/ML 1 ML SYRINGE SUBCUT SCH ×3 (05:32→21:59)
[2018-08-01] MEDS: GABAPENTIN 100 MG CAPSULE PO SCH ×3 (05:32→21:59)
[2018-08-01] MEDS: PANTOPRAZOLE SODIUM 40 MG TABLET.DR PO SCH ×2 (05:32→17:26)
[2018-08-01] MEDS: MORPHINE SULFATE 10 MG/ML INJ IV PRN ×2 (05:41→18:14)
[2018-08-01 07:55] LABS: HEMATOCRIT 25.7 % (36.0-47.0); HEMOGLOBIN 8.4 g/dL (12.0-15.5); MEAN CORPUSCULAR HEMOGLOBIN 28.2 pg (27.0-33.4); MEAN CORPUSCULAR HGB CONC 32.5 g/dL (32.0-36.0); MEAN CORPUSCULAR VOLUME 87 fl (80-97); PLATELET COUNT 290 10^3/uL (150-450); RED BLOOD COUNT 2.97 10^6/uL (3.72-5.28); RED CELL DISTRIBUTION WIDTH 18.4 % (11.5-14.0); WHITE BLOOD COUNT 18.3 10^3/uL (4.0-10.5)
[2018-08-01 08:04] LABS: ALANINE AMINOTRANSFERASE 27 U/L (9-52); ALBUMIN 1.7 g/dL (3.5-5.0); ALKALINE PHOSPHATASE 153 U/L (38-126); ASPARTATE AMINO TRANSFERASE 41 U/L (14-36); BILIRUBIN,DIRECT 1.2 mg/dL (0.0-0.4); BILIRUBIN,TOTAL 1.6 mg/dL (0.2-1.3); BLOOD UREA NITROGEN 10 mg/dL (7-20); CALCIUM 8.4 mg/dL (8.4-10.2); GLUCOSE 107 mg/dL (75-110); PHOSPHORUS 2.4 mg/dL (2.5-4.5); TOTAL PROTEIN 4.5 g/dL (6.3-8.2)
[2018-08-01 08:09] LABS: CARBON DIOXIDE 22 mmol/L (22-30); CHLORIDE 110 mmol/L (98-107); SODIUM 136.1 mmol/L (137-145)
[2018-08-01 08:30] LABS: ANION GAP 4 (5-19)
[2018-08-01 08:46] LABS: ABSOLUTE LYMPHOCYTES# (MANUAL) 0.9 10^3/uL (0.5-4.7); ABSOLUTE MONOCYTES # (MANUAL) 1.3 10^3/uL (0.1-1.4); BASOPHILS % (MANUAL) 1 % (0-2); EOSINOPHILS % (MANUAL) 0 % (0-6); LYMPHOCYTES % (MANUAL) 5 % (13-45); METAMYELOCYTES % (MANUAL) 1 % (0); MONOCYTES % (MANUAL) 7 % (3-13); SEGMENTED NEUTROPHILS % (MAN) 86 % (42-78); TOTAL CELLS COUNTED 100
[2018-08-01 08:47] LABS: ANISOCYTOSIS 2+; PLATELET COMMENT ADEQUATE; POLYCHROMASIA SLIGHT; TOXIC GRANULATION SLIGHT; TOXIC VACUOLATION PRESENT
[2018-08-01] MEDS: VANCOMYCIN HCL 750 MG in DEXTROSE 5%-WATER 250 ML IV SCH ×2 (11:18→21:58)
[2018-08-01] MEDS: POTASSIUM CHLORIDE 10 MEQ CAPSULE.ER PO SCH ×2 (11:19→21:58)
[2018-08-01] MEDS: BUSPIRONE HCL 10 MG TABLET PO SCH ×2 (11:20→21:59)
[2018-08-01] MEDS: VENLAFAXINE HCL 37.5 MG CAP.SR.24H PO SCH (11:20)
[2018-08-01] MEDS: DOCUSATE SODIUM 100 MG CAPSULE PO SCH (11:20)
[2018-08-01] MEDS: NORMAL SALINE 10 ML SDV (SCHEDULED) IV SCH ×2 (11:21→21:59)
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
[2018-08-01] MEDS: FOLIC ACID/VITAMIN B COMP W-C CAPSULE PO SCH (17:26)
--- NOTE | 2018-08-01 19:53 | PDOC PROGRESS REPORT ---
Subjective Progress Note for:: 08/01/18 Subjective:: pains along wound sites Reason For Visit: SEPSIS Physical Exam Vital Signs: Temp Pulse Resp BP Pulse Ox 98.6 F 102 H 18 142/77 H 95 08/01/18 16:49 08/01/18 16:49 08/01/18 16:49 08/01/18 16:49 08/01/18 16:49 Intake & Output 07/31/18 08/01/18 08/02/18 06:59 06:59 06:59 Intake Total 2900 1910 3065 Output Total 1500 1375 1725 Balance 1761 474 8985 Weight 129.9 kg 131 kg Exam: Right foot ulcers look clean. 2 sites: 1 at the distal medial area about 4-5 cm. 2nd at the heel area about 6 -7 cm in diameter with the cutaneous bone exposed. Left foot with one large ulcer from the lateral 5th toe to the heel that also looks relatively clean. 5th metatarsal bone partly exposed. Left hip ulcer looks relatively clean. Results Laboratory Results: 08/01/18 06:00 08/01/18 06:00 08/01/18 08/01/18 06:00 06:00 WBC 18.3 H RBC 2.97 L Hgb 8.4 L Hct 25.7 L MCV 87 MCH 28.2 MCHC 32.5 RDW 18.4 H Plt Count 290 Seg Neutrophils % Not Reportable Lymphocytes % Not Reportable Monocytes % Not Reportable Eosinophils % Not Reportable Basophils % Not Reportable Absolute Neutrophils Not Reportable Absolute Lymphocytes Not Reportable Absolute Monocytes Not Reportable Absolute Eosinophils Not Reportable Absolute Basophils Not Reportable Sodium 136.1 L Potassium 3.0 L* Chloride 110 H Carbon Dioxide 22 Anion Gap 4 L BUN 10 Creatinine 0.54 Est GFR ( Amer) > 60 Est GFR (Non-Af Amer) > 60 Glucose 107 Calcium 8.4 Phosphorus 2.4 L Total Bilirubin 1.6 H AST 41 H ALT 27 Alkaline Phosphatase 153 H Total Protein 4.5 L Albumin 1.7 L Impressions: Chest X-Ray 07/29/18 15:16 IMPRESSION: NO ACUTE RADIOGRAPHIC FINDING IN THE CHEST. Foot X-Ray 07/29/18 15:30 IMPRESSION: 1. Suboptimal exam due to patient positioning. Age indeterminate minimally dis placed fracture of the proximal phalanx of the right 5th digit. 2. Possible osseous erosions of the posterior right calcaneus underlying the patient's known soft tissue ulcer concerning for active osteitis. 3. Soft tissue ulcer overlying the proximal left 5th metatarsal without definite radiographic findings to suggest active osteitis. Guidance Fluoroscopy 07/31/18 00:00 IMPRESSION: SUCCESSFUL PLACEMENT OF A 5 FR DUAL LUMEN 28 CM PICC IN THE LEFT BASILIC VEIN. Interventional Vascular Procedure 07/31/18 00:00 IMPRESSION: SUCCESSFUL PLACEMENT OF A 5 FR DUAL LUMEN 28 CM PICC IN THE LEFT BASILIC VEIN. PICC Line Insertion 07/31/18 13:06 IMPRESSION: SUCCESSFUL PLACEMENT OF A 5 FR DUAL LUMEN 28 CM PICC IN THE LEFT BASILIC VEIN. Assessment & Plan - Diagnosis (1) Pressure ulcer of both feet, stage 4 Is this a current diagnosis for this admission?: Yes (2) Decubitus ulcer of left buttock Qualifiers: Pressure injury stage: stage 3 Qualified Code(s): L89.323 - Pressure ulcer of left buttock, stage 3 Is this a current diagnosis for this admission?: Yes (3) Malnutrition due to starvation Is this a current diagnosis for this admission?: Yes (4) Morbid obesity Is this a current diagnosis for this admission?: Yes (5) Depression Qualifiers: Depression Type: major depressive disorder Is this a current diagnosis for this admission?: Yes - Time Time Spent with patient: 15-24 minutes - Inpatient Certification Medical Necessity: Significant Comorbidiites Make Outpatient Treatment Too Risky, Need Close Monitoring Due to Risk of Patient Decompensation, Need for IV Antibiotics, Risk of Complication if Not Cared For in Hospital - Plan Summary Plan Summary: Wet to dry dressings re-applied to all ulcer sites. Plan: Needs continued wet to dry dressings to all ulcer sites. May eventually need wound VAC and plastic surgery evaluation and mx. Continue improve nutritional status Continue IV antibiotics
[2018-08-02] MEDS: MORPHINE SULFATE 10 MG/ML INJ IV PRN ×3 (05:33→15:26)
[2018-08-02] MEDS: HEPARIN SOD (PORCINE) 5,000 UNIT/ML 1 ML SYRINGE SUBCUT SCH ×3 (05:34→23:03)
[2018-08-02] MEDS: PANTOPRAZOLE SODIUM 40 MG TABLET.DR PO SCH ×2 (05:34→18:15)
[2018-08-02] MEDS: GABAPENTIN 100 MG CAPSULE PO SCH ×3 (05:34→23:04)
[2018-08-02] MEDS: PIPERACILLIN SODIUM/TAZOBACTAM 4.5 GM in NORMAL SALINE 100 ML IV SCH ×4 (05:35→23:05)
[2018-08-02 07:03] LABS: HEMATOCRIT 23.1 % (36.0-47.0); MEAN CORPUSCULAR HEMOGLOBIN 28.1 pg (27.0-33.4); MEAN CORPUSCULAR HGB CONC 32.3 g/dL (32.0-36.0); MEAN CORPUSCULAR VOLUME 87 fl (80-97); PLATELET COUNT 273 10^3/uL (150-450); RED BLOOD COUNT 2.66 10^6/uL (3.72-5.28); RED CELL DISTRIBUTION WIDTH 19.2 % (11.5-14.0); WHITE BLOOD COUNT 14.2 10^3/uL (4.0-10.5)
[2018-08-02 07:05] LABS: HEMOGLOBIN 7.5 g/dL (12.0-15.5)
[2018-08-02 07:24] LABS: VANCOMYCIN,TROUGH 14.3 ug/mL (5.0-20.0)
[2018-08-02 07:28] LABS: ALANINE AMINOTRANSFERASE 27 U/L (9-52); ALBUMIN 1.6 g/dL (3.5-5.0); ALKALINE PHOSPHATASE 144 U/L (38-126); ASPARTATE AMINO TRANSFERASE 30 U/L (14-36); BILIRUBIN,DIRECT 1.1 mg/dL (0.0-0.4); BILIRUBIN,TOTAL 1.4 mg/dL (0.2-1.3); BLOOD UREA NITROGEN 6 mg/dL (7-20); CALCIUM 8.3 mg/dL (8.4-10.2); GLUCOSE 80 mg/dL (75-110); TOTAL PROTEIN 4.5 g/dL (6.3-8.2)
[2018-08-02 07:33] LABS: CARBON DIOXIDE 24 mmol/L (22-30); CHLORIDE 110 mmol/L (98-107); SODIUM 137.6 mmol/L (137-145)
[2018-08-02 07:35] LABS: ANION GAP 4 (5-19)
[2018-08-02 07:56] LABS: ABSOLUTE LYMPHOCYTES# (MANUAL) 1.7 10^3/uL (0.5-4.7); ABSOLUTE MONOCYTES # (MANUAL) 0.6 10^3/uL (0.1-1.4); BAND NEUTROPHILS % (MANUAL) 2 % (3-5); BASOPHILS % (MANUAL) 0 % (0-2); EOSINOPHILS % (MANUAL) 0 % (0-6); LYMPHOCYTES % (MANUAL) 10 % (13-45); MONOCYTES % (MANUAL) 4 % (3-13); SEGMENTED NEUTROPHILS % (MAN) 82 % (42-78); TOTAL CELLS COUNTED 100
[2018-08-02 07:57] LABS: ANISOCYTOSIS 2+; BURR CELLS 2+; PLATELET COMMENT ADEQUATE; POIKILOCYTOSIS 2+; POLYCHROMASIA SLIGHT; TOXIC GRANULATION SLIGHT
[2018-08-02] MEDS: NORMAL SALINE 1000 ML 1,000 ML IV PRN (09:14)
[2018-08-02] MEDS: BUSPIRONE HCL 10 MG TABLET PO SCH ×2 (09:15→23:04)
[2018-08-02] MEDS: POTASSIUM CHLORIDE 10 MEQ CAPSULE.ER PO SCH ×2 (09:15→18:15)
[2018-08-02] MEDS: DOCUSATE SODIUM 100 MG CAPSULE PO SCH (09:15)
[2018-08-02] MEDS: NORMAL SALINE 10 ML SDV (SCHEDULED) IV SCH ×2 (09:15→23:05)
[2018-08-02] MEDS: VENLAFAXINE HCL 37.5 MG CAP.SR.24H PO SCH (09:15)
[2018-08-02] MEDS: VANCOMYCIN HCL 750 MG in DEXTROSE 5%-WATER 250 ML IV SCH (09:16)
[2018-08-02] MEDS: ALBUMIN HUMAN 12.5 GM/50 ML RTUINJ IV SCH ×4 (11:13→14:17)
--- NOTE | 2018-08-02 12:16 | PDOC PROGRESS REPORT ---
Subjective Progress Note for:: 08/02/18 Subjective:: Is a 57-year-old female with multiple decubitus ulcers due to an inability to ambulate or move. The patient reports back pain today. She denies significant foot pain. She denies fevers or chills. She also denies chest pain, shortness of breath, nausea, vomiting, abdominal pain, blurry vision, dizziness, orthostasis, hearing difficulties. Reason For Visit: SEPSIS Physical Exam Vital Signs: Temp Pulse Resp BP Pulse Ox 98.0 F 107 H 14 132/75 H 96 08/02/18 12:00 08/02/18 12:00 08/02/18 12:00 08/02/18 12:00 08/02/18 12:00 Intake & Output 08/01/18 08/02/18 08/03/18 06:59 06:59 06:59 Intake Total 1910 5815 532 Output Total 1375 3325 Balance 535 2490 532 Weight 131 kg 132 kg General appearance: PRESENT: no acute distress, morbidly obese Head exam: PRESENT: normocephalic Eye exam: PRESENT: EOMI, PERRLA. ABSENT: scleral icterus Mouth exam: PRESENT: moist, neck supple Teeth exam: PRESENT: poor dentation Neck exam: ABSENT: meningismus, tenderness, thyromegaly, tracheal deviation Respiratory exam: PRESENT: unlabored. ABSENT: chest wall tenderness, tachypnea, wheezes Cardiovascular exam: PRESENT: RRR Pulses: PRESENT: normal radial pulses GI/Abdominal exam: PRESENT: soft. ABSENT: tenderness Rectal exam: PRESENT: deferred Gentrourinary exam: PRESENT: other - Sheets present Extremities exam: PRESENT: +2 edema - Bilateral lower extremities, other - Right foot: large soft tissue defect (plantar aspect) with exposed heel, this covers approximately 50 to 60% of the entire surface area of the foot. Left foot: Large skin and soft tissue defect on the lateral aspect, approximately 20% of the tota l surface area of the foot. There are several areas of moderately viable tissue on bilateral feet. No active infection is present. No purulence. No foul odor. Neurological exam: PRESENT: alert, awake, oriented to person, oriented to place, oriented to time, oriented to situation Psychiatric exam: PRESENT: anxious Focused psych exam: ABSENT: delusional Skin exam: PRESENT: other - See extremity exam. Left posterior thigh wound: Stage IV decubitus ulcer with exposed muscle and subcutaneous fat. No active necrosis. Results Laboratory Results: 08/02/18 05:45 08/02/18 05:45 07/31/18 08/02/18 08/02/18 07:24 05:45 05:45 WBC 14.2 H RBC 2.66 L Hgb 7.5 L Hct 23.1 L MCV 87 MCH 28.1 MCHC 32.3 RDW 19.2 H Plt Count 273 Seg Neutrophils % Not Reportable Lymphocytes % Not Reportable Monocytes % Not Reportable Eosinophils % Not Reportable Basophils % Not Reportable Absolute Neutrophils Not Reportable Absolute Lymphocytes Not Reportable Absolute Monocytes Not Reportable Absolute Eosinophils Not Reportable Absolute Basophils Not Reportable Sodium Potassium Chloride Carbon Dioxide Anion Gap BUN Creatinine Cancelled Est GFR ( Amer) Cancelled Est GFR (Non-Af Amer) Cancelled Glucose Calcium Magnesium Total Bilirubin AST ALT Alkaline Phosphatase Total Protein Albumin Blood Type O POSITIVE Antibody Screen NEGATIVE 08/02/18 05:45 WBC RBC Hgb Hct MCV MCH MCHC RDW Plt Count Seg Neutrophils % Lymphocytes % Monocytes % Eosinophils % Basophils % Absolute Neutrophils Absolute Lymphocytes Absolute Monocytes Absolute Eosinophils Absolute Basophils Sodium 137.6 Potassium 3.0 L* Chloride 110 H Carbon Dioxide 24 Anion Gap 4 L BUN 6 L Creatinine 0.47 L Est GFR ( Amer) > 60 Est GFR (Non-Af Amer) > 60 Glucose 80 Calcium 8.3 L Magnesium 1.7 Total Bilirubin 1.4 H AST 30 ALT 27 Alkaline Phosphatase 144 H Total Protein 4.5 L Albumin 1.6 L Blood Type Antibody Screen 07/30/18 15:25 Foot - Decubitis Ulcer Gram Stain - Final Impressions: Chest X-Ray 07/29/18 15:16 IMPRESSION: NO ACUTE RADIOGRAPHIC FINDING IN THE CHEST. Foot X-Ray 07/29/18 15:30 IMPRESSION: 1. Suboptimal exam due to patient positioning. Age indeterminate minimally dis placed fracture of the proximal phalanx of the right 5th digit. 2. Possible osseous erosions of the posterior right calcaneus underlying the patient's known soft tissue ulcer concerning for active osteitis. 3. Soft tissue ulcer overlying the proximal left 5th metatarsal without definite radiographic findings to suggest active osteitis. Guidance Fluoroscopy 07/31/18 00:00 IMPRESSION: SUCCESSFUL PLACEMENT OF A 5 FR DUAL LUMEN 28 CM PICC IN THE LEFT BASILIC VEIN. Interventional Vascular Procedure 07/31/18 00:00 IMPRESSION: SUCCESSFUL PLACEMENT OF A 5 FR DUAL LUMEN 28 CM PICC IN THE LEFT BASILIC VEIN. PICC Line Insertion 07/31/18 13:06 IMPRESSION: SUCCESSFUL PLACEMENT OF A 5 FR DUAL LUMEN 28 CM PICC IN THE LEFT BASILIC VEIN. Assessment & Plan - Diagnosis (1) Decubitus ulcer, stage IV Qualifiers: Pressure injury location: thigh Laterality: left Qualified Code(s): L89.224 - Pressure ulcer of left hip, stage 4 Is this a current diagnosis for this admission?: Yes (2) Morbid obesity Is this a current diagnosis for this admission?: Yes (3) Pressure ulcer of both feet, stage 4 Is this a current diagnosis for this admission?: Yes - Plan Summary Plan Summary: This is a 57-year-old female with severe decubiti of multiple locations. Her right foot is, I believe, unsalvageable. Her left foot may potentially be salvageable, with significant rehabilitation and aggressive wound care. The left posterior thigh wound is clean, without signs of infection or necrosis. At this time, the patient is not interested in discussing amputation. Continue with local wound care. She would greatly benefit from an evaluation by plastic surgery and/or transfer to a tertiary care center. I will start Josh montoya sings to the decubiti, to aid in debridement. If the patient is willing to undergo amputation of the right foot, please renotify surgery service. Otherwise, surgery will sign off for now. Patient should follow-up with the wound care clinic. Surgicalist service is available, if needed.
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
[2018-08-02] MEDS: FOLIC ACID/VITAMIN B COMP W-C CAPSULE PO SCH (18:15)
[2018-08-02 18:44] LABS: HEMATOCRIT 31.9 % (36.0-47.0); MEAN CORPUSCULAR HEMOGLOBIN 28.7 pg (27.0-33.4); MEAN CORPUSCULAR HGB CONC 32.7 g/dL (32.0-36.0); MEAN CORPUSCULAR VOLUME 88 fl (80-97); PLATELET COUNT 290 10^3/uL (150-450); RED BLOOD COUNT 3.64 10^6/uL (3.72-5.28); RED CELL DISTRIBUTION WIDTH 17.6 % (11.5-14.0); WHITE BLOOD COUNT 16.6 10^3/uL (4.0-10.5)
[2018-08-02 18:45] LABS: HEMOGLOBIN 10.4 g/dL (12.0-15.5)
[2018-08-02] MEDS: COLLAGENASE CLOSTRIDIUM HIST. OINT 30 GM TOP SCH (18:53)
[2018-08-02 18:54] LABS: ABSOLUTE MONOCYTES # (MANUAL) 0.5 10^3/uL (0.1-1.4); BAND NEUTROPHILS % (MANUAL) 3 % (3-5); BASOPHILS % (MANUAL) 1 % (0-2); EOSINOPHILS % (MANUAL) 1 % (0-6); LYMPHOCYTES % (MANUAL) 12 % (13-45); MONOCYTES % (MANUAL) 3 % (3-13); NUCLEATED RED BLOOD CELLS 1 /100 WBC (0); SEGMENTED NEUTROPHILS % (MAN) 80 % (42-78); TOTAL CELLS COUNTED 100
[2018-08-02 18:55] LABS: PLATELET CLUMPS PRESENT
[2018-08-02 18:56] LABS: TOXIC GRANULATION 1+
[2018-08-02 18:57] LABS: HYPOCHROMASIA SLIGHT; POLYCHROMASIA 1+
[2018-08-02 18:58] LABS: ANISOCYTOSIS 2+; POIKILOCYTOSIS SLIGHT
[2018-08-03] MEDS: MORPHINE SULFATE 10 MG/ML INJ IV PRN ×4 (04:12→21:52)
[2018-08-03] MEDS: PANTOPRAZOLE SODIUM 40 MG TABLET.DR PO SCH ×2 (05:11→17:36)
[2018-08-03] MEDS: HEPARIN SOD (PORCINE) 5,000 UNIT/ML 1 ML SYRINGE SUBCUT SCH ×3 (05:11→21:52)
[2018-08-03] MEDS: GABAPENTIN 100 MG CAPSULE PO SCH ×3 (05:11→21:53)
[2018-08-03] MEDS: PIPERACILLIN SODIUM/TAZOBACTAM 4.5 GM in NORMAL SALINE 100 ML IV SCH ×4 (05:11→23:00)
[2018-08-03 08:54] LABS: ABSOLUTE RETICS # 0.157 10^6/uL (0.028-0.122); HEMATOCRIT 33.6 % (36.0-47.0); MEAN CORPUSCULAR HEMOGLOBIN 28.5 pg (27.0-33.4); MEAN CORPUSCULAR HGB CONC 32.9 g/dL (32.0-36.0); MEAN CORPUSCULAR VOLUME 87 fl (80-97); PLATELET COUNT 301 10^3/uL (150-450); RED BLOOD COUNT 3.87 10^6/uL (3.72-5.28); RED CELL DISTRIBUTION WIDTH 17.8 % (11.5-14.0); RETICULOCYTE COUNT (AUTO) 4.06 % (0.66-2.85); WHITE BLOOD COUNT 16.3 10^3/uL (4.0-10.5)
[2018-08-03 09:11] LABS: ABSOLUTE LYMPHOCYTES# (MANUAL) 2.3 10^3/uL (0.5-4.7); ABSOLUTE MONOCYTES # (MANUAL) 0.8 10^3/uL (0.1-1.4); BAND NEUTROPHILS % (MANUAL) 1 % (3-5); BASOPHILS % (MANUAL) 0 % (0-2); EOSINOPHILS % (MANUAL) 1 % (0-6); LYMPHOCYTES % (MANUAL) 14 % (13-45); MONOCYTES % (MANUAL) 5 % (3-13); SEGMENTED NEUTROPHILS % (MAN) 79 % (42-78); TOTAL CELLS COUNTED 100
[2018-08-03 09:13] LABS: OVALOCYTES SLIGHT; PLATELET COMMENT ADEQUATE; POIKILOCYTOSIS SLIGHT; POLYCHROMASIA SLIGHT
[2018-08-03 09:16] LABS: ALANINE AMINOTRANSFERASE 18 U/L (9-52); ALBUMIN 2.4 g/dL (3.5-5.0); ALKALINE PHOSPHATASE 161 U/L (38-126); ANION GAP 6 (5-19); ASPARTATE AMINO TRANSFERASE 37 U/L (14-36); BILIRUBIN,DIRECT 2.7 mg/dL (0.0-0.4); BILIRUBIN,TOTAL 3.4 mg/dL (0.2-1.3); BLOOD UREA NITROGEN 6 mg/dL (7-20); CALCIUM 10.7 mg/dL (8.4-10.2); CARBON DIOXIDE 27 mmol/L (22-30); CHLORIDE 104 mmol/L (98-107); GLUCOSE 115 mg/dL (75-110); IRON(TIBC) 32.8 ug/dL (37-170); POTASSIUM 3.7 mmol/L (3.6-5.0); SODIUM 137.4 mmol/L (137-145); TOTAL PROTEIN 5.9 g/dL (6.3-8.2)
[2018-08-03] MEDS: BUSPIRONE HCL 10 MG TABLET PO SCH ×2 (09:45→21:52)
[2018-08-03] MEDS: DOCUSATE SODIUM 100 MG CAPSULE PO SCH (09:45)
[2018-08-03] MEDS: VENLAFAXINE HCL 37.5 MG CAP.SR.24H PO SCH (09:45)
[2018-08-03] MEDS: NORMAL SALINE 10 ML SDV (SCHEDULED) IV SCH ×2 (09:45→21:53)
[2018-08-03] MEDS: POTASSIUM CHLORIDE 10 MEQ CAPSULE.ER PO SCH ×2 (09:46→17:35)
[2018-08-03] MEDS: COLLAGENASE CLOSTRIDIUM HIST. OINT 30 GM TOP SCH ×2 (09:47→21:54)
[2018-08-03] MEDS: FOLIC ACID/VITAMIN B COMP W-C CAPSULE PO SCH (17:36)
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
[2018-08-03] MEDS ORDERED: HYDRALAZINE HCL INJ/PF 20 MG/1 ML SDV IV PRN (19:14)
[2018-08-03] MEDS: CARVEDILOL 6.25 MG TABLET PO SCH (21:52)
[2018-08-04] MEDS: HEPARIN SOD (PORCINE) 5,000 UNIT/ML 1 ML SYRINGE SUBCUT SCH ×3 (05:29→21:37)
[2018-08-04] MEDS: CARVEDILOL 6.25 MG TABLET PO SCH ×2 (05:29→17:54)
[2018-08-04] MEDS: GABAPENTIN 100 MG CAPSULE PO SCH ×3 (05:29→21:37)
[2018-08-04] MEDS: PIPERACILLIN SODIUM/TAZOBACTAM 4.5 GM in NORMAL SALINE 100 ML IV SCH (05:29)
[2018-08-04] MEDS: PANTOPRAZOLE SODIUM 40 MG TABLET.DR PO SCH ×2 (05:29→17:54)
[2018-08-04] MEDS: MORPHINE SULFATE 10 MG/ML INJ IV PRN ×2 (05:33→17:54)
[2018-08-04 09:28] LABS: HEMATOCRIT 35.1 % (36.0-47.0); HEMOGLOBIN 11.4 g/dL (12.0-15.5); MEAN CORPUSCULAR HEMOGLOBIN 28.4 pg (27.0-33.4); MEAN CORPUSCULAR HGB CONC 32.5 g/dL (32.0-36.0); MEAN CORPUSCULAR VOLUME 88 fl (80-97); PLATELET COUNT 311 10^3/uL (150-450); RED BLOOD COUNT 4.02 10^6/uL (3.72-5.28); RED CELL DISTRIBUTION WIDTH 18.1 % (11.5-14.0); WHITE BLOOD COUNT 13.7 10^3/uL (4.0-10.5)
[2018-08-04 09:36] LABS: ALANINE AMINOTRANSFERASE 21 U/L (9-52); ALBUMIN 2.4 g/dL (3.5-5.0); ALKALINE PHOSPHATASE 168 U/L (38-126); ANION GAP 6 (5-19); ASPARTATE AMINO TRANSFERASE 44 U/L (14-36); BILIRUBIN,DIRECT 1.5 mg/dL (0.0-0.4); BLOOD UREA NITROGEN 8 mg/dL (7-20); CALCIUM 11.7 mg/dL (8.4-10.2); CARBON DIOXIDE 28 mmol/L (22-30); CHLORIDE 104 mmol/L (98-107); GLUCOSE 97 mg/dL (75-110); POTASSIUM 4.3 mmol/L (3.6-5.0); SODIUM 138.2 mmol/L (137-145); TOTAL PROTEIN 6.1 g/dL (6.3-8.2)
[2018-08-04 09:44] LABS: ABSOLUTE LYMPHOCYTES# (MANUAL) 2.9 10^3/uL (0.5-4.7); ABSOLUTE MONOCYTES # (MANUAL) 0.5 10^3/uL (0.1-1.4); ANISOCYTOSIS 1+; BAND NEUTROPHILS % (MANUAL) 4 % (3-5); BASOPHILS % (MANUAL) 0 % (0-2); EOSINOPHILS % (MANUAL) 2 % (0-6); LYMPHOCYTES % (MANUAL) 21 % (13-45); MONOCYTES % (MANUAL) 4 % (3-13); PLATELET COMMENT ADEQUATE; SEGMENTED NEUTROPHILS % (MAN) 69 % (42-78); TOTAL CELLS COUNTED 100
[2018-08-04 09:45] LABS: OVALOCYTES SLIGHT; POIKILOCYTOSIS SLIGHT; POLYCHROMASIA 1+
[2018-08-04] MEDS: FERROUS SULFATE 325 MG TABLET PO SCH ×2 (10:32→17:53)
[2018-08-04] MEDS: VENLAFAXINE HCL 37.5 MG CAP.SR.24H PO SCH (10:32)
[2018-08-04] MEDS: DOCUSATE SODIUM 100 MG CAPSULE PO SCH (10:32)
[2018-08-04] MEDS: BUSPIRONE HCL 10 MG TABLET PO SCH ×2 (10:32→21:36)
[2018-08-04] MEDS: POTASSIUM CHLORIDE 10 MEQ CAPSULE.ER PO SCH ×2 (10:32→17:54)
[2018-08-04] MEDS: NORMAL SALINE 10 ML SDV (SCHEDULED) IV SCH ×2 (10:33→21:38)
[2018-08-04] MEDS: COLLAGENASE CLOSTRIDIUM HIST. OINT 30 GM TOP SCH ×2 (10:33→21:38)
[2018-08-04] MEDS: MEGESTROL ACETATE 20 MG TABLET PO SCH (13:07)
[2018-08-04] MEDS: LEVOFLOXACIN 750 MG TABLET PO SCH (13:07)
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
[2018-08-04] MEDS: FOLIC ACID/VITAMIN B COMP W-C CAPSULE PO SCH (17:54)
[2018-08-05 04:36] LABS: ABSOLUTE BASOPHILS # (AUTO) 0.1 10^3/uL (0.0-0.2); ABSOLUTE EOSINOPHILS # (AUTO) 0.1 10^3/uL (0.0-0.6); ABSOLUTE LYMPHOCYTES (AUTO) 2.3 10^3/uL (0.5-4.7); ABSOLUTE MONOCYTES (AUTO) 1.3 10^3/uL (0.1-1.4); ABSOLUTE NEUT (AUTO) 9.3 10^3/uL (1.7-8.2); BASOPHILS % (AUTO) 0.8 % (0-2); EOSINOPHILS % (AUTO) 0.6 % (0-6); HEMATOCRIT 34.3 % (36.0-47.0); HEMOGLOBIN 11.2 g/dL (12.0-15.5); LYMPHOCYTES % (AUTO) 17.6 % (13-45); MEAN CORPUSCULAR HEMOGLOBIN 28.5 pg (27.0-33.4); MEAN CORPUSCULAR HGB CONC 32.6 g/dL (32.0-36.0); MEAN CORPUSCULAR VOLUME 87 fl (80-97); MONOCYTES % (AUTO) 9.9 % (3-13); PLATELET COUNT 300 10^3/uL (150-450); RED BLOOD COUNT 3.93 10^6/uL (3.72-5.28); RED CELL DISTRIBUTION WIDTH 18.2 % (11.5-14.0); SEGMENTED NEUTROPHILS % (AUTO) 71.1 % (42-78); TOTAL CELLS COUNTED % (AUTO) 100 %; WHITE BLOOD COUNT 13.1 10^3/uL (4.0-10.5)
[2018-08-05 04:57] LABS: ALANINE AMINOTRANSFERASE 18 U/L (9-52); ALBUMIN 2.5 g/dL (3.5-5.0); ALKALINE PHOSPHATASE 158 U/L (38-126); ANION GAP 5 (5-19); ASPARTATE AMINO TRANSFERASE 49 U/L (14-36); BILIRUBIN,DIRECT 1.1 mg/dL (0.0-0.4); BILIRUBIN,TOTAL 1.4 mg/dL (0.2-1.3); BLOOD UREA NITROGEN 15 mg/dL (7-20); CARBON DIOXIDE 29 mmol/L (22-30); CHLORIDE 103 mmol/L (98-107); GLUCOSE 108 mg/dL (75-110); POTASSIUM 4.2 mmol/L (3.6-5.0); SODIUM 137.2 mmol/L (137-145); TOTAL PROTEIN 6.3 g/dL (6.3-8.2)
[2018-08-05 05:08] LABS: CALCIUM 12.4 mg/dL (8.4-10.2)
[2018-08-05] MEDS: MORPHINE SULFATE 10 MG/ML INJ IV PRN ×2 (05:53→17:00)
[2018-08-05] MEDS: HEPARIN SOD (PORCINE) 5,000 UNIT/ML 1 ML SYRINGE SUBCUT SCH ×3 (05:53→21:44)
[2018-08-05] MEDS: PANTOPRAZOLE SODIUM 40 MG TABLET.DR PO SCH ×2 (05:54→17:48)
[2018-08-05] MEDS: GABAPENTIN 100 MG CAPSULE PO SCH ×3 (05:54→21:44)
[2018-08-05] MEDS: CARVEDILOL 6.25 MG TABLET PO SCH ×2 (05:54→17:48)
[2018-08-05] MEDS ORDERED: FUROSEMIDE INJ/PF 20 MG/2 ML SDV IV ONE (06:00)
[2018-08-05] MEDS ORDERED: NORMAL SALINE 1000 ML 1,000 ML IV ONE (06:00)
[2018-08-05] MEDS: BUSPIRONE HCL 10 MG TABLET PO SCH ×2 (11:42→21:43)
[2018-08-05] MEDS: FERROUS SULFATE 325 MG TABLET PO SCH ×2 (11:42→17:49)
[2018-08-05] MEDS: DOCUSATE SODIUM 100 MG CAPSULE PO SCH (11:43)
[2018-08-05] MEDS: VENLAFAXINE HCL 37.5 MG CAP.SR.24H PO SCH (11:43)
[2018-08-05] MEDS: NORMAL SALINE 10 ML SDV (SCHEDULED) IV SCH ×2 (11:44→21:44)
[2018-08-05] MEDS: MEGESTROL ACETATE 20 MG TABLET PO SCH (11:44)
[2018-08-05] MEDS: POTASSIUM CHLORIDE 10 MEQ CAPSULE.ER PO SCH ×2 (11:44→17:49)
[2018-08-05] MEDS: COLLAGENASE CLOSTRIDIUM HIST. OINT 30 GM TOP SCH ×2 (11:46→21:43)
[2018-08-05] MEDS: LEVOFLOXACIN 750 MG TABLET PO SCH (11:58)
[2018-08-05] MEDS ORDERED: NORMAL SALINE 1000 ML 1,000 ML IV PRN (13:08)
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
[2018-08-05] MEDS ORDERED: PAMIDRONATE DISODIUM INJ 30 MG/10 ML VIAL IV ONE (13:24)
[2018-08-05] MEDS ORDERED: MORPHINE SULFATE 10 MG/ML INJ IV PRN (13:51)
[2018-08-05] MEDS ORDERED: ZOLEDRONIC ACID 4 MG/100 ML RTU IV ONE (14:15)
[2018-08-05] MEDS ORDERED: CALCITONIN,SALMON,SYNTHETIC 400 UNIT/2 ML VIAL IM ONE (14:15)
[2018-08-05] MEDS: NORMAL SALINE 1000 ML 1,000 ML IV PRN (15:58)
[2018-08-05] MEDS: FOLIC ACID/VITAMIN B COMP W-C CAPSULE PO SCH (16:16)
[2018-08-05] MEDS ORDERED: FENTANYL CITRATE INJ/PF 100 MCG/2 ML AMPUL ONE (17:13)
[2018-08-05] MEDS: PIPERACILLIN SODIUM/TAZOBACTAM 4.5 GM in NORMAL SALINE 100 ML IV SCH (17:50)
[2018-08-05] MEDS: FUROSEMIDE INJ/PF 20 MG/2 ML SDV IV SCH (17:50)
[2018-08-06] MEDS: PIPERACILLIN SODIUM/TAZOBACTAM 4.5 GM in NORMAL SALINE 100 ML IV SCH ×2 (00:27→05:28)
[2018-08-06] MEDS: MORPHINE SULFATE 10 MG/ML INJ IV PRN ×3 (03:52→18:16)
[2018-08-06] MEDS: NORMAL SALINE 1000 ML 1,000 ML IV PRN (05:28)
[2018-08-06] MEDS: CARVEDILOL 6.25 MG TABLET PO SCH ×2 (05:29→18:03)
[2018-08-06] MEDS: HEPARIN SOD (PORCINE) 5,000 UNIT/ML 1 ML SYRINGE SUBCUT SCH ×3 (05:29→21:34)
[2018-08-06] MEDS: GABAPENTIN 100 MG CAPSULE PO SCH ×3 (05:29→21:33)
[2018-08-06] MEDS: PANTOPRAZOLE SODIUM 40 MG TABLET.DR PO SCH ×2 (05:29→18:02)
[2018-08-06 08:06] LABS: HEMATOCRIT 32.1 % (36.0-47.0); HEMOGLOBIN 10.6 g/dL (12.0-15.5); MEAN CORPUSCULAR HGB CONC 33.1 g/dL (32.0-36.0); MEAN CORPUSCULAR VOLUME 87 fl (80-97); PLATELET COUNT 262 10^3/uL (150-450); RED BLOOD COUNT 3.68 10^6/uL (3.72-5.28); RED CELL DISTRIBUTION WIDTH 18.2 % (11.5-14.0); WHITE BLOOD COUNT 12.5 10^3/uL (4.0-10.5)
[2018-08-06 08:21] LABS: ALANINE AMINOTRANSFERASE 21 U/L (9-52); ALBUMIN 2.4 g/dL (3.5-5.0); ALKALINE PHOSPHATASE 152 U/L (38-126); ANION GAP 6 (5-19); ASPARTATE AMINO TRANSFERASE 45 U/L (14-36); BILIRUBIN,DIRECT 0.8 mg/dL (0.0-0.4); BILIRUBIN,TOTAL 1.2 mg/dL (0.2-1.3); BLOOD UREA NITROGEN 16 mg/dL (7-20); CALCIUM 10.2 mg/dL (8.4-10.2); CARBON DIOXIDE 28 mmol/L (22-30); CHLORIDE 106 mmol/L (98-107); GLUCOSE 111 mg/dL (75-110); POTASSIUM 3.4 mmol/L (3.6-5.0); SODIUM 139.5 mmol/L (137-145); TOTAL PROTEIN 5.9 g/dL (6.3-8.2)
[2018-08-06 08:29] LABS: ABSOLUTE LYMPHOCYTES# (MANUAL) 2.5 10^3/uL (0.5-4.7); ABSOLUTE MONOCYTES # (MANUAL) 0.5 10^3/uL (0.1-1.4); ANISOCYTOSIS 2+; BASOPHILS % (MANUAL) 0 % (0-2); EOSINOPHILS % (MANUAL) 1 % (0-6); LYMPHOCYTES % (MANUAL) 20 % (13-45); MONOCYTES % (MANUAL) 4 % (3-13); SEGMENTED NEUTROPHILS % (MAN) 75 % (42-78); TOTAL CELLS COUNTED 100
[2018-08-06 08:30] LABS: PLATELET COMMENT ADEQUATE
[2018-08-06] MEDS: POTASSIUM CHLORIDE 10 MEQ CAPSULE.ER PO SCH ×2 (09:18→18:06)
[2018-08-06] MEDS: BUSPIRONE HCL 10 MG TABLET PO SCH ×2 (09:20→21:33)
[2018-08-06] MEDS: FERROUS SULFATE 325 MG TABLET PO SCH ×2 (09:21→18:02)
[2018-08-06] MEDS: VENLAFAXINE HCL 37.5 MG CAP.SR.24H PO SCH (09:21)
[2018-08-06] MEDS: DOCUSATE SODIUM 100 MG CAPSULE PO SCH (09:21)
[2018-08-06] MEDS: MEGESTROL ACETATE 20 MG TABLET PO SCH (09:21)
[2018-08-06] MEDS: FUROSEMIDE INJ/PF 20 MG/2 ML SDV IV SCH (09:22)
[2018-08-06] MEDS: NORMAL SALINE 10 ML SDV (SCHEDULED) IV SCH ×2 (09:24→21:36)
[2018-08-06] MEDS: COLLAGENASE CLOSTRIDIUM HIST. OINT 30 GM TOP SCH ×2 (09:26→21:46)
[2018-08-06] MEDS ORDERED: FUROSEMIDE INJ/PF 20 MG/2 ML SDV IV SCH (10:00)
[2018-08-06] MEDS ORDERED: NORMAL SALINE 1000 ML 1,000 ML IV PRN (11:13)
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
[2018-08-06] MEDS: LEVOFLOXACIN 750 MG TABLET PO SCH (12:51)
[2018-08-06] MEDS: FOLIC ACID/VITAMIN B COMP W-C CAPSULE PO SCH (18:02)
[2018-08-06] MEDS ORDERED: COLLAGENASE CLOSTRIDIUM HIST. OINT 30 GM ONE (19:39)
[2018-08-07] MEDS: MORPHINE SULFATE 10 MG/ML INJ IV PRN ×4 (00:50→22:17)
[2018-08-07 06:00] LABS: HEMATOCRIT 30.3 % (36.0-47.0); HEMOGLOBIN 9.9 g/dL (12.0-15.5); MEAN CORPUSCULAR HEMOGLOBIN 28.9 pg (27.0-33.4); MEAN CORPUSCULAR HGB CONC 32.7 g/dL (32.0-36.0); MEAN CORPUSCULAR VOLUME 88 fl (80-97); PLATELET COUNT 234 10^3/uL (150-450); RED BLOOD COUNT 3.43 10^6/uL (3.72-5.28); RED CELL DISTRIBUTION WIDTH 18.3 % (11.5-14.0); WHITE BLOOD COUNT 11.1 10^3/uL (4.0-10.5)
[2018-08-07] MEDS: HEPARIN SOD (PORCINE) 5,000 UNIT/ML 1 ML SYRINGE SUBCUT SCH ×3 (06:03→22:37)
[2018-08-07] MEDS: CARVEDILOL 6.25 MG TABLET PO SCH (06:05)
[2018-08-07] MEDS: GABAPENTIN 100 MG CAPSULE PO SCH ×3 (06:05→22:16)
[2018-08-07] MEDS: PANTOPRAZOLE SODIUM 40 MG TABLET.DR PO SCH ×2 (06:05→17:08)
[2018-08-07 06:20] LABS: ALANINE AMINOTRANSFERASE 20 U/L (9-52); ALBUMIN 2.2 g/dL (3.5-5.0); ALKALINE PHOSPHATASE 144 U/L (38-126); ASPARTATE AMINO TRANSFERASE 42 U/L (14-36); BILIRUBIN,DIRECT 0.6 mg/dL (0.0-0.4); BILIRUBIN,TOTAL 0.7 mg/dL (0.2-1.3); BLOOD UREA NITROGEN 13 mg/dL (7-20); CALCIUM 8.5 mg/dL (8.4-10.2); GLUCOSE 93 mg/dL (75-110); POTASSIUM 3.2 mmol/L (3.6-5.0); TOTAL PROTEIN 5.3 g/dL (6.3-8.2)
[2018-08-07 06:25] LABS: CARBON DIOXIDE 26 mmol/L (22-30); CHLORIDE 110 mmol/L (98-107); SODIUM 140.4 mmol/L (137-145)
[2018-08-07 06:29] LABS: ANION GAP 4 (5-19)
[2018-08-07 06:46] LABS: ABSOLUTE LYMPHOCYTES# (MANUAL) 1.1 10^3/uL (0.5-4.7); ABSOLUTE MONOCYTES # (MANUAL) 0.9 10^3/uL (0.1-1.4); BAND NEUTROPHILS % (MANUAL) 2 % (3-5); BASOPHILS % (MANUAL) 0 % (0-2); EOSINOPHILS % (MANUAL) 0 % (0-6); LYMPHOCYTES % (MANUAL) 8 % (13-45); MONOCYTES % (MANUAL) 8 % (3-13); SEGMENTED NEUTROPHILS % (MAN) 80 % (42-78); TOTAL CELLS COUNTED 100
[2018-08-07 06:47] LABS: HYPOCHROMASIA 1+; POLYCHROMASIA SLIGHT
[2018-08-07 06:48] LABS: PLATELET COMMENT ADEQUATE
[2018-08-07] MEDS: VENLAFAXINE HCL 37.5 MG CAP.SR.24H PO SCH (09:20)
[2018-08-07] MEDS: DOCUSATE SODIUM 100 MG CAPSULE PO SCH (09:20)
[2018-08-07] MEDS: FERROUS SULFATE 325 MG TABLET PO SCH ×2 (09:21→17:08)
[2018-08-07] MEDS: BUSPIRONE HCL 10 MG TABLET PO SCH ×2 (09:21→22:16)
[2018-08-07] MEDS: MEGESTROL ACETATE 20 MG TABLET PO SCH (09:22)
[2018-08-07] MEDS: POTASSIUM CHLORIDE 10 MEQ CAPSULE.ER PO SCH ×2 (09:22→17:07)
[2018-08-07] MEDS: NORMAL SALINE 10 ML SDV (SCHEDULED) IV SCH ×2 (09:23→22:17)
[2018-08-07] MEDS: COLLAGENASE CLOSTRIDIUM HIST. OINT 30 GM TOP SCH ×2 (09:23→22:21)
[2018-08-07] MEDS ORDERED: FUROSEMIDE INJ/PF 20 MG/2 ML SDV IV SCH (10:00)
[2018-08-07] MEDS ORDERED: ONDANSETRON HCL INJ/PF 4 MG/2 ML SDV IV PRN (11:00)
[2018-08-07] MEDS ORDERED: POTASSIUM CHLORIDE 10 MEQ CAPSULE.ER PO ONE (11:00)
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
[2018-08-07 12:36] LABS: CALCIUM RANDOM URINE 18.9 mg/dL (Not Estab.); CREATININE URINE 6.6 mg/dL (Not Estab.)
[2018-08-07] MEDS: LEVOFLOXACIN 750 MG TABLET PO SCH (13:58)
[2018-08-07] MEDS ORDERED: BUSPIRONE HCL 10 MG TABLET PO ONE (15:00)
[2018-08-07] MEDS: CARVEDILOL 12.5 MG TABLET PO SCH (17:08)
[2018-08-07] MEDS: FOLIC ACID/VITAMIN B COMP W-C CAPSULE PO SCH (17:08)
--- NOTE | 2018-08-08 01:15 | PDOC PROGRESS REPORT ---
Subjective Progress Note for:: 08/08/18 Subjective:: Is a 57-year-old female with multiple decubitus ulcers due to an inability to ambulate or move. She denies significant foot pain. She denies fevers or chills. She also denies chest pain, shortness of breath, nausea, vomiting, abdominal pain, blurry vision, dizziness, orthostasis, hearing difficulties. Reason For Visit: SEPSIS Physical Exam Vital Signs: Temp Pulse Resp BP Pulse Ox 97.9 F 86 16 140/71 H 96 08/07/18 16:14 08/07/18 19:00 08/07/18 16:14 08/07/18 16:14 08/07/18 16:14 Intake & Output 08/06/18 08/07/18 08/08/18 06:59 06:59 06:59 Intake Total 1773 2226 1074 Output Total 6100 3425 1600 Balance -4327 -1199 -526 Weight 127 kg 127.8 kg Exam: General appearance: PRESENT: no acute distress, morbidly obese Head exam: PRESENT: normocephalic Eye exam: PRESENT: EOMI, PERRLA. ABSENT: scleral icterus Mouth exam: PRESENT: moist, neck supple Teeth exam: PRESENT: poor dentation Neck exam: ABSENT: meningismus, tenderness, thyromegaly, tracheal deviation Respiratory exam: PRESENT: unlabored. ABSENT: chest wall tenderness, tachypnea, wheezes Cardiovascular exam: PRESENT: RRR Pulses: PRESENT: normal radial pulses GI/Abdominal exam: PRESENT: soft. ABSENT: tenderness Rectal exam: PRESENT: deferred Gentrourinary exam: PRESENT: other - Sheets present Extremities exam: PRESENT: +2 edema - Bilateral lower extremities, other - Right foot: large soft tissue defect (plantar aspect) with exposed heel, this covers approximately 50 to 60% of the entire surface area of the foot. Left foot: Large skin and soft tissue defect on the lateral aspect, approximately 20% of the total surface area of the foot. There are several areas of moderately viable tissue on bilateral feet. No active infection is present. No purulence. No foul odor. Foot is stable. Neurological exam: PRESENT: alert, awake, oriented to person, oriented to place, oriented to time, oriented to situation Psychiatric exam: PRESENT: anxious Focused psych exam: ABSENT: delusional Skin exam: PRESENT: other - See extremity exam. Left posterior thigh wound: Stage IV decubitus ulcer with exposed muscle and subcutaneous fat. No active necrosis. Results Laboratory Results: 08/07/18 05:30 08/07/18 05:30 08/07/18 08/07/18 05:30 05:30 WBC 11.1 H RBC 3.43 L Hgb 9.9 L Hct 30.3 L MCV 88 MCH 28.9 MCHC 32.7 RDW 18.3 H Plt Count 234 Seg Neutrophils % Not Reportable Lymphocytes % Not Reportable Monocytes % Not Reportable Eosinophils % Not Reportable Basophils % Not Reportable Absolute Neutrophils Not Reportable Absolute Lymphocytes Not Reportable Absolute Monocytes Not Reportable Absolute Eosinophils Not Reportable Absolute Basophils Not Reportable Sodium 140.4 Potassium 3.2 L Chloride 110 H Carbon Dioxide 26 Anion Gap 4 L BUN 13 Creatinine 0.54 Est GFR ( Amer) > 60 Est GFR (Non-Af Amer) > 60 Glucose 93 Calcium 8.5 Total Bilirubin 0.7 AST 42 H ALT 20 Alkaline Phosphatase 144 H Total Protein 5.3 L Albumin 2.2 L Impressions: Chest X-Ray 07/29/18 15:16 IMPRESSION: NO ACUTE RADIOGRAPHIC FINDING IN THE CHEST. Foot X-Ray 07/29/18 15:30 IMPRESSION: 1. Suboptimal exam due to patient positioning. Age indeterminate minimally displaced fracture of the proximal phalanx of the right 5th digit. 2. Possible osseous erosions of the posterior right calcaneus underlying the patient's known soft tissue ulcer concerning for active osteitis. 3. Soft tissue ulcer overlying the proximal left 5th metatarsal without definite radiographic findings to suggest active osteitis. Guidance Fluoroscopy 07/31/18 00:00 IMPRESSION: SUCCESSFUL PLACEMENT OF A 5 FR DUAL LUMEN 28 CM PICC IN THE LEFT BASILIC VEIN. Interventional Vascular Procedure 07/31/18 00:00 IMPRESSION: SUCCESSFUL PLACEMENT OF A 5 FR DUAL LUMEN 28 CM PICC IN THE LEFT BASILIC VEIN. PICC Line Insertion 07/31/18 13:06 IMPRESSION: SUCCESSFUL PLACEMENT OF A 5 FR DUAL LUMEN 28 CM PICC IN THE LEFT BASILIC VEIN. Assessment & Plan - Diagnosis (1) Decubitus ulcer, stage IV Qualifiers: Pressure injury location: thigh Laterality: left Qualified Code(s): L89.224 - Pressure ulcer of left hip, stage 4 Is this a current diagnosis for this admission?: Yes (2) Morbid obesity Is this a current diagnosis for this admission?: Yes (3) Pressure ulcer of both feet, stage 4 Is this a current diagnosis for this admission?: Yes - Plan Summary Plan Summary: This is a 57-year-old female with severe decubiti of multiple locations. Her right foot is, I believe, unsalvageable. Her left foot may potentially be salvageable, with significant rehabilitation and aggressive wound care. The left posterior thigh wound is clean, without signs of infection or necrosis. I have again discussed treatment options including amputation. I have recommended right above knee amputation due to her inability to walk, and the distinct likelihood of a nonhealing BKA. The pt is not interested in above knee amputation. She "just wants a foot amputation". I have tried to educate her regarding amputation levels, but she does not comprehend her own medical care. Her left foot is still threatened. I have discussed further wound care with her. I have again recommended she seek the expertise of a plastic surgeon, in an effort to establish some coverage for the foot. Continue with local wound care for now. Again, she would greatly benefit from an evaluation by plastic surgery and/or transfer to a tertiary care center.
[2018-08-08] MEDS: MORPHINE SULFATE 10 MG/ML INJ IV PRN ×4 (04:42→14:41)
[2018-08-08 05:10] LABS: ABSOLUTE BASOPHILS # (AUTO) 0.1 10^3/uL (0.0-0.2); ABSOLUTE LYMPHOCYTES (AUTO) 2.4 10^3/uL (0.5-4.7); ABSOLUTE MONOCYTES (AUTO) 1.3 10^3/uL (0.1-1.4); ABSOLUTE NEUT (AUTO) 9.8 10^3/uL (1.7-8.2); BASOPHILS % (AUTO) 0.6 % (0-2); EOSINOPHILS % (AUTO) 0.2 % (0-6); HEMATOCRIT 33.4 % (36.0-47.0); LYMPHOCYTES % (AUTO) 17.3 % (13-45); MEAN CORPUSCULAR HEMOGLOBIN 28.8 pg (27.0-33.4); MEAN CORPUSCULAR HGB CONC 33.1 g/dL (32.0-36.0); MEAN CORPUSCULAR VOLUME 87 fl (80-97); MONOCYTES % (AUTO) 9.4 % (3-13); PLATELET COUNT 270 10^3/uL (150-450); RED BLOOD COUNT 3.83 10^6/uL (3.72-5.28); RED CELL DISTRIBUTION WIDTH 18.2 % (11.5-14.0); SEGMENTED NEUTROPHILS % (AUTO) 72.5 % (42-78); TOTAL CELLS COUNTED % (AUTO) 100 %; WHITE BLOOD COUNT 13.6 10^3/uL (4.0-10.5)
[2018-08-08 05:28] LABS: ALANINE AMINOTRANSFERASE 16 U/L (9-52); ALBUMIN 2.6 g/dL (3.5-5.0); ALKALINE PHOSPHATASE 178 U/L (38-126); ANION GAP 8 (5-19); ASPARTATE AMINO TRANSFERASE 52 U/L (14-36); BILIRUBIN,DIRECT 0.6 mg/dL (0.0-0.4); BILIRUBIN,TOTAL 0.9 mg/dL (0.2-1.3); BLOOD UREA NITROGEN 14 mg/dL (7-20); CALCIUM 9.3 mg/dL (8.4-10.2); CARBON DIOXIDE 21 mmol/L (22-30); CHLORIDE 109 mmol/L (98-107); GLUCOSE 98 mg/dL (75-110); SODIUM 138.2 mmol/L (137-145); TOTAL PROTEIN 6.5 g/dL (6.3-8.2)
[2018-08-08] MEDS: HEPARIN SOD (PORCINE) 5,000 UNIT/ML 1 ML SYRINGE SUBCUT SCH ×2 (05:44→13:40)
[2018-08-08] MEDS: GABAPENTIN 100 MG CAPSULE PO SCH ×2 (05:45→14:40)
[2018-08-08] MEDS: CARVEDILOL 12.5 MG TABLET PO SCH (05:46)
[2018-08-08] MEDS: PANTOPRAZOLE SODIUM 40 MG TABLET.DR PO SCH (05:46)
[2018-08-08] MEDS: DOCUSATE SODIUM 100 MG CAPSULE PO SCH (09:14)
[2018-08-08] MEDS: BUSPIRONE HCL 10 MG TABLET PO SCH (09:15)
[2018-08-08] MEDS: VENLAFAXINE HCL 37.5 MG CAP.SR.24H PO SCH (09:15)
[2018-08-08] MEDS: POTASSIUM CHLORIDE 10 MEQ CAPSULE.ER PO SCH (09:15)
[2018-08-08] MEDS: NORMAL SALINE 10 ML SDV (SCHEDULED) IV SCH (09:16)
[2018-08-08] MEDS: MEGESTROL ACETATE 20 MG TABLET PO SCH (09:16)
[2018-08-08] MEDS: COLLAGENASE CLOSTRIDIUM HIST. OINT 30 GM TOP SCH (09:16)
[2018-08-08] MEDS: FERROUS SULFATE 325 MG TABLET PO SCH (09:16)
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
--- NOTE | 2018-08-08 13:41 | PDOC PROGRESS REPORT ---
Subjective Progress Note for:: 08/08/18 Reason For Visit: SEPSIS Physical Exam Vital Signs: Temp Pulse Resp BP Pulse Ox 98.1 F 84 16 142/72 H 95 08/08/18 03:54 08/08/18 07:00 08/08/18 03:54 08/08/18 03:54 08/08/18 03:54 Intake & Output 08/07/18 08/08/18 08/09/18 06:59 06:59 06:59 Intake Total 2226 1074 Output Total 342 3000 Balance -1199 -1926 Weight 127.8 kg 125.2 kg General appearance: PRESENT: no acute distress Extremities exam: PRESENT: other - Bilateral lower extremity with palpable 2+ pedal pulses. At the pressure areas along the lateral aspect of the feet with full-thickness decubitus ulcers with extensive soft tissue loss at the pressure bearing areas but no purulent drainage and no erythema. Exposed lateral metatarsal bone bilaterally. Portion of right calcaneus exposed. Results Laboratory Results: 08/08/18 04:33 08/08/18 04:33 08/08/18 08/08/18 04:33 04:33 WBC 13.6 H RBC 3.83 Hgb 11.0 L Hct 33.4 L MCV 87 MCH 28.8 MCHC 33.1 RDW 18.2 H Plt Count 270 Seg Neutrophils % 72.5 Lymphocytes % 17.3 Monocytes % 9.4 Eosinophils % 0.2 Basophils % 0.6 Absolute Neutrophils 9.8 H Absolute Lymphocytes 2.4 Absolute Monocytes 1.3 Absolute Eosinophils 0.0 Absolute Basophils 0.1 Sodium 138.2 Potassium 4.0 Chloride 109 H Carbon Dioxide 21 L Anion Gap 8 BUN 14 Creatinine 0.60 Est GFR ( Amer) > 60 Est GFR (Non-Af Amer) > 60 Glucose 98 Calcium 9.3 Magnesium 1.7 Total Bilirubin 0.9 AST 52 H ALT 16 Alkaline Phosphatase 178 H Total Protein 6.5 Albumin 2.6 L Impressions: Chest X-Ray 07/29/18 15:16 IMPRESSION: NO ACUTE RADIOGRAPHIC FINDING IN THE CHEST. Foot X-Ray 07/29/18 15:30 IMPRESSION: 1. Suboptimal exam due to patient positioning. Age indeterminate minimally displaced fracture of the proximal phalanx of the right 5th digit. 2. Possible osseous erosions of the posterior right calcaneus underlying the patient's known soft tissue ulcer concerning for active osteitis. 3. Soft tissue ulcer overlying the proximal left 5th metatarsal without definite radiographic findings to suggest active osteitis. Guidance Fluoroscopy 07/31/18 00:00 IMPRESSION: SUCCESSFUL PLACEMENT OF A 5 FR DUAL LUMEN 28 CM PICC IN THE LEFT BASILIC VEIN. Interventional Vascular Procedure 07/31/18 00:00 IMPRESSION: SUCCESSFUL PLACEMENT OF A 5 FR DUAL LUMEN 28 CM PICC IN THE LEFT BASILIC VEIN. PICC Line Insertion 07/31/18 13:06 IMPRESSION: SUCCESSFUL PLACEMENT OF A 5 FR DUAL LUMEN 28 CM PICC IN THE LEFT BASILIC VEIN. Assessment & Plan - Diagnosis (1) Decubitus ulcer, stage IV Qualifiers: Pressure injury location: thigh Laterality: unspecified laterality Qualified Code(s): L89.204 - Pressure ulcer of unspecified hip, stage 4 Is this a current diagnosis for this admission?: Yes Plan: Bilateral feet stage IV decubitus ulcers with extensive soft tissue loss. Patient would benefit from bilateral AKA in light of her immobility. However patient would like to preserve her limbs if possible although she is agreeable to bilateral AKA if no other intervention is possible. Since we do not have plastic surgery at our hospital, patient will be transferred to a tertiary care center for plastic surgery evaluation and a second opinion about bilateral AKA. Her main problem is immobility and not a vascular issue.
--- NOTE | 2018-08-08 13:52 | PDOC TRANSFER SUMMARY ---
General Admission Date/PCP: 07/29/18 16:50 MARILYN RUDD PA-C Resuscitation Status: Full Code - Transfer Diagnosis (1) Hypercalcemia due to immobilization Is this a current diagnosis for this admission?: Yes Diagnosis Summary: Improving. Corrected Ca 11.5 from 14.8. Likely due to immobilization. PTH 6.2. Vitamin D <12. Pending urinary Ca Patient denies any history of malignancy or excessive antacid or extra vitamin D intake. 08/05/2018, received 400 units of calcitonin, 1 dose of zoledronic acid, and IV fluid was increased to 200 cc/h, IV Lasix 20 mg IV twice daily with a goal of urine output of 100 250 mL/h. Decrease IV fluid to 80 mL/h, Lasix 20 mg IV daily. Calcium level tomorrow. 08/07/2018-patient's latest serum calcium is 8.5. Hypercalcemia due to immobilization is resolved. Presently on IV fluids which was discontinued from today. 08/08/2018-serum calcium level is 9.3. Within normal limits. (2) Sepsis Is this a current diagnosis for this admission?: Yes Diagnosis Summary: Resolved. Vitals WNL. 08/02/2018: SBP 88980, T-max 98.3, HR 390258, RR 1220, SPO2 97% RA. WBC 14.2, hemoglobin 7.5, platelets 273, sodium 137, potassium 3.0, bicarb 24, creatinine 0.4, 08/01/2018. SBP 042902, T-max 98.1, pulse 919842, RR 1323, SPO2 96.8% RA WBC 18.3, hemoglobin 8.4, platelets 290, sodium 136, potassium 3.0, bicarb 22, BUN 10, 18 2018. 07/31/2018: SBP 97957, T-max 98.0, pulse 380178, RR 1618, SPO2 98% RA. WBC 14.4, hgb 7.8, plt 276, Sodium 136.0, potassium 3.3, bicarb 23, BUN 18, creatinine 0.7, calcium 9.9, phosphorus 2.8 07/30/2018: SBP 085974, T-max 98.0, pulse 33978, RR 1218, SPO2 97% RA. WBC 23.4, hemoglobin 9.5, platelets 303, bands 2, Na, 134.5, K 4.4, bicarb 24, BUN 31, creatinine 0.8 Initially was evidenced by leukocytosis, metabolic acidosis, hyponatremia, abnormal LFTs, tachycardia, hypotension. Polymicrobial. Most likely source decubiti ulcers. S/P day 8 extensive I&D of left posterior thigh bilateral feet Antibiotics day 8. Received 8 days of IV antibiotics. Vancomycin 07/29/2018 to 08/03/2018. Zosyn 07/29/2018 to 08/06/2018. Levofloxacin 08/04/2018 to present. 07/30/2018. Wound culture growing Morganella morganii and E. coli both sensitive to levofloxacin. 07/29/2018. Urine culture grows E. coli and Proteus pansensitive. 07/29/2018. Blood cultures no growth negative. NH4 < 8.7 PTH 6.2. TSH 6.16. CRP 70.6, ESR 116. Continue IV empiric antibiotics, volume resuscitation, follow-up cultures. 08/07/2018-patient is presently on IV levo floxacillin. Previously received IV Zosyn and IV vancomycin. The urine culture is positive for E. coli and Proteus mirabilis. Decubitus ulcer culture positive for Morganella morganii E. coli and group B streptococcus. T-max is 97.2. I discussed the plan of care with the patient she tentatively agreed for the right foot amputation. I personally spoke to Dr. Harkins he is going to see the patient later on today. 08/08/2018-patient is presently on IV levo floxacillin. Completed the course of antibiotic therapy with IV Zosyn and IV vancomycin. Urine culture is positive for E. coli and Proteus mirabilis. Decubitus ulcer culture positive for Morganella morganii, E. coli, group B streptococcus. T-max is 98. After long discussion patient agreed for a right below-knee amputation. I spoke to Dr. Shearer he agreed to come and see the patient today. Explained to the patient that she is still need to go to see a plastic surgeon for her left lower leg wounds. (3) Physical deconditioning Is this a current diagnosis for this admission?: Yes Diagnosis Summary: Due to underlying medical condition and immobility. Continue physical therapy. 08/07/2018-patient admitted with physical deconditioning social workers are working on the placement. Plan is to continue the physical therapy. Physical condition most likely secondary to sepsis and sacral wounds and severe peripheral vascular disease with right foot unsalvageable. 08/07/2018-patient admitted with physical deconditioning. Patient unable to come out of the bed to participate in physical therapy. She has bilateral lower leg wounds and sacral wound. The pressure ulcer is on the back of the left thigh. (4) Hypokalemia Is this a current diagnosis for this admission?: Yes Diagnosis Summary: No acute EKG changes. Continue supplemental potassium. BMP tomorrow. 08/07/2018-patient serum potassium is 3.2 potassium supplementation was provided this morning. 08/08/2018-patient serum potassium is 4.0 hypokalemia is resolved. (5) UTI (urinary tract infection) Is this a current diagnosis for this admission?: Yes Diagnosis Summary: Due to E. coli and Proteus pansensitive. Received 6 days of IV antibiotics. 5 days of vancomycin and 6 days of Zosyn. Switch to p.o. levofloxacin. Antibiotics day 8. 07/30/2018. Wound culture from foot grows Morganella morganii and E. coli. Both sensitive to levofloxacin. 07/29/2018. Urine culture grows Proteus and E. coli pansensitive. 07/29/2018. Blood cultures no growth x48 hours. Continue antibiotics. Follow-up urine culture. 08/07/2018-urine culture is positive for E. coli and Proteus mirabilis. Pansensitive. presently on IV levo floxacillin. 08/08/2018-urine culture is positive for E. coli and Proteus mirabilis pansensitive plan is to continue IV levofloxacin at this point. (6) Infestation by insect Is this a current diagnosis for this admission?: Yes (7) Morbid obesity Is this a current diagnosis for this admission?: Yes (8) Depression Is this a current diagnosis for this admission?: Yes (9) Decubitus ulcer of left buttock Is this a current diagnosis for this admission?: Yes (10) Anemia Is this a current diagnosis for this admission?: Yes Diagnosis Summary: Normocytic anemia. Likely mild type factorial is dietary and anemia of chronic disease. H&H stable. 08/02/2018: SBP 65008, T-max 98.3, HR 986209, RR 1220, SPO2 97% RA. WBC 14.2, hemoglobin 7.5, platelets 273, sodium 137, potassium 3.0, bicarb 24, c reatinine 0.4 08/02/2018: Status post 2 PRBC transfusion. 07/31/2018: Status post 1 PRBC transfusion. Monitor H&H Pending iron work-up. 08/07/2018-patient has normocytic anemia most likely secondary to multifactorial causes like sepsis and infected decubitus ulcers. 08/08/2018-patient has normocytic anemia most likely secondary to underlying sepsis. (11) Hypertension Is this a current diagnosis for this admission?: Yes Diagnosis Summary: Continue monitoring vitals. Normotensive. PRN hydralazine. 08/07/2018-patient blood pressure today is 127/75 stable. Plan is to continue the present management. 08/08/2018-patient blood pressure today is 144/77. Stable. Plan is to continue the present management. (12) Homeless single person Is this a current diagnosis for this admission?: Yes (13) Lymphedema Is this a current diagnosis for this admission?: No Diagnosis Summary: Improving. Chronic. Likely worsened due to low protein status. Lower extremities if tolerated, compression stocking. - Transfer Medications Home Medications: No Home Medications 07/29/18 Transfer Medications: Current Medications Acetaminophen (Tylenol 325 Mg Tablet) 325 mg PO Q4HP PRN PRN Reason: FOR PAIN SCALE 1-2 Stop: 08/28/18 17:11 Last Admin: 08/03/18 05:11 Dose: 325 mg Documented by: Albuterol/Ipratropium (Duoneb 3 Ml Ampul) 3 ml NEB RTQ6HP PRN PRN Reason: SHORTNESS OF BREATH Stop: 08/28/18 17:11 Buspirone HCl (Buspar 10 Mg Tablet) 10 mg PO Q12 [facility] Stop: 09/06/18 21:59 Last Admin: 08/08/18 09:15 Dose: 10 mg Documented by: Carvedilol (Coreg 12.5 Mg Tablet) 25 mg PO Q12A [facility] Stop: 09/06/18 17:59 Last Admin: 08/08/18 05:46 Dose: 25 mg Documented by: Collagenase (Santyl Ointment 30 Gm) 1 applic TOP Q12 [facility] Stop: 09/02/18 21:59 Last Admin: 08/08/18 09:16 Dose: 1 applic Documented by: Docusate Sodium (Colace 100 Mg Capsule) 100 mg PO DAILY [facility] Stop: 08/30/18 09:59 Last Admin: 08/08/18 09:14 Dose: Not Given Documented by: Ferrous Sulfate (Feosol 325 Mg Tablet) 325 mg PO BIDPCBS [facility] Stop: 09/03/18 08:59 Last Admin: 08/08/18 09:16 Dose: 325 mg Documented by: Gabapentin (Neurontin 100 Mg Capsule) 100 mg PO Q8 [facility] Stop: 08/28/18 21:59 Last Admin: 08/08/18 05:45 Dose: 100 mg Documented by: Heparin Sodium (Porcine) (Heparin Inj 5,000 Units/Ml 1 Ml Syringe) 5,000 unit SUBCUT Q8 [facility] Stop: 08/29/18 05:59 Last Admin: 08/08/18 13:40 Dose: Not Given Documented by: Heparin Sodium (Porcine) (Heparin Flush 10 Unit/Ml 5 Ml Disp.Syrg) 30 unit IV Q12 [facility] Stop: 08/30/18 21:59 Last Admin: 08/08/18 09:15 Dose: 30 unit Documented by: Heparin Sodium (Porcine) (Heparin Flush 10 Unit/Ml 5 Ml Disp.Syrg) 30 unit IV .AFTER EACH USE PRN Stop: 08/30/18 16:59 Hydralazine HCl (Apresoline Inj/Pf 20 Mg/1 Ml Sdv) 10 mg IV Q3HP PRN PRN Reason: Give For Sbp > [150] Stop: 09/02/18 19:13 Levofloxacin (Levaquin 750 Mg Tablet) 750 mg PO NOON [facility] Stop: 08/11/18 11:59 Last Admin: 08/07/18 13:58 Dose: 750 mg Documented by: Megestrol Acetate (Megace 20 Mg Tablet) 20 mg PO DAILY [facility] Stop: 09/03/18 12:59 Last Admin: 08/08/18 09:16 Dose: 20 mg Documented by: Morphine Sulfate (Morphine 10 Mg/Ml Inj) 1 mg IV Q4HP PRN PRN Reason: FOR PAIN SCALE 3-4 Stop: 08/12/18 13:50 Last Admin: 08/08/18 06:13 Dose: 1 mg Documented by: Morphine Sulfate (Morphine 10 Mg/Ml Inj) 2 mg IV Q4HP PRN PRN Reason: FOR PAIN SCALE 4-5 Stop: 08/12/18 15:59 Last Admin: 08/08/18 10:35 Dose: 2 mg Documented by: Multivit/Ca Carb/B Cmplx/FA/Prenat (Nephrocaps Multiple Vitamin Capsule) 1 cap PO ACSUPPER [facility] Stop: 08/29/18 15:59 Last Admin: 08/07/18 17:08 Dose: 1 cap Documented by: Ondansetron HCl (Zofran Inj/Pf 4 Mg/2 Ml Sdv) 4 mg IV Q4HP PRN PRN Reason: FOR NAUSEA/VOMITING Stop: 08/28/18 17:11 Pantoprazole Sodium (Protonix [address] Tablet) 40 mg PO BID@0600,1700 [facility] Stop: 08/29/18 05:59 Last Admin: 08/08/18 05:46 Dose: 40 mg Documented by: Potassium Chloride (Klor-Con 10 Meq Capsule Er) 60 meq PO BID [facility] Stop: 09/01/18 09:59 Last Admin: 08/08/18 09:15 Dose: 40 meq Documented by: Promethazine HCl (Phenergan 25 Mg Tablet) 12.5 mg PO Q4HP PRN PRN Reason: FOR NAUSEA/VOMITING Stop: 08/28/18 17:11 Sodium Chloride (Nacl 0.9% Inj/Pf 10 Ml Sdv) 10 ml IV Q12 [facility] Stop: 08/30/18 21:59 Last Admin: 08/08/18 09:16 Dose: 10 ml Documented by: Sodium Chloride (Nacl 0.9% Inj/Pf 10 Ml Sdv) 10 ml IV .AFTER EACH USE PRN Stop: 08/30/18 16:59 Temazepam (Restoril 7.5 Mg Capsule) 7.5 mg PO HSP PRN PRN Reason: SLEEP OR INSOMNIA Stop: 08/12/18 17:11 Last Admin: 08/07/18 22:35 Dose: 7.5 mg Documented by: Venlafaxine HCl (Effexor Xr 37.5 Mg Cap.Sr) 37.5 mg PO DAILY [facility] Stop: 08/29/18 09:59 Last Admin: 08/08/18 09:15 Dose: 37.5 mg Documented by: - Allergies Allergies/Adverse Reactions: No Known Drug Allergies Allergy (Verified 06/19/18 04:03) Hospital Course Hospital Course: 08/08/[id number]-mhmk-old female with history of obesity, hypothyroidism recent admission for salicylate toxicity came back to shelved covered with maggots cockroaches found to have pressure wounds on the left back of upper thigh and 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 X-rays are negative for oste omyelitis. Initially was treated with IV Zosyn and IV vancomycin. Surgical consult was done initial plan was right elbow knee amputation and thought processes left leg was. Verbal and she may need to see a plastic surgeon for flapping. Patient declined surgical procedure we continued antibiotic therapy during the hospital stay. Wound cultures came back positive for Morganella morganii, group B streptococcus, E. coli. Urine cultures also came back positive for E. coli and Proteus mirabilis. Presently on IV levo floxacillin. Afebrile. Today after long discussion with the patient patient finally agreed for a right above-knee amputation I called the surgeon statement distribution clerk Dr. REINALDO DICKSON and that he came and evaluated the patient in his opinion patient has a very good circulation in the lower extremities good peripheral pulses and his recommendation is transfer the patient to tertiary facility with the plastic surgery services are available for flapping of the bilateral foot stage IV wounds. In his opinion both lower legs are tolerable at this point. I discussed the plan with the patient she agreed to be transferred to a tertiary facility and to be evaluated by the plastic surgeon. I spoke to hospitalist at [facility] he agreed to take the patient there for further management. Unfortunately no beds are available there for the next 24 hours. In the meantime we are going to arrange for an MRI of the both lower extremities to rule out osteomyelitis and CT angiogram of the lower extremities for further information about the circulation in the lower extremities. All the lab investigations H&P discharge summary progress notes this x-ray is MRI and angiogram reports will be sent with the patient to [facility] at the time of discharge. Physical Exam Vital Signs: Temp Pulse Resp BP Pulse Ox 98.0 F 87 14 126/71 H 95 08/08/18 07:21 08/08/18 07:21 08/08/18 07:21 08/08/18 07:21 08/08/18 07:21 Intake & Output 08/07/18 08/08/18 08/09/18 06:59 06:59 06:59 Intake Total 2222 9914 Output Total 3213 3000 Balance -1199 -1926 Weight 127.8 kg 125.2 kg General appearance: PRESENT: no acute distress, morbidly obese Head exam: PRESENT: atraumatic Eye exam: PRESENT: PERRLA Mouth exam: PRESENT: moist, tongue midline Teeth exam: PRESENT: poor dentation Neck exam: ABSENT: carotid bruit, JVD, lymphadenopathy, thyromegaly Respiratory exam: PRESENT: clear to auscultation naz. ABSENT: rales, rhonchi, wheezes Cardiovascular exam: PRESENT: RRR. ABSENT: diastolic murmur, rubs, systolic murmur GI/Abdominal exam: PRESENT: normal bowel sounds, soft. ABSENT: distended, guarding, mass, organolmegaly, rebound, tenderness Rectal exam: PRESENT: deferred Gentrourinary exam: PRESENT: indwelling catheter Neurological exam: PRESENT: alert, awake, oriented to person, oriented to place, oriented to time, oriented to situation, CN II-XII grossly intact. ABSENT: m otor sensory deficit Psychiatric exam: PRESENT: appropriate affect, normal mood. ABSENT: homicidal ideation, suicidal ideation Skin exam: PRESENT: other - Patient has a stage IV pressure wounds in both feet. She is also has a stage IV wound on the back of the left thigh. Results Laboratory Results: 08/08/18 04:33 08/08/18 04:33 08/08/18 08/08/18 04:33 04:33 WBC 13.6 H RBC 3.83 Hgb 11.0 L Hct 33.4 L MCV 87 MCH 28.8 MCHC 33.1 RDW 18.2 H Plt Count 270 Seg Neutrophils % 72.5 Lymphocytes % 17.3 Monocytes % 9.4 Eosinophils % 0.2 Basophils % 0.6 Absolute Neutrophils 9.8 H Absolute Lymphocytes 2.4 Absolute Monocytes 1.3 Absolute Eosinophils 0.0 Absolute Basophils 0.1 Sodium 138.2 Potassium 4.0 Chloride 109 H Carbon Dioxide 21 L Anion Gap 8 BUN 14 Creatinine 0.60 Est GFR ( Amer) > 60 Est GFR (Non-Af Amer) > 60 Glucose 98 Calcium 9.3 Magnesium 1.7 Total Bilirubin 0.9 AST 52 H ALT 16 Alkaline Phosphatase 178 H Total Protein 6.5 Albumin 2.6 L Impressions: Chest X-Ray 07/29/18 15:16 IMPRESSION: NO ACUTE RADIOGRAPHIC FINDING IN THE CHEST. Foot X-Ray 07/29/18 15:30 IMPRESSION: 1. Suboptimal exam due to patient positioning. Age indeterminate minimally displaced fracture of the proximal phalanx of the right 5th digit. 2. Possible osseous erosions of the posterior right calcaneus underlying the patient's known soft tissue ulcer concerning for active osteitis. 3. Soft tissue ulcer overlying the proximal left 5th metatarsal without definite radiographic findings to suggest active osteitis. Guidance Fluoroscopy 07/31/18 00:00 IMPRESSION: SUCCESSFUL PLACEMENT OF A 5 FR DUAL LUMEN 28 CM PICC IN THE LEFT BASILIC VEIN. Interventional Vascular Procedure 07/31/18 00:00 IMPRESSION: SUCCESSFUL PLACEMENT OF A 5 FR DUAL LUMEN 28 CM PICC IN THE LEFT BASILIC VEIN. PICC Line Insertion 07/31/18 13:06 IMPRESSION: SUCCESSFUL PLACEMENT OF A 5 FR DUAL LUMEN 28 CM PICC IN THE LEFT BASILIC VEIN. Plan Discharge Plan: Patient is going to be transferred to [facility] when the bed is available. Time Spent: Greater than 30 Minutes
[2018-08-08] MEDS: LEVOFLOXACIN 750 MG TABLET PO SCH (14:40)
[2018-08-08 14:52] VITALS: BP 152/93
== END 2018-08-08 16:14 | disposition short-term general hospital (02) | DRG 853 ==
LOC: ER 14:16 → EH 16:50 → 3W 21:47
PROVIDERS: ADMIT Internal Medicine; ATTEND Internal Medicine
PROC: 02HV33Z Insertion of Infusion Device into Superior Vena Cava, Percutaneous Approach (ICD-10-PCS; 2018-07-31)
PROC: 30233N1 Transfusion of Nonautologous Red Blood Cells into Peripheral Vein, Percutaneous Approach (ICD-10-PCS; 2018-07-31)
PROC: 0JBR0ZZ Excision of Left Foot Subcutaneous Tissue and Fascia, Open Approach (ICD-10-PCS; principal; 2018-08-01)
PROC: 0JBM0ZZ Excision of Left Upper Leg Subcutaneous Tissue and Fascia, Open Approach (ICD-10-PCS; 2018-08-01)
PROC: 0JBQ0ZZ Excision of Right Foot Subcutaneous Tissue and Fascia, Open Approach (ICD-10-PCS; 2018-08-01)
DX: A41.9 Sepsis, unspecified organism (principal); L89.324 Pressure ulcer of left buttock, stage 4; L89.614 Pressure ulcer of right heel, stage 4; L89.894 Pressure ulcer of other site, stage 4; Z68.43 Body mass index [BMI] 50.0-59.9, adult; E46 Unspecified protein-calorie malnutrition; E11.52 Type 2 diabetes mellitus with diabetic peripheral angiopathy with gangrene; I96 Gangrene, not elsewhere classified; N39.0 Urinary tract infection, site not specified; E87.2 Acidosis; E87.1 Hypo-osmolality and hyponatremia; Z59.0 Homelessness; Z63.4 Disappearance and death of family member; E66.01 Morbid (severe) obesity due to excess calories; T73.0XXA Starvation, initial encounter; I10 Essential (primary) hypertension; E78.5 Hyperlipidemia, unspecified; F32.9 Major depressive disorder, single episode, unspecified; M54.32 Sciatica, left side; M54.31 Sciatica, right side; Z74.01 Bed confinement status; E03.9 Hypothyroidism, unspecified; W57.XXXA Bitten or stung by nonvenomous insect and other nonvenomous arthropods, initial encounter; B96.20 Unspecified Escherichia coli [E. coli] as the cause of diseases classified elsewhere; B96.4 Proteus (mirabilis) (morganii) as the cause of diseases classified elsewhere; B95.1 Streptococcus, group B, as the cause of diseases classified elsewhere; B96.89 Other specified bacterial agents as the cause of diseases classified elsewhere; R31.9 Hematuria, unspecified; F41.9 Anxiety disorder, unspecified; E87.6 Hypokalemia; S92.911A Unspecified fracture of right toe(s), initial encounter for closed fracture; X58.XXXA Exposure to other specified factors, initial encounter
CPT/HCPCS: 01250; 36415; 36430; 36569; 71045; 76937; 77001; 80048; 80053; 80074; 80202; 80307; 81001; 82140; 82272; 82306; 82330; 82340; 82570; 82607; 82728; 82746; 82803; 83051; 83540; 83550; 83605; 83735; 83970; 84100; 84439; 84443; 84481; 85025; 85045; 85610; 85652; 86140; 86850; 86900; 86901; 86920; 87040; 87070; 87077; 87086; 87088; 87186; 87205; 93005; 93010; 96365; 96368; 99285; J0630; J1170; J1642; J1644; J1940; J2250; J2270; J2405; J2543; J2704; J2710; J3010; J3370; J3411; J3475; J3480; J3489; J3490; J7030; J7050; J7060; P9016; P9047